=== PATIENT | male | born 1965 | race American Indian/Alaskan Native ===

== ENCOUNTER 2019-02-10 15:23 | Inpatient (IN) | payer MEDICARE, OTHER ==
[2019-02-10] MEDS ORDERED: Albuterol/Ipratropium 3.0-0.5 MG/3 ML Neb Soln NEB ONE (15:59)
[2019-02-10] MEDS ORDERED: Sodium Chloride 0.9% 1,000 ML IV ONE ×2 (15:59→16:38)
[2019-02-10 16:08] LABS: ANION GAP 19.1
--- NOTE | 2019-02-10 16:10 | EDM.PDOC ---
"ED HPI GENERAL MEDICAL PROBLEM - General Chief Complaint: General Stated Complaint: FLU, EAR INFECTION Time Seen by Provider: 02/10/19 15:35 Source of Information: Reports: Patient History Limitations: Reports: No Limitations - History of Present Illness INITIAL COMMENTS - FREE TEXT/NARRATIVE: The patient presents to the ER with a variety of concerns including earache, headache, fever, and vomiting. The patient states that he has been experiencing these symptoms since Tuesday; symptoms seemed to become worse yesterday. Earache is located to both ears; the patient states that he felt his ears pop yesterday and has green discharge drain bilaterally. Nasal congestion is present; does have thick green discharge from his nose. Headache is present to his forehead. Throat is sore and scratchy. No cough but shortness of breath is reported. The patient has also been experiencing episodes of nausea, vomiting, diarrhea, and on and off fevers. Has not checked his temperature at home, but has taken tylenol which has provided some relief. Patient does report a history of asthma and uses a nebulizer machine at home. No other concerns reported. 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 Headache Pain Score (Numeric/FACES): 10 - Related Data Allergies Allergy/AdvReac Type Severity Reaction Status Date / Time cat pelt standardized Allergy Hives Verified 07/01/14 02:15 allergenic ex [cat pelt standardized extract] Past Medical History Respiratory History: Reports: Asthma Genitourinary History: Reports: Acute Renal Failure, Dialysis Other Genitourinary History: currently not on dialysis Musculoskeletal History: Reports: Osteoporosis, Other (See Below) Other Musculoskeletal History: hip problems - Infectious Disease History Infectious Disease History: Reports: Hepatitis B Social & Family History - Tobacco Use Smoking Status *Q: Never Smoker Second Hand Smoke Exposure: No - Recreational Drug Use Recreational Drug Use: No ED ROS GENERAL - Review of Systems Review Of Systems: See Below Constitutional: Reports: Fever, Chills, Malaise, Weakness HEENT: Reports: Ear Discharge, Ear Pain, Sinus Problem, Throat Pain Respiratory: Reports: Shortness of Breath Cardiovascular: Reports: No Symptoms Endocrine: Reports: No Symptoms GI/Abdominal: Reports: Diarrhea, Nausea, Vomiting : Reports: No Symptoms Musculoskeletal: Reports: No Symptoms Skin: Reports: No Symptoms Neurological: Reports: Headache Hematologic/Lymphatic: Reports: No Symptoms ED EXAM, GENERAL - Physical Exam Exam: See Below Exam Limited By: No Limitations General Appearance: Alert, Mild Distress (Patient appeared to be in mild respiratory distress.) Eye Exam: Bilateral Eye: Normal Inspection, PERRL Ears: Normal External Exam, Other (Air fluid level present behind Right TM) Nose: Normal Inspection, Normal Mucosa, No Blood Throat/Mouth: Other (pharynx erythematous ) Head: Sinus Tenderness (frontal sinuses) Neck: Normal Inspection, Supple, Non-Tender, Full Range of Motion Respiratory/Chest: Lungs Clear, Respiratory Distress Cardiovascular: Normal Peripheral Pulses, Regular Rate, Rhythm, No Edema, No Gallop, No JVD, No Murmur, No Rub GI/Abdominal: Normal Bowel Sounds, Soft, Non-Tender, No Organomegaly, No Distention, No Mass Extremities: Normal Inspection, Normal Range of Motion, Non-Tender, Normal Capillary Refill, No Pedal Edema Neurological: Alert, Oriented, CN II-XII Intact, Normal Cognition, No Motor/ Sensory Deficits Skin Exam: Other (large fistula to LUE) Course - Vital Signs Last Recorded V/S: Last Vital Signs Temp 96.8 F 02/10/19 15:26 Pulse 129 H 02/10/19 16:23 Resp 32 H 02/10/19 15:26 BP 146/88 H 02/10/19 15:26 Pulse Ox 95 02/10/19 15:26 - Orders/Labs/Meds Orders: Active Orders 24 hr Category Date Time Status Peripheral IV Care [RC] . DIRECTED Care 02/10/19 15:36 Active RT Aerosol Therapy [RC] ASDIRECTED Care 02/10/19 16:00 Active Chest 2V [CR] Urgent Exams 02/10/19 16:01 Taken CULTURE BLOOD [BC] Stat Lab 02/10/19 15:41 Received Sodium Chloride 0.9% [Saline Flush] Med 02/10/19 15:35 Active 10 ml FLUSH ASDIRECTED PRN Peripheral IV Insertion Adult [OM.PC] Routine Oth 02/10/19 15:35 Ordered Medication Orders Sodium Chloride (Saline Flush) 10 ml FLUSH ASDIRECTED PRN PRN Reason: Keep Vein Open Labs: Laboratory Tests 02/10/19 02/10/19 02/10/19 Range/Units 15:41 15:41 15:41 WBC 19.2 H (5.0-10.0) 10^3/uL RBC 4.65 (4.6-6.2) 10^6/uL Hgb 15.1 (14.0-18.0) g/dL Hct 41.5 (40.0-54.0) % MCV 89.2 (80-100) fL MCH 32.5 (27.0-34.0) pg MCHC 36.4 H (33.0-35.0) g/dL Plt Count 143 L (150-450) 10^3/uL Neut % (Auto) 95.3 H (42.2-75.2) % Lymph % (Auto) 1.6 L (20.5-50.1) % [place] % (Auto) 3.0 (2-8) % Eos % (Auto) 0.0 L (1.0-3.0) % Baso % (Auto) 0.1 (0.0-1.0) % Sodium 124 L (135-145) mmol/L Potassium 3.1 L (3.6-5.0) mmol/L Chloride 91 L (101-111) mmol/L Carbon Dioxide 17.0 L (21.0-31.0) mmol/L Anion Gap 19.1 BUN 38 H (7-18) mg/dL Creatinine 2.4 H (0.6-1.3) mg/dL Est Cr Clr Drug Dosing 33.65 mL/min Estimated GFR (MDRD) 28 BUN/Creatinine Ratio 15.83 Glucose 131 H (74-105) mg/dL Lactic Acid 4.7 H (0.5-2.2) mmol/L Calcium 7.9 L (8.4-10.2) mg/dl Total Bilirubin 1.2 H (0.2-1.0) mg/dL AST 57 H (10-42) IU/L ALT 16 (10-60) IU/L Alkaline Phosphatase 97 (42-121) IU/L Total Protein 7.4 (6.7-8.2) g/dl Albumin 2.5 L (3.2-5.5) g/dl Globulin 4.9 Albumin/Globulin Ratio 0.51 Meds: Medications Generic Name Dose Route Start Last Admin Trade Name Freq PRN Reason Stop Dose Admin Sodium Chloride 10 ml 02/10/19 15:35 Saline Flush FLUSH ASDIRECTED PRN Keep Vein Open Discontinued Medications Generic Name Dose Route Start Last Admin Trade Name Freq PRN Reason Stop Dose Admin Albuterol/Ipratropium 3 ml 02/10/19 15:59 02/10/19 16:22 Duoneb 3.0-0.5 Mg/3 Ml NEB 02/10/19 16:00 3 ml ONETIME ONE Administration Sodium Chloride 1,000 mls @ 999 mls/hr 02/10/19 15:59 02/10/19 16:17 Normal Saline IV 02/10/19 16:59 999 mls/hr .BOLUS ONE Administration Azithromycin 500 mg/ Sodium 250 mls @ 250 mls/hr 02/10/19 16:38 02/10/19 17: 02 Chloride IV 02/10/19 17:37 250 mls/hr ONETIME ONE Administration Ceftriaxone Sodium 2 gm/ 100 mls @ 200 mls/hr 02/10/19 16:36 Sodium Chloride IV 02/10/19 17:05 ONETIME ONE Sodium Chloride 1,000 mls @ 999 mls/hr 02/10/19 16:38 Normal Saline IV 02/10/19 17:38 .BOLUS ONE - Radiology Interpretation Free Text/Narrative:: [facility] Final Radiology Report Call: [phone] assistance Online chat: [email or web address] Name: ELVI VELASCO Age: 53Years M Date: 02/10/2019 SSN: -- : [id number] Study: XR CHEST 2 VIEWS FRONTAL & LAT Requesting Physician: KAEL BOWERS Images: 3 Addl Studies: Provided Clinical History: Contrast: Contrast Medium: Contrast Amount: Contrast Method: Page 1 of 2 EXAM: XR Chest, 2 Views EXAM DATE/TIME: 02/10/2019 4:04 PM CLINICAL HISTORY: 53 years old, male; Tachypnea TECHNIQUE: Imaging protocol: XR of the chest Views: 2 views. COMPARISON: No relevant prior studies available. FINDINGS: Lungs: Lower lobe atelectasis or infiltrate in the posterior gastric angles. Pleural space: There is blunting of the posterior costophrenic angles. Heart/Mediastinum: The heart demonstrates mild diffuse enlargement. The pulmonary arteries are not enlarged. Bones/joints: Advanced degenerative joint disease is seen in the left shoulder. IMPRESSION: Posterior pleural effusion and atelectasis/infiltrate seen on the lateral view but difficult to localize on the frontal. Thank you for allowing us to participate in the care of your patient. Dictated and Authenticated by: Kp Gaytan MD [place], [place] | Final Radiology Report CONFIDENTIALITY STATEMENT This report is intended only for use by the referring physician, and only in accordance with law. If you received this in error, call [phone]. Page 2 of 2 02/10/2019 4:21 PM Central Time ([place] & [place]) Departure - Departure Time of Disposition: 17:40 (admitted to Dr. Garcia) Disposition: Admitted As Inpatient 64 Condition: Serious Clinical Impression: Pneumonia Qualifiers: Pneumonia type: due to unspecified organism Laterality: left Lung location: lower lobe of lung Qualified Code(s): J18.1 - Lobar pneumonia, unspecified organism Sepsis Qualifiers: Sepsis type: sepsis due to unspecified organism Sepsis acute organ dysfunction status: with acute organ dysfunction Severe sepsis acute organ dysfunction type : acute renal failure Acute renal failure type: unspecified Severe sepsis shock status: without septic shock Qualified Code(s): A41.9 - Sepsis, unspecified organism; R65.20 - Severe sepsis without septic shock; N17.9 - Acute kidney failure, unspecified Cellulitis of lower extremity Qualifiers: Laterality: left Qualified Code(s): L03.116 - Cellulitis of left lower limb - Discharge Information *PRESCRIPTION DRUG MONITORING PROGRAM REVIEWED*: No *COPY OF PRESCRIPTION DRUG MONITORING REPORT IN PATIENT KATELIN: No Forms: ED Department Discharge - My Orders Last 24 Hours: My Active Orders 02/10/19 15:35 Sodium Chloride 0.9% [Saline Flush] 10 ml FLUSH ASDIRECTED PRN Peripheral IV Insertion Adult [OM.PC] Routine 02/10/19 15:36 Peripheral IV Care [RC] . DIRECTED 02/10/19 15:41 CULTURE BLOOD [BC] Stat 02/10/19 16:00 RT Aerosol Therapy [RC] ASDIRECTED 02/10/19 16:01 Chest 2V [CR] Urgent - Assessment/Plan Last 24 Hours: My Active Orders 02/10/19 15:35 Sodium Chloride 0.9% [Saline Flush] 10 ml FLUSH ASDIRECTED PRN Peripheral IV Insertion Adult [OM.PC] Routine 02/10/19 15:36 Peripheral IV Care [RC] . DIRECTED 02/10/19 15:41 CULTURE BLOOD [BC] Stat 02/10/19 16:00 RT Aerosol Therapy [RC] ASDIRECTED 02/10/19 16:01 Chest 2V [CR] Urgent"
[2019-02-10] MEDS ORDERED: cefTRIAXone 2 GM in Sodium Chloride 0.9% 100 ML IV ONE (16:36)
[2019-02-10] MEDS ORDERED: Azithromycin 500 MG in Sodium Chloride 0.9% 250 ML IV ONE (16:38)
[2019-02-10] MEDS ORDERED: Potassium Chloride 10 MEQ Tab.ER PO ONE ×3 (18:00→23:00)
[2019-02-10] MEDS ORDERED: fentaNYL 50 MCG/HR Transdermal Patch TRDERM SCH (18:00)
[2019-02-10] MEDS ORDERED: Acetaminophen 325 MG Tab PO ONE (18:09)
--- NOTE | 2019-02-10 18:13 | PCM.HP ---
H&P History of Present Illness - General Date of Service: 02/10/19 Admit Problem/Dx: Admission Diagnosis/Problem Admission Diagnosis/Problem Sepsis Source of Information: Patient - History of Present Illness Initial Comments - Free Text/Narative: 53-year-old with a history of chronic pain syndrome on fentanyl, oxycodone. The patient says he has been sleepy lately and only using fentanyl at night. Last oxycodone was a day ago He presented with nausea, vomiting, diarrhea, shakiness, sore throat, earache [place] subjective fever. Increasing shortness of breath. He was not able to eat for days. No abdominal pain. Symptoms started a week ago and got worse day by day Headache Pain Score (Numeric/FACES): 10 - Related Data Allergies/Adverse Reactions: Allergies Allergy/AdvReac Type Severity Reaction Status Date / Time cat pelt standardized Allergy Hives Verified 02/10/19 17:49 allergenic ex [cat pelt standardized extract] Home Medications: Home Meds Metoprolol Succinate 100 mg PO DAILY 02/10/19 [History] Multivitamin [Multivitamins] 1 each PO DAILY 02/10/19 [History] fentaNYL [Duragesic] 75 mcg TOP ASDIRECTED 02/10/19 [History] oxyCODONE 5 mg PO QID 02/10/19 [History] Past Medical History Respiratory History: Reports: Asthma Genitourinary History: Reports: Acute Renal Failure, Dialysis Other Genitourinary History: currently not on dialysis Musculoskeletal History: Reports: Osteoporosis, Other (See Below) Other Musculoskeletal History: hip problems - Infectious Disease History Infectious Disease History: Reports: Hepatitis B Social & Family History - Tobacco Use Smoking Status *Q: Never Smoker Second Hand Smoke Exposure: No - Recreational Drug Use Recreational Drug Use: No H&P Review of Systems - Review of Systems: Review Of Systems: See Below General: Reports: Fever (Subjective), Chills, Malaise, Weakness Pulmonary: Reports: Shortness of Breath, Wheezing Cardiovascular: Denies: Chest Pain Gastrointestinal: Reports: Diarrhea, Nausea, Vomiting. Denies: Abdominal Pain Genitourinary: Denies: Dysuria Musculoskeletal: Denies: Neck Pain Psychiatric: Denies: Confusion Neurological: Reports: Dizziness Exam - Exam Exam: See Below - Vital Signs Vital Signs: Last Vital Signs Temp 102 C H 02/10/19 18:05 Pulse 118 H 02/10/19 18:05 Resp 20 02/10/19 18:05 BP 171/79 H 02/10/19 18:05 Pulse Ox 97 02/10/19 18:05 Weight: 107.048 kg - Exam General: Alert, Oriented Neck: Supple Lungs: Decreased Breath Sounds, Rhonchi Cardiovascular: Regular Rate, Regular Rhythm, Tachycardia GI/Abdominal Exam: Normal Bowel Sounds, Soft, Non-Tender, Other (Obese) Extremities: No Pedal Edema (Trace right-sided edema, trace to 1+ left sided) Skin: Warm, Other (Left lower extremity erythema) Neuro Extensive - Mental Status: Alert, Oriented x3 Neuro Extensive - Motor, Sensory, Reflexes: Other (Mild upper extremity shaking) Psychiatric: Alert, Normal Affect, Anxious - Patient Data Lab Results Last 24 hrs: Laboratory Results - last 24 hr 02/10/19 02/10/19 02/10/19 Range/Units 15:41 15:41 15:41 WBC 19.2 H (5.0-10.0) 10^3/uL RBC 4.65 (4.6-6.2) 10^6/uL Hgb 15.1 (14.0-18.0) g/dL Hct 41.5 (40.0-54.0) % MCV 89.2 (80-100) fL MCH 32.5 (27.0-34.0) pg MCHC 36.4 H (33.0-35.0) g/dL Plt Count 143 L (150-450) 10^3/uL Neut % (Auto) 95.3 H (42.2-75.2) % Lymph % (Auto) 1.6 L (20.5-50.1) % [place] % (Auto) 3.0 (2-8) % Eos % (Auto) 0.0 L (1.0-3.0) % Baso % (Auto) 0.1 (0.0-1.0) % Sodium 124 L (135-145) mmol/L Potassium 3.1 L (3.6-5.0) mmol/L Chloride 91 L (101-111) mmol/L Carbon Dioxide 17.0 L (21.0-31.0) mmol/L Anion Gap 19.1 BUN 38 H (7-18) mg/dL Creatinine 2.4 H (0.6-1.3) mg/dL Est Cr Clr Drug Dosing 33.65 mL/min Estimated GFR (MDRD) 28 BUN/Creatinine Ratio 15.83 Glucose 131 H (74-105) mg/dL Lactic Acid 4.7 H (0.5-2.2) mmol/L Calcium 7.9 L (8.4-10.2) mg/dl Total Bilirubin 1.2 H (0.2-1.0) mg/dL AST 57 H (10-42) IU/L ALT 16 (10-60) IU/L Alkaline Phosphatase 97 (42-121) IU/L Total Protein 7.4 (6.7-8.2) g/dl Albumin 2.5 L (3.2-5.5) g/dl Globulin 4.9 Albumin/Globulin Ratio 0.51 Result Diagrams: 02/10/19 15:41 02/10/19 15:41 [place]eto Results Last 24 hrs: Microbiology 02/10/19 15:33 Influenza Type A Antigen Screen - Final Nasal, Left NEGATIVE INFLUENZA A VIRUS AG REFERENCE RANGE: NEGATIVE Influenza Type B Antigen Screen - Final NEGATIVE INFLUENZA B VIRUS AG REFERENCE RANGE: NEGATIVE Imaging Impressions Last 24 hrs: Chest x-ray retrocardiac infiltrate versus atelectasis - Problem List (1) Cellulitis of lower extremity SNOMED Code(s): 561028160 ICD Code: L03.119 - CELLULITIS OF UNSPECIFIED PART OF LIMB Status: Acute Current Visit: Yes Qualifiers: Laterality: left Qualified Code(s): L03.116 - Cellulitis of left lower limb (2) Pneumonia SNOMED Code(s): 757207082 ICD Code: J18.9 - PNEUMONIA, UNSPECIFIED ORGANISM Status: Acute Current Visit: Yes Qualifiers: Pneumonia type: due to unspecified organism Laterality: left Lung location: lower lobe of lung Qualified Code(s): J18.1 - Lobar pneumonia, unspecified organism (3) Sepsis SNOMED Code(s): 63117061 ICD Code: A41.9 - SEPSIS, UNSPECIFIED ORGANISM Status: Acute Current Visit: Yes Qualifiers: Sepsis type: sepsis due to unspecified organism Sepsis acute organ dysfunction status: with acute organ dysfunction Severe sepsis acute organ dysfunction type: acute renal failure Acute renal failure type: unspecified Severe sepsis shock status: without septic shock Qualified Code(s): A41.9 - Sepsis, unspecified organism; R65.20 - Severe sepsis without septic shock; N17.9 - Acute kidney failure, unspecified Problem List Initiated/Reviewed/Updated: Yes Orders Last 24hrs: Active Orders 24 hr Category Date Time Status Admission Diagnosis [ADT] Routine ADT 02/10/19 17:43 Ordered Admission Status [Patient Status] [ADT] Routine ADT 02/10/19 17:44 Active Antiembolic Devices [RC] PER UNIT ROUTINE Care 02/10/19 18:11 Ordered Oxygen Therapy [RC] PRN Care 02/10/19 18:11 Ordered RT Aerosol Therapy [RC] ASDIRECTED Care 02/10/19 16:00 Active Up With Assistance [RC] ASDIRECTED Care 02/10/19 18:10 Ordered VTE/DVT Education [RC] PER UNIT ROUTINE Care 02/10/19 18:11 Ordered Vital Signs [RC] Q4H Care 02/10/19 18:11 Ordered Regular Diet [DIET] Diet 02/10/19 Breakfast Ordered Chest 2V [CR] Urgent Exams 02/10/19 16:01 Taken BASIC METABOLIC PANEL,BMP [CHEM] AM Lab 02/11/19 05:15 Ordered Blood Alcohol [ETHANOL BLOOD MEDICAL] [CHEM] Routine Lab 02/10/19 18:09 Ordered CBC WITH AUTO DIFF [HEME] AM Lab 02/11/19 05:15 Ordered CULTURE BLOOD [BC] Stat Lab 02/10/19 15:41 Received CULTURE URINE [RM] Routine Lab 02/10/19 18:05 Ordered DRUG SCREEN, URINE [URCHEM] Routine Lab 02/10/19 18:05 Ordered LACTIC ACID [CHEM] Timed Lab 02/10/19 19:30 Ordered LACTIC ACID [CHEM] Timed Lab 02/10/19 23:30 Ordered UA W/MICROSCOPIC [URIN] Routine Lab 02/10/19 18:05 Ordered Check Patch Med 02/10/19 21:00 Active 1 ea TRDERM BEDTIME Heparin Sodium Med 02/10/19 22:00 Ordered 5,000 units SUBCUT Q8HR Metoprolol Succinate [Metoprolol Succinate] Med 02/11/19 09:00 Ordered 100 mg PO DAILY Multivitamin [Multivitamins] Med 02/11/19 09:00 Ordered 1 each PO DAILY NS + KCl 20mEq/L [Normal Saline with 20 mEq KCl] 1,000 Med 02/10/19 18:00 Active ml IV ASDIRECTED Ondansetron [Zofran ODT] Med 02/10/19 18:10 Ordered 4 mg PO Q6H PRN Ondansetron [Zofran] Med 02/10/19 18:10 Ordered 4 mg IVPUSH Q6H PRN Pharmacy to Dose - Vancomycin Med 02/10/19 18:15 Ordered 1 dose .XX ASDIRECTED Piperacillin/Tazobactam [Zosyn] 2.25 gm Med 02/10/19 18:15 Ordered Sodium Chloride 0.9% [Normal Saline] 50 ml IV Q6HR Potassium Chloride [Klor-Con 10] Med 02/10/19 23:00 Once 40 meq PO ONETIME ONE Sodium Chloride 0.9% [Saline Flush] Med 02/10/19 15:35 Active 10 ml FLUSH ASDIRECTED PRN fentaNYL [Duragesic] Med 02/11/19 09:00 Active 75 mcg TOP Q72H oxyCODONE Med 02/10/19 17:56 Active 5 mg PO Q6H PRN Antiembolic Hose [OM.PC] Per Unit Routine Oth 02/10/19 18:11 Ordered Peripheral IV Insertion Adult [OM.PC] Routine Oth 02/10/19 15:35 Ordered Resuscitation Status Routine Resus Stat 02/10/19 18:10 Ordered Medication Orders Fentanyl (Duragesic) 75 mcg TOP Q72H RUTH Heparin Sodium (Porcine) (Heparin Sodium) 5,000 units SUBCUT Q8HR RUTH Potassium Chloride/Sodium Chloride (Normal Saline With 20 Meq Kcl) 1,000 mls @ 125 mls/hr IV ASDIRECTED RUTH Piperacillin Sod/Tazobactam (Sod 2.25 gm/ Sodium Chloride) 50 mls @ 100 mls/hr IV Q6HR RUTH Metoprolol Succinate (Toprol Xl) 100 mg PO DAILY [facility] Miscellaneous Information (Check Patch) 1 ea TRDERM BEDTIME [facility] Multivitamins (Thera) 1 each PO DAILY [facility] Ondansetron HCl (Zofran Odt) 4 mg PO Q6H PRN PRN Reason: nausea, able to take PO Ondansetron HCl (Zofran) 4 mg IVPUSH Q6H PRN PRN Reason: Nausea/Vomiting Oxycodone HCl (Oxycodone) 5 mg PO Q6H PRN PRN Reason: pain, severe Potassium Chloride (Klor-Con 10) 40 meq PO ONETIME ONE Stop: 02/10/19 23:01 Sodium Chloride (Saline Flush) 10 ml FLUSH ASDIRECTED PRN PRN Reason: Keep Vein Open Vancomycin HCl (Pharmacy To Dose - Vancomycin) 1 dose .XX ASDIRECTED RUTH Assessment/Plan Comment:: Sepsis Leukocytosis, Elevated lactic acid Tachycardia, acute renal failure Will hydrate well Repeat lactic acid Cellulitis Possible pneumonia Upper respiratory tract infection Will obtain blood culture Obtain urine culture treat empirically with Zosyn and vancomycin Acute renal failure, metabolic acidosis, hypokalemia, hyponatremia Baseline creatinine around 1.2 with GFR 50s Likely secondary to dehydration due to nausea, vomiting, diarrhea, low oral intake Will hydrate well We'll follow electrolytes and replace them as needed Give potassium replacement Chronic pain syndrome The patient says he has been sleepy lately We'll decrease fentanyl patch Continue fentanyl patch and oxycodone as needed we'll check urine drug screen, alcohol level History of alcohol intake but he says he was not drinking this week We'll give thiamine, folate, multivitamin Nausea, vomiting Likely secondary to gastritis Will treat symptomatically Deep venous thrombosis (DVT) prophylaxis will be with subcutaneous heparin.
[2019-02-10] MEDS: NS + KCl 20mEq/L 1,000 ML IV SCH (18:51)
[2019-02-10] MEDS: Piperacillin/Tazobactam 2.25 GM in Sodium Chloride 0.9% 50 ML IV SCH ×2 (18:53→23:31)
[2019-02-10] MEDS: Metoprolol Succinate 50 MG Tab.ER PO SCH (20:09)
[2019-02-10] MEDS: fentaNYL 50 MCG/HR Transdermal Patch TRDERM SCH (20:39)
[2019-02-10] MEDS: Multivitamins,Therapeutic Tab PO SCH (23:32)
[2019-02-10] MEDS: Thiamine 100 MG Tab PO SCH (23:33)
[2019-02-10] MEDS: Folic Acid 1 MG Tab PO SCH (23:34)
[2019-02-10] MEDS: Heparin Sodium 5,000 Units/ML Vial SUBCUT SCH (23:34)
[2019-02-10] MEDS: Acetaminophen 325 MG Tab PO PRN (23:44)
[2019-02-11] MEDS: Piperacillin/Tazobactam 2.25 GM in Sodium Chloride 0.9% 50 ML IV SCH ×3 (05:24→18:20)
[2019-02-11] MEDS: Heparin Sodium 5,000 Units/ML Vial SUBCUT SCH ×3 (05:28→21:00)
[2019-02-11] MEDS: NS + KCl 20mEq/L 1,000 ML IV SCH ×2 (05:29→16:39)
[2019-02-11 07:04] LABS: ANION GAP 14.7
[2019-02-11] MEDS: Multivitamins,Therapeutic Tab PO SCH ×2 (08:57→20:58)
[2019-02-11] MEDS: Metoprolol Succinate 50 MG Tab.ER PO SCH (08:58)
[2019-02-11] MEDS: oxyCODONE 5 MG Tab PO PRN ×2 (08:58→16:35)
[2019-02-11] MEDS ORDERED: fentaNYL 75 MCG/HR Transdermal Patch TOP SCH (09:00)
[2019-02-11] MEDS ORDERED: Metoprolol Succinate 50 MG Tab.ER PO SCH (09:00)
--- NOTE | 2019-02-11 10:55 | PCM.PN ---
- General Info Date of Service: 02/11/19 Admission Dx/Problem (Free Text): Admission Diagnosis/Problem Admission Diagnosis/Problem Sepsis Subjective Update: Feeling somewhat better but still very weak. Continues to have green diarrhea that started prior to admission. No significant abdominal pain associated with this. He is left leg redness is better, swelling is better. No chest pain and but has moderate shortness of breath with wheezing. Worse with activity. - Review of Systems General: Reports: Weakness Pulmonary: Reports: Shortness of Breath, Wheezing Cardiovascular: Reports: Edema. Denies: Chest Pain Gastrointestinal: Reports: Diarrhea, Nausea. Denies: Abdominal Pain - Patient Data Vitals - Most Recent: Last Vital Signs Temp 35.8 C 02/11/19 03:19 Pulse 75 02/11/19 08:58 Resp 22 H 02/11/19 03:19 BP 158/75 H 02/11/19 08:58 Pulse Ox 95 02/11/19 03:19 Weight - Most Recent: 109.406 kg I&O - Last 24 Hours: Intake & Output 02/10/19 02/11/19 02/11/19 22:59 06:59 14:59 Intake Total 838 310 Output Total 425 Balance 413 310 Lab Results Last 24 Hours: Laboratory Results - last 24 hr 02/10/19 02/10/19 02/10/19 Range/Units 15:41 15:41 15:41 WBC 19.2 H (5.0-10.0) 10^3/uL RBC 4.65 (4.6-6.2) 10^6/uL Hgb 15.1 (14.0-18.0) g/dL Hct 41.5 (40.0-54.0) % MCV 89.2 (80-100) fL MCH 32.5 (27.0-34.0) pg MCHC 36.4 H (33.0-35.0) g/dL Plt Count 143 L (150-450) 10^3/uL Neut % (Auto) 95.3 H (42.2-75.2) % Lymph % (Auto) 1.6 L (20.5-50.1) % [place] % (Auto) 3.0 (2-8) % Eos % (Auto) 0.0 L (1.0-3.0) % Baso % (Auto) 0.1 (0.0-1.0) % Add Manual Diff Neutrophils % (Manual) (42-75) % Band Neutrophils % % Atypical Lymphs % % Monocytes % (Manual) (2-8) % Platelet Estimate Sodium 124 L (135-145) mmol/L Potassium 3.1 L (3.6-5.0) mmol/L Chloride 91 L (101-111) mmol/L Carbon Dioxide 17.0 L (21.0-31.0) mmol/L Anion Gap 19.1 BUN 38 H (7-18) mg/dL Creatinine 2.4 H (0.6-1.3) mg/dL Est Cr Clr Drug Dosing 33.65 mL/min Estimated GFR (MDRD) 28 BUN/Creatinine Ratio 15.83 Glucose 131 H (74-105) mg/dL Lactic Acid 4.7 H (0.5-2.2) mmol/L Calcium 7.9 L (8.4-10.2) mg/dl Total Bilirubin 1.2 H (0.2-1.0) mg/dL AST 57 H (10-42) IU/L ALT 16 (10-60) IU/L Alkaline Phosphatase 97 (42-121) IU/L Total Protein 7.4 (6.7-8.2) g/dl Albumin 2.5 L (3.2-5.5) g/dl Globulin 4.9 Albumin/Globulin Ratio 0.51 Urine Color (YELLOW) Urine Appearance (CLEAR) Urine pH (5.0-9.0) Ur Specific [place] (1.005-1.030) Urine Protein (NEGATIVE) Urine Glucose (UA) (NEGATIVE) Urine Ketones (NEGATIVE) Urine Occult Blood (NEGATIVE) Urine Nitrite (NEGATIVE) Urine Bilirubin (NEGATIVE) Urine Urobilinogen (0.2-1.0) mg/dL Ur Leukocyte Esterase (NEGATIVE) Urine RBC /HPF Urine WBC (0-5/HPF) /HPF Ur Epithelial Cells (NOT SEEN) /HPF Amorphous Sediment (NOT SEEN) /HPF Urine Bacteria (0-FEW/HPF) /HPF Urine Yeast (NOT SEEN) /HPF Urine Opiates Screen (NEGATIVE) Ur Oxycodone Screen (NEGATIVE) Urine Methadone Screen (NEGATIVE) Ur Barbiturates Screen (NEGATIVE) U Tricyclic Antidepress (NEGATIVE) Ur Phencyclidine Scrn (NEGATIVE) Ur Amphetamine Screen (NEGATIVE) U Methamphetamines Scrn (NEGATIVE) Urine MDMA Screen (NEGATIVE) U Benzodiazepines Scrn (NEGATIVE) Urine Cocaine Screen (NEGATIVE) U Marijuana (THC) Screen (NEGATIVE) Ethyl Alcohol mg/dL 02/10/19 02/10/19 02/10/19 Range/Units 15:41 19:35 22:45 WBC (5.0-10.0) 10^3/uL RBC (4.6-6.2) 10^6/uL Hgb (14.0-18.0) g/dL Hct (40.0-54.0) % MCV (80-100) fL MCH (27.0-34.0) pg MCHC (33.0-35.0) g/dL Plt Count (150-450) 10^3/uL Neut % (Auto) (42.2-75.2) % Lymph % (Auto) (20.5-50.1) % [place] % (Auto) (2-8) % Eos % (Auto) (1.0-3.0) % Baso % (Auto) (0.0-1.0) % Add Manual Diff Neutrophils % (Manual) (42-75) % Band Neutrophils % % Atypical Lymphs % % Monocytes % (Manual) (2-8) % Platelet Estimate Sodium (135-145) mmol/L Potassium (3.6-5.0) mmol/L Chloride (101-111) mmol/L Carbon Dioxide (21.0-31.0) mmol/L Anion Gap BUN (7-18) mg/dL Creatinine (0.6-1.3) mg/dL Est Cr Clr Drug Dosing mL/min Estimated GFR (MDRD) BUN/Creatinine Ratio Glucose (74-105) mg/dL Lactic Acid 1.7 (0.5-2.2) mmol/L Calcium (8.4-10.2) mg/dl Total Bilirubin (0.2-1.0) mg/dL AST (10-42) IU/L ALT (10-60) IU/L Alkaline Phosphatase (42-121) IU/L Total Protein (6.7-8.2) g/dl Albumin (3.2-5.5) g/dl Globulin Albumin/Globulin Ratio Urine Color Yellow (YELLOW) Urine Appearance Slightly cloudy (CLEAR) Urine pH 5.5 (5.0-9.0) Ur Specific [place] 1.015 (1.005-1.030) Urine Protein 100 H (NEGATIVE) Urine Glucose (UA) Negative (NEGATIVE) Urine Ketones Negative (NEGATIVE) Urine Occult Blood Large H (NEGATIVE) Urine Nitrite Negative (NEGATIVE) Urine Bilirubin Negative (NEGATIVE) Urine Urobilinogen 0.2 (0.2-1.0) mg/dL Ur Leukocyte Esterase Negative (NEGATIVE) Urine RBC 20-30 H /HPF Urine WBC 10-20 H (0-5/HPF) /HPF Ur Epithelial Cells Moderate H (NOT SEEN) /HPF Amorphous Sediment Moderate (NOT SEEN) /HPF Urine Bacteria Moderate H (0-FEW/HPF) /HPF Urine Yeast Moderate H (NOT SEEN) /HPF Urine Opiates Screen (NEGATIVE) Ur Oxycodone Screen (NEGATIVE) Urine Methadone Screen (NEGATIVE) Ur Barbiturates Screen (NEGATIVE) U Tricyclic Antidepress (NEGATIVE) Ur Phencyclidine Scrn (NEGATIVE) Ur Amphetamine Screen (NEGATIVE) U Methamphetamines Scrn (NEGATIVE) Urine MDMA Screen (NEGATIVE) U Benzodiazepines Scrn (NEGATIVE) Urine Cocaine Screen (NEGATIVE) U Marijuana (THC) Screen (NEGATIVE) Ethyl Alcohol < 5 mg/dL 02/10/19 02/10/19 02/11/19 Range/Units 22:45 23:40 05:50 WBC 15.6 H (5.0-10.0) 10^3/uL RBC 4.01 L (4.6-6.2) 10^6/uL Hgb 12.7 L D (14.0-18.0) g/dL Hct 36.3 L (40.0-54.0) % MCV 90.5 (80-100) fL MCH 31.7 (27.0-34.0) pg MCHC 35.0 (33.0-35.0) g/dL Plt Count 133 L (150-450) 10^3/uL Neut % (Auto) 90.3 H (42.2-75.2) % Lymph % (Auto) 3.6 L (20.5-50.1) % [place] % (Auto) 6.0 (2-8) % Eos % (Auto) 0.0 L (1.0-3.0) % Baso % (Auto) 0.1 (0.0-1.0) % Add Manual Diff Yes Neutrophils % (Manual) 92 H (42-75) % Band Neutrophils % 4 % Atypical Lymphs % 1 % Monocytes % (Manual) 3 (2-8) % Platelet Estimate Decreased Sodium (135-145) mmol/L Potassium (3.6-5.0) mmol/L Chloride (101-111) mmol/L Carbon Dioxide (21.0-31.0) mmol/L Anion Gap BUN (7-18) mg/dL Creatinine (0.6-1.3) mg/dL Est Cr Clr Drug Dosing mL/min Estimated GFR (MDRD) BUN/Creatinine Ratio Glucose (74-105) mg/dL Lactic Acid 1.9 (0.5-2.2) mmol/L Calcium (8.4-10.2) mg/dl Total Bilirubin (0.2-1.0) mg/dL AST (10-42) IU/L ALT (10-60) IU/L Alkaline Phosphatase (42-121) IU/L Total Protein (6.7-8.2) g/dl Albumin (3.2-5.5) g/dl Globulin Albumin/Globulin Ratio Urine Color (YELLOW) Urine Appearance (CLEAR) Urine pH (5.0-9.0) Ur Specific [place] (1.005-1.030) Urine Protein (NEGATIVE) Urine Glucose (UA) (NEGATIVE) Urine Ketones (NEGATIVE) Urine Occult Blood (NEGATIVE) Urine Nitrite (NEGATIVE) Urine Bilirubin (NEGATIVE) Urine Urobilinogen (0.2-1.0) mg/dL Ur Leukocyte Esterase (NEGATIVE) Urine RBC /HPF Urine WBC (0-5/HPF) /HPF Ur Epithelial Cells (NOT SEEN) /HPF Amorphous Sediment (NOT SEEN) /HPF Urine Bacteria (0-FEW/HPF) /HPF Urine Yeast (NOT SEEN) /HPF Urine Opiates Screen Negative (NEGATIVE) Ur Oxycodone Screen Positive H (NEGATIVE) Urine Methadone Screen Negative (NEGATIVE) Ur Barbiturates Screen Negative (NEGATIVE) U Tricyclic Antidepress Negative (NEGATIVE) Ur Phencyclidine Scrn Negative (NEGATIVE) Ur Amphetamine Screen Negative (NEGATIVE) U Methamphetamines Scrn Negative (NEGATIVE) Urine MDMA Screen Negative (NEGATIVE) U Benzodiazepines Scrn Negative (NEGATIVE) Urine Cocaine Screen Negative (NEGATIVE) U Marijuana (THC) Screen Negative (NEGATIVE) Ethyl Alcohol mg/dL 02/11/19 Range/Units 05:50 WBC (5.0-10.0) 10^3/uL RBC (4.6-6.2) 10^6/uL Hgb (14.0-18.0) g/dL Hct (40.0-54.0) % MCV (80-100) fL MCH (27.0-34.0) pg MCHC (33.0-35.0) g/dL Plt Count (150-450) 10^3/uL Neut % (Auto) (42.2-75.2) % Lymph % (Auto) (20.5-50.1) % [place] % (Auto) (2-8) % Eos % (Auto) (1.0-3.0) % Baso % (Auto) (0.0-1.0) % Add Manual Diff Neutrophils % (Manual) (42-75) % Band Neutrophils % % Atypical Lymphs % % Monocytes % (Manual) (2-8) % Platelet Estimate Sodium 128 L (135-145) mmol/L Potassium 3.7 (3.6-5.0) mmol/L Chloride 100 L (101-111) mmol/L Carbon Dioxide 17.0 L (21.0-31.0) mmol/L Anion Gap 14.7 BUN 34 H (7-18) mg/dL Creatinine 1.8 H (0.6-1.3) mg/dL Est Cr Clr Drug Dosing 44.86 mL/min Estimated GFR (MDRD) 39 BUN/Creatinine Ratio Glucose 103 (74-105) mg/dL Lactic Acid (0.5-2.2) mmol/L Calcium 7.3 L (8.4-10.2) mg/dl Total Bilirubin (0.2-1.0) mg/dL AST (10-42) IU/L ALT (10-60) IU/L Alkaline Phosphatase (42-121) IU/L Total Protein (6.7-8.2) g/dl Albumin (3.2-5.5) g/dl Globulin Albumin/Globulin Ratio Urine Color (YELLOW) Urine Appearance (CLEAR) Urine pH (5.0-9.0) Ur Specific [place] (1.005-1.030) Urine Protein (NEGATIVE) Urine Glucose (UA) (NEGATIVE) Urine Ketones (NEGATIVE) Urine Occult Blood (NEGATIVE) Urine Nitrite (NEGATIVE) Urine Bilirubin (NEGATIVE) Urine Urobilinogen (0.2-1.0) mg/dL Ur Leukocyte Esterase (NEGATIVE) Urine RBC /HPF Urine WBC (0-5/HPF) /HPF Ur Epithelial Cells (NOT SEEN) /HPF Amorphous Sediment (NOT SEEN) /HPF Urine Bacteria (0-FEW/HPF) /HPF Urine Yeast (NOT SEEN) /HPF Urine Opiates Screen (NEGATIVE) Ur Oxycodone Screen (NEGATIVE) Urine Methadone Screen (NEGATIVE) Ur Barbiturates Screen (NEGATIVE) U Tricyclic Antidepress (NEGATIVE) Ur Phencyclidine Scrn (NEGATIVE) Ur Amphetamine Screen (NEGATIVE) U Methamphetamines Scrn (NEGATIVE) Urine MDMA Screen (NEGATIVE) U Benzodiazepines Scrn (NEGATIVE) Urine Cocaine Screen (NEGATIVE) U Marijuana (THC) Screen (NEGATIVE) Ethyl Alcohol mg/dL [place] Results Last 24 Hours: Microbiology 02/10/19 15:41 Anaerobic Blood Culture - Preliminary Blood 02/10/19 15:33 Influenza Type A Antigen Screen - Final Nasal, Left NEGATIVE INFLUENZA A VIRUS AG REFERENCE RANGE: NEGATIVE Influenza Type B Antigen Screen - Final NEGATIVE INFLUENZA B VIRUS AG REFERENCE RANGE: NEGATIVE Med Orders - Current: Current Medications Acetaminophen (Tylenol) 650 mg PO Q4H PRN PRN Reason: Fever Last Admin: 02/10/19 23:44 Dose: 650 mg Albuterol/Ipratropium (Duoneb 3.0-0.5 Mg/3 Ml) 3 ml NEB Q2H PRN PRN Reason: sob Albuterol/Ipratropium (Duoneb 3.0-0.5 Mg/3 Ml) 3 ml NEB Q6HRRT [facility] Fentanyl (Duragesic) 50 mcg TRDERM Q72H [facility] Last Admin: 02/10/19 20:39 Dose: 50 mcg Folic Acid (Folic Acid) 1 mg PO BEDTIME [facility] Last Admin: 02/10/19 23:34 Dose: 1 mg Heparin Sodium (Porcine) (Heparin Sodium) 5,000 units SUBCUT Q8HR [facility] Last Admin: 02/11/19 05:28 Dose: 5,000 units Potassium Chloride/Sodium Chloride (Normal Saline With 20 Meq Kcl) 1,000 mls @ 125 mls/hr IV ASDIRECTED [facility] Last Admin: 02/11/19 05:29 Dose: 125 mls/hr Piperacillin Sod/Tazobactam (Sod 2.25 gm/ Sodium Chloride) 50 mls @ 100 mls/hr IV Q6HR [facility] Last Admin: 02/11/19 05:24 Dose: 100 mls/hr Vancomycin HCl 1.25 gm/ Sodium (Chloride) 250 mls @ 166.667 mls/hr IV DAILY@ 1800 [facility] Last Admin: 02/10/19 20:43 Dose: 166.667 mls/hr Metoprolol Succinate (Toprol Xl) 100 mg PO DAILY [facility] Last Admin: 02/11/19 08:58 Dose: 100 mg Miscellaneous Information (Check Patch) 1 ea TRDERM BEDTIME [facility] Last Admin: 02/10/19 23:31 Dose: Not Given Multivitamins (Thera) 1 each PO DAILY [facility] Last Admin: 02/11/19 08:57 Dose: 1 each Multivitamins (Thera) 1 each PO BEDTIME [facility] Last Admin: 02/10/19 23:32 Dose: 1 each Ondansetron HCl (Zofran Odt) 4 mg PO Q6H PRN PRN Reason: nausea, able to take PO Ondansetron HCl (Zofran) 4 mg IVPUSH Q6H PRN PRN Reason: Nausea/Vomiting Oxycodone HCl (Oxycodone) 5 mg PO Q6H PRN PRN Reason: pain, severe Last Admin: 02/11/19 08:58 Dose: 5 mg Sodium Chloride (Saline Flush) 10 ml FLUSH ASDIRECTED PRN PRN Reason: Keep Vein Open Thiamine HCl (Vitamin B-1) 100 mg PO BEDTIME [facility] Last Admin: 02/10/19 23:33 Dose: 100 mg Vancomycin HCl (Pharmacy To Dose - Vancomycin) 1 dose .XX ASDIRECTED [facility] Discontinued Medications Acetaminophen (Tylenol) 650 mg PO NOW ONE Stop: 02/10/19 18:10 Last Admin: 02/10/19 18:15 Dose: 650 mg Albuterol/Ipratropium (Duoneb 3.0-0.5 Mg/3 Ml) 3 ml NEB ONETIME ONE Stop: 02/10/19 16:00 Last Admin: 02/10/19 16:22 Dose: 3 ml Fentanyl (Duragesic) 75 mcg TOP Q72H [facility] Sodium Chloride (Normal Saline) 1,000 mls @ 999 mls/hr IV .BOLUS ONE Stop: 02/10/19 16:59 Last Admin: 02/10/19 16:17 Dose: 999 mls/hr Azithromycin 500 mg/ Sodium (Chloride) 250 mls @ 250 mls/hr IV ONETIME ONE Stop: 02/10/19 17:37 Last Admin: 02/10/19 17:02 Dose: 250 mls/hr Ceftriaxone Sodium 2 gm/ (Sodium Chloride) 100 mls @ 200 mls/hr IV ONETIME ONE Stop: 02/10/19 17:05 Last Admin: 02/10/19 18:13 Dose: 200 mls/hr Sodium Chloride (Normal Saline) 1,000 mls @ 999 mls/hr IV .BOLUS ONE Stop: 02/10/19 17:38 Last Admin: 02/10/19 18:14 Dose: 999 mls/hr Metoprolol Succinate (Toprol Xl) 100 mg PO DAILY [facility] Miscellaneous Information (Check Patch) 1 ea TRDERM BEDTIME [facility] Miscellaneous Information (Check Patch) 1 ea TRDERM BEDTIME [facility] Potassium Chloride (Klor-Con 10) 40 meq PO ONETIME ONE Stop: 02/10/19 23:01 Last Admin: 02/10/19 23:32 Dose: 40 meq Potassium Chloride (Klor-Con 10) 40 meq PO ONETIME ONE Stop: 02/10/19 20:16 Last Admin: 02/10/19 20:37 Dose: 40 meq - Exam General: Alert, Oriented Neck: Supple Lungs: Wheezing Cardiovascular: Regular Rate, Regular Rhythm GI/Abdominal Exam: Normal Bowel Sounds, Soft, Non-Tender Extremities: Pedal Edema Skin: Warm, Other (left leg erythema) Neurological: No New Focal Deficit Psy/Mental Status: Alert, Normal Affect, Normal Mood - Problem List & Annotations (1) Cellulitis of lower extremity SNOMED Code(s): 708914177 Code(s): L03.119 - CELLULITIS OF UNSPECIFIED PART OF LIMB Status: Acute Current Visit: Yes Qualifiers: Laterality: left Qualified Code(s): L03.116 - Cellulitis of left lower limb (2) Pneumonia SNOMED Code(s): 273810775 Code(s): J18.9 - PNEUMONIA, UNSPECIFIED ORGANISM Status: Acute Current Visit: Yes Qualifiers: Pneumonia type: due to unspecified organism Laterality: left Lung location: lower lobe of lung Qualified Code(s): J18.1 - Lobar pneumonia, unspecified organism (3) Sepsis SNOMED Code(s): 26978205 Code(s): A41.9 - SEPSIS, UNSPECIFIED ORGANISM Status: Acute Current Visit : Yes Qualifiers: Sepsis type: sepsis due to unspecified organism Sepsis acute organ dysfunction status: with acute organ dysfunction Severe sepsis acute organ dysfunction type: acute renal failure Acute renal failure type: unspecified Severe sepsis shock status: without septic shock Qualified Code(s): A41.9 - Sepsis, unspecified organism; R65.20 - Severe sepsis without septic shock; N17.9 - Acute kidney failure, unspecified - Problem List Review Problem List Initiated/Reviewed/Updated: Yes - My Orders Last 24 Hours: My Active Orders 02/10/19 17:43 Admission Diagnosis [ADT] Routine 02/10/19 17:44 Admission Status [Patient Status] [ADT] Routine 02/10/19 17:56 oxyCODONE 5 mg PO Q6H PRN 02/10/19 18:00 NS + KCl 20mEq/L [Normal Saline with 20 mEq KCl] 1,000 ml IV ASDIRECTED 02/10/19 18:10 Up With Assistance [RC] ASDIRECTED Ondansetron [Zofran ODT] 4 mg PO Q6H PRN Ondansetron [Zofran] 4 mg IVPUSH Q6H PRN Resuscitation Status Routine 02/10/19 18:11 Antiembolic Devices [RC] PER UNIT ROUTINE Oxygen Therapy [RC] PRN VTE/DVT Education [RC] PER UNIT ROUTINE Vital Signs [RC] 00,04,08,12,16,20 Antiembolic Hose [OM.PC] Per Unit Routine 02/10/19 18:15 Pharmacy to Dose - Vancomycin 1 dose .XX ASDIRECTED Piperacillin/Tazobactam [Zosyn] 2.25 gm Sodium Chloride 0.9% [Normal Saline] 50 ml IV Q6HR 02/10/19 18:20 Metoprolol Succinate [Toprol XL] 100 mg PO DAILY 02/10/19 20:15 Vancomycin 1.25 gm Sodium Chloride 0.9% [Normal Saline] 250 ml IV DAILY@1800 02/10/19 21:00 Check Patch 1 ea TRDERM BEDTIME Folic Acid 1 mg PO BEDTIME Multivitamins,Therapeutic [Thera] 1 each PO BEDTIME Thiamine [Vitamin B-1] 100 mg PO BEDTIME fentaNYL [Duragesic] 50 mcg TRDERM Q72H 02/10/19 22:00 Heparin Sodium 5,000 units SUBCUT Q8HR 02/10/19 22:45 CULTURE URINE [RM] Routine 02/10/19 23:36 Acetaminophen [Tylenol] 650 mg PO Q4H PRN 02/11/19 09:00 Multivitamins,Therapeutic [Thera] 1 each PO DAILY 02/11/19 10:48 RT Aerosol Therapy [RC] ASDIRECTED Albuterol/Ipratropium [DuoNeb 3.0-0.5 MG/3 ML] 3 ml NEB Q2H PRN 02/11/19 13:00 Albuterol/Ipratropium [DuoNeb 3.0-0.5 MG/3 ML] 3 ml NEB Q6HRRT 02/12/19 05:15 BASIC METABOLIC PANEL,BMP [CHEM] AM CBC WITH AUTO DIFF [HEME] AM - Plan Plan:: Sepsis Leukocytosis, Elevated lactic acid Tachycardia, acute renal failure improving cont to hydrate well Cellulitis of left leg Possible pneumonia Upper respiratory tract infection Blood culture: pending urine culture: pending treat empirically with Zosyn and vancomycin Acute renal failure, metabolic acidosis, hypokalemia, hyponatremia Baseline creatinine around 1.2 with GFR 50s Likely secondary to dehydration due to nausea, vomiting, diarrhea, low oral intake improved Will hydrate well We'll follow electrolytes and replace them as needed Chronic pain syndrome Urine tox : + oxycodone - opiates per report fentanyl patch has been filled 2 times in the past few days We'll cont with decrease fentanyl patch History of alcohol intake but he says he was not drinking this week We'll give thiamine, folate, multivitamin Nausea, vomiting Likely secondary to gastritis Will treat symptomatically hydration pt/ot eval and treat copd add duoneb Deep venous thrombosis (DVT) prophylaxis will be with subcutaneous heparin.
[2019-02-11] MEDS: Albuterol/Ipratropium 3.0-0.5 MG/3 ML Neb Soln NEB PRN (11:06)
[2019-02-11] MEDS: Acetaminophen 325 MG Tab PO PRN ×2 (12:45→16:45)
[2019-02-11] MEDS: Ondansetron 4 MG Tab.DIS PO PRN (16:36)
[2019-02-11] MEDS: Albuterol/Ipratropium 3.0-0.5 MG/3 ML Neb Soln NEB SCH ×2 (16:43→20:13)
[2019-02-11] MEDS: Thiamine 100 MG Tab PO SCH (20:58)
[2019-02-11] MEDS: Folic Acid 1 MG Tab PO SCH (20:58)
[2019-02-12] MEDS: Piperacillin/Tazobactam 2.25 GM in Sodium Chloride 0.9% 50 ML IV SCH ×5 (00:31→23:34)
[2019-02-12] MEDS: Albuterol/Ipratropium 3.0-0.5 MG/3 ML Neb Soln NEB PRN ×2 (00:32→20:38)
[2019-02-12] MEDS: Albuterol/Ipratropium 3.0-0.5 MG/3 ML Neb Soln NEB SCH ×4 (00:39→19:24)
[2019-02-12] MEDS: oxyCODONE 5 MG Tab PO PRN ×4 (01:27→20:52)
[2019-02-12] MEDS: NS + KCl 20mEq/L 1,000 ML IV SCH (05:31)
[2019-02-12] MEDS: Heparin Sodium 5,000 Units/ML Vial SUBCUT SCH ×3 (06:25→21:20)
[2019-02-12 07:10] LABS: ANION GAP 13.4
[2019-02-12] MEDS: Multivitamins,Therapeutic Tab PO SCH ×2 (08:34→21:08)
[2019-02-12] MEDS: Metoprolol Succinate 50 MG Tab.ER PO SCH (08:34)
[2019-02-12] MEDS: Ondansetron 4 MG Tab.DIS PO PRN (08:35)
--- NOTE | 2019-02-12 13:11 | PCM.PN ---
- General Info Date of Service: 02/12/19 Admission Dx/Problem (Free Text): Admission Diagnosis/Problem Admission Diagnosis/Problem Sepsis Subjective Update: Feeling better has r. ear ache He is left leg redness is better, swelling is still present No chest pain and but has moderate shortness of breath with wheezing. Worse with activity. Functional Status: Reports: Tolerating Diet. Denies: Pain Controlled - Review of Systems General: Reports: Weakness. Denies: Fever HEENT: Reports: Ear Pain Pulmonary: Reports: Shortness of Breath, Wheezing Cardiovascular: Reports: Edema. Denies: Chest Pain Gastrointestinal: Denies: Abdominal Pain Neurological: Denies: Confusion - Patient Data Vitals - Most Recent: Last Vital Signs Temp 37.0 C 02/12/19 08:00 Pulse 77 02/12/19 08:34 Resp 20 02/12/19 08:00 BP 144/72 H 02/12/19 08:34 Pulse Ox 98 02/12/19 08:00 Weight - Most Recent: 111.947 kg I&O - Last 24 Hours: Intake & Output 02/11/19 02/12/19 02/12/19 22:59 06:59 14:59 Intake Total 2045 1310 703 Output Total 1200 Balance 845 1310 703 Lab Results Last 24 Hours: Laboratory Results - last 24 hr 02/12/19 02/12/19 Range/Units 06:33 06:33 WBC 13.1 H (5.0-10.0) 10^3/uL RBC 4.24 L (4.6-6.2) 10^6/uL Hgb 13.5 L (14.0-18.0) g/dL Hct 38.6 L (40.0-54.0) % MCV 91.0 (80-100) fL MCH 31.8 (27.0-34.0) pg MCHC 35.0 (33.0-35.0) g/dL Plt Count 183 (150-450) 10^3/uL Neut % (Auto) 86.7 H (42.2-75.2) % Lymph % (Auto) 6.5 L (20.5-50.1) % Blanco % (Auto) 6.3 (2-8) % Eos % (Auto) 0.5 L (1.0-3.0) % Baso % (Auto) 0.0 (0.0-1.0) % Sodium 131 L (135-145) mmol/L Potassium 3.4 L (3.6-5.0) mmol/L Chloride 103 (101-111) mmol/L Carbon Dioxide 18.0 L (21.0-31.0) mmol/L Anion Gap 13.4 BUN 33 H (7-18) mg/dL Creatinine 1.7 H (0.6-1.3) mg/dL Est Cr Clr Drug Dosing 47.50 mL/min Estimated GFR (MDRD) 42 Glucose 105 (74-105) mg/dL Calcium 7.7 L (8.4-10.2) mg/dl Teto Results Last 24 Hours: Microbiology 02/10/19 15:41 Aerobic Blood Culture - Preliminary Blood Anaerobic Blood Culture - Preliminary Med Orders - Current: Current Medications Acetaminophen (Tylenol) 650 mg PO Q4H PRN PRN Reason: Fever Last Admin: 02/11/19 16:45 Dose: 650 mg Albuterol/Ipratropium (Duoneb 3.0-0.5 Mg/3 Ml) 3 ml NEB Q2H PRN PRN Reason: sob Last Admin: 02/11/19 11:06 Dose: 3 ml Albuterol/Ipratropium (Duoneb 3.0-0.5 Mg/3 Ml) 3 ml NEB Q6HRRT [facility] Last Admin: 02/12/19 07:42 Dose: 3 ml Ciprofloxacin (Ciprofloxacin 0.3% Oph Soln) 0 ml .XX TID [facility] Fentanyl (Duragesic) 50 mcg TRDERM Q72H [facility] Last Admin: 02/10/19 20:39 Dose: 50 mcg Folic Acid (Folic Acid) 1 mg PO BEDTIME [facility] Last Admin: 02/11/19 20:58 Dose: 1 mg Heparin Sodium (Porcine) (Heparin Sodium) 5,000 units SUBCUT Q8HR [facility] Last Admin: 02/12/19 06:25 Dose: 5,000 units Piperacillin Sod/Tazobactam (Sod 2.25 gm/ Sodium Chloride) 50 mls @ 100 mls/hr IV Q6HR [facility] Last Admin: 02/12/19 12:07 Dose: 100 mls/hr Vancomycin HCl 1.25 gm/ Sodium (Chloride) 250 mls @ 166.667 mls/hr IV Q24H [facility] Metoprolol Succinate (Toprol Xl) 100 mg PO DAILY [facility] Last Admin: 02/12/19 08:34 Dose: 100 mg Miscellaneous Information (Check Patch) 1 ea TRDERM BEDTIME [facility] Last Admin: 02/11/19 21:00 Dose: 1 ea Multivitamins (Thera) 1 each PO DAILY [facility] Last Admin: 02/12/19 08:34 Dose: 1 each Multivitamins (Thera) 1 each PO BEDTIME [facility] Last Admin: 02/11/19 20:58 Dose: 1 each Ondansetron HCl (Zofran Odt) 4 mg PO Q6H PRN PRN Reason: nausea, able to take PO Last Admin: 02/12/19 08:35 Dose: 4 mg Ondansetron HCl (Zofran) 4 mg IVPUSH Q6H PRN PRN Reason: Nausea/Vomiting Oxycodone HCl (Oxycodone) 5 mg PO Q6H PRN PRN Reason: pain, severe Last Admin: 02/12/19 07:53 Dose: 5 mg Potassium Chloride (Klor-Con 10) 40 meq PO ONETIME ONE Stop: 02/12/19 13:00 Sodium Chloride (Saline Flush) 10 ml FLUSH ASDIRECTED PRN PRN Reason: Keep Vein Open Thiamine HCl (Vitamin B-1) 100 mg PO BEDTIME [facility] Last Admin: 02/11/19 20:58 Dose: 100 mg Vancomycin HCl (Pharmacy To Dose - Vancomycin) 1 dose .XX ASDIRECTED [facility] Discontinued Medications Acetaminophen (Tylenol) 650 mg PO NOW ONE Stop: 02/10/19 18:10 Last Admin: 02/10/19 18:15 Dose: 650 mg Albuterol/Ipratropium (Duoneb 3.0-0.5 Mg/3 Ml) 3 ml NEB ONETIME ONE Stop: 02/10/19 16:00 Last Admin: 02/10/19 16:22 Dose: 3 ml Fentanyl (Duragesic) 75 mcg TOP Q72H [facility] Sodium Chloride (Normal Saline) 1,000 mls @ 999 mls/hr IV .BOLUS ONE Stop: 02/10/19 16:59 Last Admin: 02/10/19 16:17 Dose: 999 mls/hr Azithromycin 500 mg/ Sodium (Chloride) 250 mls @ 250 mls/hr IV ONETIME ONE Stop: 02/10/19 17:37 Last Admin: 02/10/19 17:02 Dose: 250 mls/hr Ceftriaxone Sodium 2 gm/ (Sodium Chloride) 100 mls @ 200 mls/hr IV ONETIME ONE Stop: 02/10/19 17:05 Last Admin: 02/10/19 18:13 Dose: 200 mls/hr Sodium Chloride (Normal Saline) 1,000 mls @ 999 mls/hr IV .BOLUS ONE Stop: 02/10/19 17:38 Last Admin: 02/10/19 18:14 Dose: 999 mls/hr Potassium Chloride/Sodium Chloride (Normal Saline With 20 Meq Kcl) 1,000 mls @ 125 mls/hr IV ASDIRECTED [facility] Last Admin: 02/12/19 05:31 Dose: 125 mls/hr Vancomycin HCl 1.25 gm/ Sodium (Chloride) 250 mls @ 166.667 mls/hr IV DAILY@ 1800 [facility] Last Admin: 02/11/19 19:28 Dose: 166.667 mls/hr Metoprolol Succinate (Toprol Xl) 100 mg PO DAILY [facility] Miscellaneous Information (Check Patch) 1 ea TRDERM BEDTIME [facility] Miscellaneous Information (Check Patch) 1 ea TRDERM BEDTIME [facility] Potassium Chloride (Klor-Con 10) 40 meq PO ONETIME ONE Stop: 02/10/19 23:01 Last Admin: 02/10/19 23:32 Dose: 40 meq Potassium Chloride (Klor-Con 10) 40 meq PO ONETIME ONE Stop: 02/10/19 20:16 Last Admin: 02/10/19 20:37 Dose: 40 meq - Exam Quality Assessment: Supplemental Oxygen General: Alert, Oriented Neck: Supple Lungs: Clear to Auscultation, Normal Respiratory Effort Cardiovascular: Regular Rate, Regular Rhythm GI/Abdominal Exam: Normal Bowel Sounds, Soft, Non-Tender Extremities: Pedal Edema (b/l), Other (left UE fistula) Skin: Warm, Dry Neurological: No New Focal Deficit, Other (tremor) Psy/Mental Status: Alert, Normal Affect, Normal Mood - Problem List & Annotations (1) Cellulitis of lower extremity SNOMED Code(s): 143698824 Code(s): L03.119 - CELLULITIS OF UNSPECIFIED PART OF LIMB Status: Acute Current Visit: Yes Qualifiers: Laterality: left Qualified Code(s): L03.116 - Cellulitis of left lower limb (2) Pneumonia SNOMED Code(s): 120420978 Code(s): J18.9 - PNEUMONIA, UNSPECIFIED ORGANISM Status: Acute Current Visit: Yes Qualifiers: Pneumonia type: due to unspecified organism Laterality: left Lung location: lower lobe of lung Qualified Code(s): J18.1 - Lobar pneumonia, unspecified organism (3) Sepsis SNOMED Code(s): 56568241 Code(s): A41.9 - SEPSIS, UNSPECIFIED ORGANISM Status: Acute Current Visit : Yes Qualifiers: Sepsis type: sepsis due to unspecified organism Sepsis acute organ dysfunction status: with acute organ dysfunction Severe sepsis acute organ dysfunction type: acute renal failure Acute renal failure type: unspecified Severe sepsis shock status: without septic shock Qualified Code(s): A41.9 - Sepsis, unspecified organism; R65.20 - Severe sepsis without septic shock; N17.9 - Acute kidney failure, unspecified - Problem List Review Problem List Initiated/Reviewed/Updated: Yes - My Orders Last 24 Hours: My Active Orders 02/11/19 13:00 Albuterol/Ipratropium [DuoNeb 3.0-0.5 MG/3 ML] 3 ml NEB Q6HRRT 02/12/19 12:58 Antiembolic Devices [RC] PER UNIT ROUTINE [facility]ATH[facility] Hose [Antiembolic Hose] [OM.PC] Routine 02/12/19 12:59 Potassium Chloride [Klor-Con 10] 40 meq PO ONETIME ONE 02/12/19 14:00 Ciprofloxacin [Ciprofloxacin 0.3% Ophth Soln] 0 ml .XX TID 02/12/19 20:00 Vancomycin 1.25 gm Sodium Chloride 0.9% [Normal Saline] 250 ml IV Q24H 02/13/19 05:15 BASIC METABOLIC PANEL,BMP [CHEM] AM CBC WITH AUTO DIFF [HEME] AM - Plan Plan:: Sepsis Leukocytosis, Elevated lactic acid Tachycardia, acute renal failure resolved stop IVF Cellulitis of left leg Possible pneumonia Upper respiratory tract infection Blood culture: pending - neg for now urine culture: pending treat empirically with Zosyn and vancomycin cipro for otitis media Acute renal failure, metabolic acidosis, hypokalemia, hyponatremia Baseline creatinine around 1.2 with GFR 50s Likely secondary to dehydration due to nausea, vomiting, diarrhea, low oral intake improved stop IVF re: edema, use katherin hose hold diuretics for now We'll follow electrolytes and replace them as needed Chronic pain syndrome Urine tox : + oxycodone - opiates per report fentanyl patch has been filled 2 times in the past few days We'll cont with decreased fentanyl patch History of alcohol intake but he says he was not drinking this week We'll give thiamine, folate, multivitamin Nausea, vomiting Likely secondary to gastritis Will treat symptomatically improved pt/ot eval and treat copd cont duoneb Deep venous thrombosis (DVT) prophylaxis will be with subcutaneous heparin.
[2019-02-12] MEDS: Ciprofloxacin 0.3% Ophth Soln 5 ML Bottle SCH ×3 (13:25→21:08)
[2019-02-12] MEDS ORDERED: Potassium Chloride 10 MEQ Tab.ER PO ONE (14:00)
[2019-02-12] MEDS: Sodium Chloride 0.9% 10 ML Syringe FLUSH PRN ×2 (20:29→23:33)
[2019-02-12] MEDS: Thiamine 100 MG Tab PO SCH (20:49)
[2019-02-12] MEDS: Folic Acid 1 MG Tab PO SCH (20:49)
[2019-02-13] MEDS: Sodium Chloride 0.9% 10 ML Syringe FLUSH PRN ×4 (00:17→23:56)
[2019-02-13] MEDS: Albuterol/Ipratropium 3.0-0.5 MG/3 ML Neb Soln NEB SCH ×4 (00:20→18:30)
[2019-02-13] MEDS: oxyCODONE 5 MG Tab PO PRN ×3 (02:59→18:29)
[2019-02-13] MEDS: Piperacillin/Tazobactam 2.25 GM in Sodium Chloride 0.9% 50 ML IV SCH ×3 (06:34→18:28)
[2019-02-13] MEDS: Heparin Sodium 5,000 Units/ML Vial SUBCUT SCH ×3 (06:39→22:35)
[2019-02-13 07:02] LABS: ANION GAP 12.7
[2019-02-13] MEDS: Metoprolol Succinate 50 MG Tab.ER PO SCH (08:59)
[2019-02-13] MEDS: Ciprofloxacin 0.3% Ophth Soln 5 ML Bottle SCH ×3 (09:00→22:21)
[2019-02-13] MEDS: Multivitamins,Therapeutic Tab PO SCH ×2 (09:00→22:10)
--- NOTE | 2019-02-13 11:05 | PCM.PN ---
- General Info Date of Service: 02/13/19 Admission Dx/Problem (Free Text): Admission Diagnosis/Problem Admission Diagnosis/Problem Sepsis Subjective Update: Feeling better but still very weak His left leg redness is still present associated with swelling. No chest pain and but has moderate shortness of breath with wheezing. Worse with activity. Weak, needs help to get out of bed. Functional Status: Reports: Pain Controlled - Review of Systems General: Reports: Weakness. Denies: Fever Pulmonary: Reports: Shortness of Breath, Wheezing Cardiovascular: Reports: Edema. Denies: Chest Pain Gastrointestinal: Denies: Abdominal Pain Skin: Denies: Cyanosis - Patient Data Vitals - Most Recent: Last Vital Signs Temp 36.8 C 02/13/19 07:57 Pulse 76 02/13/19 08:59 Resp 20 02/13/19 07:57 BP 143/69 H 02/13/19 08:59 Pulse Ox 94 L 02/13/19 07:57 Weight - Most Recent: 113.625 kg I&O - Last 24 Hours: Intake & Output 02/12/19 02/13/19 02/13/19 22:59 06:59 14:59 Intake Total 5159 550 50 Output Total 350 Balance 5159 200 50 Lab Results Last 24 Hours: Laboratory Results - last 24 hr 02/13/19 02/13/19 Range/Units 06:05 06:05 WBC 13.2 H (5.0-10.0) 10^3/uL RBC 3.86 L (4.6-6.2) 10^6/uL Hgb 12.4 L (14.0-18.0) g/dL Hct 35.1 L (40.0-54.0) % MCV 90.9 (80-100) fL MCH 32.1 (27.0-34.0) pg MCHC 35.3 H (33.0-35.0) g/dL Plt Count 240 (150-450) 10^3/uL Neut % (Auto) 83.0 H (42.2-75.2) % Lymph % (Auto) 9.6 L (20.5-50.1) % Bates % (Auto) 5.8 (2-8) % Eos % (Auto) 1.5 (1.0-3.0) % Baso % (Auto) 0.1 (0.0-1.0) % Add Manual Diff Yes Neutrophils % (Manual) 86 H (42-75) % Lymphocytes % (Manual) 9 L (20-50) % Monocytes % (Manual) 2 (2-8) % Eosinophils % (Manual) 3 (1-3) % Sodium 125 L (135-145) mmol/L Potassium 3.7 (3.6-5.0) mmol/L Chloride 98 L (101-111) mmol/L Carbon Dioxide 18.0 L (21.0-31.0) mmol/L Anion Gap 12.7 BUN 26 H (7-18) mg/dL Creatinine 1.6 H (0.6-1.3) mg/dL Est Cr Clr Drug Dosing 50.47 mL/min Estimated GFR (MDRD) 45 Glucose 86 (74-105) mg/dL Calcium 7.5 L (8.4-10.2) mg/dl Teto Results Last 24 Hours: Microbiology 02/10/19 22:45 Urine Culture - Final Urine, Clean Catch 02/10/19 15:41 Aerobic Blood Culture - Final Blood Streptococcus Dysgalactiae Anaerobic Blood Culture - Final Med Orders - Current: Current Medications Acetaminophen (Tylenol) 650 mg PO Q4H PRN PRN Reason: Fever Last Admin: 02/11/19 16:45 Dose: 650 mg Albuterol/Ipratropium (Duoneb 3.0-0.5 Mg/3 Ml) 3 ml NEB Q2H PRN PRN Reason: sob Last Admin: 02/12/19 20:38 Dose: 3 ml Albuterol/Ipratropium (Duoneb 3.0-0.5 Mg/3 Ml) 3 ml NEB Q6HRRT [facility] Last Admin: 02/13/19 07:34 Dose: 3 ml Ciprofloxacin (Ciprofloxacin 0.3% Ophth Soln) 0 ml .XX TID [facility] Last Admin: 02/13/19 09:00 Dose: 4 drop Fentanyl (Duragesic) 50 mcg TRDERM Q72H [facility] Last Admin: 02/10/19 20:39 Dose: 50 mcg Folic Acid (Folic Acid) 1 mg PO BEDTIME [facility] Last Admin: 02/12/19 20:49 Dose: 1 mg Furosemide (Lasix) 20 mg PO BIDDIURETIC [facility] Heparin Sodium (Porcine) (Heparin Sodium) 5,000 units SUBCUT Q8HR [facility] Last Admin: 02/13/19 06:39 Dose: 5,000 units Piperacillin Sod/Tazobactam (Sod 2.25 gm/ Sodium Chloride) 50 mls @ 100 mls/hr IV Q6HR [facility] Last Infusion: 02/13/19 07:18 Dose: Infused Vancomycin HCl 1.25 gm/ Sodium (Chloride) 250 mls @ 166.667 mls/hr IV Q24H [facility] Last Admin: 02/12/19 20:29 Dose: 166.667 mls/hr Metoprolol Succinate (Toprol Xl) 100 mg PO DAILY [facility] Last Admin: 02/13/19 08:59 Dose: 100 mg Miscellaneous Information (Check Patch) 1 ea TRDERM BEDTIME [facility] Last Admin: 02/12/19 20:46 Dose: 1 ea Multivitamins (Thera) 1 each PO DAILY [facility] Last Admin: 02/13/19 09:00 Dose: 1 each Multivitamins (Thera) 1 each PO BEDTIME [facility] Last Admin: 02/12/19 21:08 Dose: Not Given Ondansetron HCl (Zofran Odt) 4 mg PO Q6H PRN PRN Reason: nausea, able to take PO Last Admin: 02/12/19 08:35 Dose: 4 mg Ondansetron HCl (Zofran) 4 mg IVPUSH Q6H PRN PRN Reason: Nausea/Vomiting Oxycodone HCl (Oxycodone) 5 mg PO Q6H PRN PRN Reason: pain, severe Last Admin: 02/13/19 08:58 Dose: 5 mg Sodium Chloride (Saline Flush) 10 ml FLUSH ASDIRECTED PRN PRN Reason: Keep Vein Open Last Admin: 02/13/19 06:34 Dose: 10 ml Thiamine HCl (Vitamin B-1) 100 mg PO BEDTIME [facility] Last Admin: 02/12/19 20:49 Dose: 100 mg Vancomycin HCl (Pharmacy To Dose - Vancomycin) 1 dose .XX ASDIRECTED [facility] Discontinued Medications Acetaminophen (Tylenol) 650 mg PO NOW ONE Stop: 02/10/19 18:10 Last Admin: 02/10/19 18:15 Dose: 650 mg Albuterol/Ipratropium (Duoneb 3.0-0.5 Mg/3 Ml) 3 ml NEB ONETIME ONE Stop: 02/10/19 16:00 Last Admin: 02/10/19 16:22 Dose: 3 ml Fentanyl (Duragesic) 75 mcg TOP Q72H [facility] Sodium Chloride (Normal Saline) 1,000 mls @ 999 mls/hr IV .BOLUS ONE Stop: 02/10/19 16:59 Last Admin: 02/10/19 16:17 Dose: 999 mls/hr Azithromycin 500 mg/ Sodium (Chloride) 250 mls @ 250 mls/hr IV ONETIME ONE Stop: 02/10/19 17:37 Last Admin: 02/10/19 17:02 Dose: 250 mls/hr Ceftriaxone Sodium 2 gm/ (Sodium Chloride) 100 mls @ 200 mls/hr IV ONETIME ONE Stop: 02/10/19 17:05 Last Admin: 02/10/19 18:13 Dose: 200 mls/hr Sodium Chloride (Normal Saline) 1,000 mls @ 999 mls/hr IV .BOLUS ONE Stop: 02/10/19 17:38 Last Admin: 02/10/19 18:14 Dose: 999 mls/hr Potassium Chloride/Sodium Chloride (Normal Saline With 20 Meq Kcl) 1,000 mls @ 125 mls/hr IV ASDIRECTED [facility] Last Admin: 02/12/19 05:31 Dose: 125 mls/hr Vancomycin HCl 1.25 gm/ Sodium (Chloride) 250 mls @ 166.667 mls/hr IV DAILY@ 1800 [facility] Last Admin: 02/11/19 19:28 Dose: 166.667 mls/hr Metoprolol Succinate (Toprol Xl) 100 mg PO DAILY [facility] Miscellaneous Information (Check Patch) 1 ea TRDERM BEDTIME [facility] Miscellaneous Information (Check Patch) 1 ea TRDERM BEDTIME [facility] Potassium Chloride (Klor-Con 10) 40 meq PO ONETIME ONE Stop: 02/10/19 23:01 Last Admin: 02/10/19 23:32 Dose: 40 meq Potassium Chloride (Klor-Con 10) 40 meq PO ONETIME ONE Stop: 02/10/19 20:16 Last Admin: 02/10/19 20:37 Dose: 40 meq Potassium Chloride (Klor-Con 10) 40 meq PO ONETIME ONE Stop: 02/12/19 14:01 Last Admin: 02/12/19 14:26 Dose: 40 meq - Exam Quality Assessment: Supplemental Oxygen General: Alert, Oriented Neck: Supple Lungs: Normal Respiratory Effort, Wheezing Cardiovascular: Regular Rate, Regular Rhythm GI/Abdominal Exam: Normal Bowel Sounds, Soft, Other (Obese) Extremities: Pedal Edema (2+ left, 1+ right) Skin: Warm Neurological: No New Focal Deficit Psy/Mental Status: Alert, Normal Affect, Normal Mood - Problem List & Annotations (1) Cellulitis of lower extremity SNOMED Code(s): 166733505 Code(s): L03.119 - CELLULITIS OF UNSPECIFIED PART OF LIMB Status: Acute Current Visit: Yes Qualifiers: Laterality: left Qualified Code(s): L03.116 - Cellulitis of left lower limb (2) Pneumonia SNOMED Code(s): 096074633 Code(s): J18.9 - PNEUMONIA, UNSPECIFIED ORGANISM Status: Acute Current Visit: Yes Qualifiers: Pneumonia type: due to unspecified organism Laterality: left Lung location: lower lobe of lung Qualified Code(s): J18.1 - Lobar pneumonia, unspecified organism (3) Sepsis SNOMED Code(s): 70087283 Code(s): A41.9 - SEPSIS, UNSPECIFIED ORGANISM Status: Acute Current Visit : Yes Qualifiers: Sepsis type: sepsis due to unspecified organism Sepsis acute organ dysfunction status: with acute organ dysfunction Severe sepsis acute organ dysfunction type: acute renal failure Acute renal failure type: unspecified Severe sepsis shock status: without septic shock Qualified Code(s): A41.9 - Sepsis, unspecified organism; R65.20 - Severe sepsis without septic shock; N17.9 - Acute kidney failure, unspecified (4) Hyponatremia SNOMED Code(s): 24413245 Code(s): E87.1 - HYPO-OSMOLALITY AND HYPONATREMIA Status: Acute Current Visit: Yes - Problem List Review Problem List Initiated/Reviewed/Updated: Yes - My Orders Last 24 Hours: My Active Orders 02/12/19 12:58 Antiembolic Devices [RC] PER UNIT ROUTINE [facility] Hose [Antiembolic Hose] [OM.PC] Routine 02/12/19 14:00 Ciprofloxacin [Ciprofloxacin 0.3% Ophth Soln] 0 ml .XX TID 02/12/19 18:29 Communication Order [RC] DAILY 02/12/19 20:00 Vancomycin 1.25 gm Sodium Chloride 0.9% [Normal Saline] 250 ml IV Q24H 02/13/19 11:00 Venous Doppler Lwr Ext Lt [US] Routine 02/13/19 14:00 Furosemide [Lasix] 20 mg PO BIDDIURETIC 02/14/19 05:15 BASIC METABOLIC PANEL,BMP [CHEM] AM CBC WITH AUTO DIFF [HEME] AM - Plan Plan:: Sepsis Leukocytosis, Elevated lactic acid Tachycardia, acute renal failure resolved Cellulitis of left leg Possible pneumonia Upper respiratory tract infection Blood culture 02/10 : strep dysgalactiae repeat BC today urine culture: contaminant treat empirically with Zosyn and vancomycin cipro for otitis media Acute renal failure, metabolic acidosis, hypokalemia, hyponatremia Baseline creatinine around 1.2 with GFR 50s Likely secondary to dehydration due to nausea, vomiting, diarrhea, low oral intake improved with IVF now start diuretics re: edema, use ольга hose We'll follow electrolytes and replace them as needed leg swelling start diuretics check left leg for dvt moises wrap Chronic pain syndrome Urine tox : + oxycodone - opiates per report fentanyl patch has been filled 2 times in the past few days We'll cont with decreased fentanyl patch History of alcohol intake but he says he was not drinking this week We'll give thiamine, folate, multivitamin Nausea, vomiting Likely secondary to gastritis Will treat symptomatically improved pt/ot eval and treat copd cont duoneb Deep venous thrombosis (DVT) prophylaxis will be with subcutaneous heparin.
[2019-02-13] MEDS ORDERED: Menthol/Methyl Salicylate 85 GM Tube TOP PRN (12:17)
[2019-02-13] MEDS: Furosemide 20 MG Tab PO SCH (14:15)
[2019-02-13] MEDS: Folic Acid 1 MG Tab PO SCH (22:10)
[2019-02-13] MEDS: Thiamine 100 MG Tab PO SCH (22:10)
[2019-02-13] MEDS: fentaNYL 50 MCG/HR Transdermal Patch TRDERM SCH ×2 (22:26→22:42)
[2019-02-14] MEDS: Sodium Chloride 0.9% 10 ML Syringe FLUSH PRN ×6 (00:06→17:56)
[2019-02-14] MEDS: Piperacillin/Tazobactam 2.25 GM in Sodium Chloride 0.9% 50 ML IV SCH ×5 (00:07→23:57)
[2019-02-14] MEDS: Albuterol/Ipratropium 3.0-0.5 MG/3 ML Neb Soln NEB SCH ×4 (00:11→17:56)
[2019-02-14] MEDS: oxyCODONE 5 MG Tab PO PRN ×4 (02:55→23:57)
[2019-02-14] MEDS: Heparin Sodium 5,000 Units/ML Vial SUBCUT SCH ×3 (06:02→21:32)
[2019-02-14 07:47] LABS: ANION GAP 12.8
[2019-02-14] MEDS: Furosemide 20 MG Tab PO SCH (09:06)
[2019-02-14] MEDS: Metoprolol Succinate 50 MG Tab.ER PO SCH (09:06)
[2019-02-14] MEDS: Ciprofloxacin 0.3% Ophth Soln 5 ML Bottle SCH ×3 (09:07→21:32)
--- NOTE | 2019-02-14 12:03 | PCM.PN ---
- General Info Date of Service: 02/14/19 Admission Dx/Problem (Free Text): Admission Diagnosis/Problem Admission Diagnosis/Problem Sepsis Subjective Update: Complains of left thigh pain, worse when touched. NO chest pain, no SOB Being encouraged to increase mobility - Review of Systems General: Reports: No Symptoms. Denies: Fever HEENT: Reports: No Symptoms Pulmonary: Reports: No Symptoms Cardiovascular: Reports: No Symptoms Gastrointestinal: Reports: No Symptoms Genitourinary: Reports: No Symptoms Musculoskeletal: Reports: Other (left thigh pain) Skin: Reports: No Symptoms Neurological: Reports: No Symptoms - Patient Data Vitals - Most Recent: Last Vital Signs Temp 36.6 C 02/14/19 08:28 Pulse 71 02/14/19 09:06 Resp 20 02/14/19 08:28 BP 144/76 H 02/14/19 09:06 Pulse Ox 97 02/14/19 08:28 Weight - Most Recent: 116.074 kg I&O - Last 24 Hours: Intake & Output 02/13/19 02/14/19 02/14/19 22:59 06:59 14:59 Intake Total 240 361 540 Output Total 600 Balance 240 361 -60 Lab Results Last 24 Hours: Laboratory Results - last 24 hr 02/13/19 02/14/19 02/14/19 Range/Units 19:45 06:40 06:40 WBC 10.1 H (5.0-10.0) 10^3/uL RBC 3.69 L (4.6-6.2) 10^6/uL Hgb 11.8 L (14.0-18.0) g/dL Hct 33.6 L (40.0-54.0) % MCV 91.1 (80-100) fL MCH 32.0 (27.0-34.0) pg MCHC 35.1 H (33.0-35.0) g/dL Plt Count 285 (150-450) 10^3/uL Neut % (Auto) 80.9 H (42.2-75.2) % Lymph % (Auto) 10.2 L (20.5-50.1) % [place] % (Auto) 6.1 (2-8) % Eos % (Auto) 2.7 (1.0-3.0) % Baso % (Auto) 0.1 (0.0-1.0) % Add Manual Diff Sodium 126 L (135-145) mmol/L Potassium 3.8 (3.6-5.0) mmol/L Chloride 100 L (101-111) mmol/L Carbon Dioxide 17.0 L (21.0-31.0) mmol/L Anion Gap 12.8 BUN 28 H (7-18) mg/dL Creatinine 1.6 H (0.6-1.3) mg/dL Est Cr Clr Drug Dosing 50.47 mL/min Estimated GFR (MDRD) 45 Glucose 108 H (74-105) mg/dL Calcium 7.4 L (8.4-10.2) mg/dl Ur Random Creatinine mg/dL Ur Random Sodium (40-220) mmol/L Vancomycin Trough 16.2 H (10-15) ug/ml 02/14/19 Range/Units 11:24 WBC (5.0-10.0) 10^3/uL RBC (4.6-6.2) 10^6/uL Hgb (14.0-18.0) g/dL Hct (40.0-54.0) % MCV (80-100) fL MCH (27.0-34.0) pg MCHC (33.0-35.0) g/dL Plt Count (150-450) 10^3/uL Neut % (Auto) (42.2-75.2) % Lymph % (Auto) (20.5-50.1) % [place] % (Auto) (2-8) % Eos % (Auto) (1.0-3.0) % Baso % (Auto) (0.0-1.0) % Add Manual Diff Sodium (135-145) mmol/L Potassium (3.6-5.0) mmol/L Chloride (101-111) mmol/L Carbon Dioxide (21.0-31.0) mmol/L Anion Gap BUN (7-18) mg/dL Creatinine (0.6-1.3) mg/dL Est Cr Clr Drug Dosing mL/min Estimated GFR (MDRD) Glucose (74-105) mg/dL Calcium (8.4-10.2) mg/dl Ur Random Creatinine 83 mg/dL Ur Random Sodium 28 L (40-220) mmol/L Vancomycin Trough (10-15) ug/ml Teto Results Last 24 Hours: Microbiology 02/10/19 22:45 Urine Culture - Final Urine, Clean Catch 02/10/19 15:41 Aerobic Blood Culture - Final Blood Streptococcus Dysgalactiae Anaerobic Blood Culture - Final Med Orders - Current: Current Medications Acetaminophen (Tylenol) 650 mg PO Q4H PRN PRN Reason: Fever Last Admin: 02/11/19 16:45 Dose: 650 mg Albuterol/Ipratropium (Duoneb 3.0-0.5 Mg/3 Ml) 3 ml NEB Q2H PRN PRN Reason: sob Last Admin: 02/12/19 20:38 Dose: 3 ml Albuterol/Ipratropium (Duoneb 3.0-0.5 Mg/3 Ml) 3 ml NEB Q6HRRT [facility] Last Admin: 02/14/19 07:18 Dose: 3 ml Ciprofloxacin (Ciprofloxacin 0.3% Oph Soln) 0 ml .XX TID [facility] Last Admin: 02/14/19 09:07 Dose: 4 drop Fentanyl (Duragesic) 50 mcg TRDERM Q72H [facility] Last Admin: 02/13/19 22:42 Dose: 50 mcg Folic Acid (Folic Acid) 1 mg PO BEDTIME [facility] Last Admin: 02/13/19 22:10 Dose: 1 mg Heparin Sodium (Porcine) (Heparin Sodium) 5,000 units SUBCUT Q8HR [facility] Last Admin: 02/14/19 06:02 Dose: 5,000 units Piperacillin Sod/Tazobactam (Sod 2.25 gm/ Sodium Chloride) 50 mls @ 100 mls/hr IV Q6HR [facility] Last Infusion: 02/14/19 06:30 Dose: Infused Methyl Salicylate (Icy Hot Cream) 1 gm TOP BID PRN PRN Reason: Pain (mild 1-3) Metoprolol Succinate (Toprol Xl) 100 mg PO DAILY [facility] Last Admin: 02/14/19 09:06 Dose: 100 mg Miscellaneous Information (Check Patch) 1 ea TRDERM BEDTIME [facility] Last Admin: 02/13/19 22:39 Dose: Not Given Multivitamins (Thera) 1 each PO BEDTIME [facility] Last Admin: 02/13/19 22:10 Dose: 1 each Ondansetron HCl (Zofran Odt) 4 mg PO Q6H PRN PRN Reason: nausea, able to take PO Last Admin: 02/12/19 08:35 Dose: 4 mg Ondansetron HCl (Zofran) 4 mg IVPUSH Q6H PRN PRN Reason: Nausea/Vomiting Oxycodone HCl (Oxycodone) 5 mg PO Q6H PRN PRN Reason: pain, severe Last Admin: 02/14/19 11:31 Dose: 5 mg Sodium Chloride (Saline Flush) 10 ml FLUSH ASDIRECTED PRN PRN Reason: Keep Vein Open Last Admin: 02/14/19 06:32 Dose: 10 ml Thiamine HCl (Vitamin B-1) 100 mg PO BEDTIME [facility] Last Admin: 02/13/19 22:10 Dose: 100 mg Discontinued Medications Acetaminophen (Tylenol) 650 mg PO NOW ONE Stop: 02/10/19 18:10 Last Admin: 02/10/19 18:15 Dose: 650 mg Albuterol/Ipratropium (Duoneb 3.0-0.5 Mg/3 Ml) 3 ml NEB ONETIME ONE Stop: 02/10/19 16:00 Last Admin: 02/10/19 16:22 Dose: 3 ml Fentanyl (Duragesic) 75 mcg TOP Q72H [facility] Furosemide (Lasix) 20 mg PO BIDDIURETIC [facility] Last Admin: 02/14/19 09:06 Dose: Not Given Sodium Chloride (Normal Saline) 1,000 mls @ 999 mls/hr IV .BOLUS ONE Stop: 02/10/19 16:59 Last Admin: 02/10/19 16:17 Dose: 999 mls/hr Azithromycin 500 mg/ Sodium (Chloride) 250 mls @ 250 mls/hr IV ONETIME ONE Stop: 02/10/19 17:37 Last Admin: 02/10/19 17:02 Dose: 250 mls/hr Ceftriaxone Sodium 2 gm/ (Sodium Chloride) 100 mls @ 200 mls/hr IV ONETIME ONE Stop: 02/10/19 17:05 Last Admin: 02/10/19 18:13 Dose: 200 mls/hr Sodium Chloride (Normal Saline) 1,000 mls @ 999 mls/hr IV .BOLUS ONE Stop: 02/10/19 17:38 Last Admin: 02/10/19 18:14 Dose: 999 mls/hr Potassium Chloride/Sodium Chloride (Normal Saline With 20 Meq Kcl) 1,000 mls @ 125 mls/hr IV ASDIRECTED [facility] Last Admin: 02/12/19 05:31 Dose: 125 mls/hr Vancomycin HCl 1.25 gm/ Sodium (Chloride) 250 mls @ 166.667 mls/hr IV DAILY@ 1800 [facility] Last Admin: 02/11/19 19:28 Dose: 166.667 mls/hr Vancomycin HCl 1.25 gm/ Sodium (Chloride) 250 mls @ 166.667 mls/hr IV Q24H [facility] Last Admin: 02/13/19 22:53 Dose: Not Given Vancomycin HCl 1 gm/ Sodium (Chloride) 250 mls @ 166.667 mls/hr IV Q24H [facility] Last Admin: 02/13/19 22:03 Dose: 166.667 mls/hr Metoprolol Succinate (Toprol Xl) 100 mg PO DAILY [facility] Miscellaneous Information (Check Patch) 1 ea TRDERM BEDTIME [facility] Miscellaneous Information (Check Patch) 1 ea TRDERM BEDTIME [facility] Multivitamins (Thera) 1 each PO DAILY [facility] Last Admin: 02/13/19 09:00 Dose: 1 each Potassium Chloride (Klor-Con 10) 40 meq PO ONETIME ONE Stop: 02/10/19 23:01 Last Admin: 02/10/19 23:32 Dose: 40 meq Potassium Chloride (Klor-Con 10) 40 meq PO ONETIME ONE Stop: 02/10/19 20:16 Last Admin: 02/10/19 20:37 Dose: 40 meq Potassium Chloride (Klor-Con 10) 40 meq PO ONETIME ONE Stop: 02/12/19 14:01 Last Admin: 02/12/19 14:26 Dose: 40 meq Vancomycin HCl (Pharmacy To Dose - Vancomycin) 1 dose .XX ASDIRECTED [facility] - Exam General: Alert, Oriented HEENT: Pupils Equal Neck: Supple Lungs: Clear to Auscultation Cardiovascular: Regular Rate, Regular Rhythm GI/Abdominal Exam: Normal Bowel Sounds, Soft, Non-Tender, No Organomegaly Extremities: Other (left thigh tenderness, swelling, boggy.) Skin: Other (left wrist has AVF fistula) - Problem List Review Problem List Initiated/Reviewed/Updated: Yes - My Orders Last 24 Hours: My Active Orders 02/14/19 08:35 Echo Comp wo Cont [US] Routine 02/14/19 10:17 Femur wo Cont Lt [CT] Routine 02/14/19 11:24 OSMOLALITY - URINE Routine 02/14/19 12:00 SODIUM,NA [CHEM] Q6H 02/14/19 18:00 SODIUM,NA [CHEM] Q6H 02/15/19 00:00 SODIUM,NA [CHEM] Q6H 02/15/19 05:11 BASIC METABOLIC PANEL,BMP [CHEM] AM CBC W/O DIFF,HEMOGRAM [HEME] AM 02/15/19 06:00 SODIUM,NA [CHEM] Q6H 02/15/19 12:00 SODIUM,NA [CHEM] Q6H 02/15/19 18:00 SODIUM,NA [CHEM] Q6H 02/16/19 00:00 SODIUM,NA [CHEM] Q6H 02/16/19 05:11 BASIC METABOLIC PANEL,BMP [CHEM] AM CBC W/O DIFF,HEMOGRAM [HEME] AM 02/17/19 05:11 BASIC METABOLIC PANEL,BMP [CHEM] AM CBC W/O DIFF,HEMOGRAM [HEME] AM - Plan Plan:: Sepsis 2/2 cellulitis Cellulitis of left leg continue IGNACIA [facility] vanc Blood cx positive for Strept sp Check 2D echo to r/o endocarditis f/u repeat blood cx AZIZA, improving monitor CR avoid nephrotoxic agents Hyponatremia Na 126 hold lasix check urine electrolytes monitor sodium q6 hrs Left thigh pain check CT Left LE for abscess US: negative for DVT Chronic pain syndrome Urine tox : + oxycodone - opiates per report fentanyl patch has been filled 2 times in the past few days We'll cont with decreased fentanyl patch History of alcohol intake but he says he was not drinking this week We'll give thiamine, folate, multivitamin pt/ot eval and treat copd cont duoneb Deep venous thrombosis (DVT) prophylaxis will be with subcutaneous heparin.
[2019-02-14] MEDS: Acetaminophen 325 MG Tab PO PRN (16:19)
[2019-02-14] MEDS: Multivitamins,Therapeutic Tab PO SCH (21:32)
[2019-02-14] MEDS: Folic Acid 1 MG Tab PO SCH (21:32)
[2019-02-14] MEDS: Thiamine 100 MG Tab PO SCH (21:33)
[2019-02-14] MEDS: Ondansetron 4 MG/2 ML SDV IVPUSH PRN (21:33)
[2019-02-14] MEDS: Albuterol/Ipratropium 3.0-0.5 MG/3 ML Neb Soln NEB PRN (23:56)
[2019-02-15] MEDS: Albuterol/Ipratropium 3.0-0.5 MG/3 ML Neb Soln NEB SCH ×4 (00:04→17:56)
[2019-02-15] MEDS: Piperacillin/Tazobactam 2.25 GM in Sodium Chloride 0.9% 50 ML IV SCH ×4 (05:47→23:59)
[2019-02-15] MEDS: Heparin Sodium 5,000 Units/ML Vial SUBCUT SCH ×3 (05:48→21:43)
[2019-02-15] MEDS: oxyCODONE 5 MG Tab PO PRN ×3 (05:49→18:13)
[2019-02-15 07:21] LABS: ANION GAP 12.7
[2019-02-15] MEDS: Metoprolol Succinate 50 MG Tab.ER PO SCH (09:19)
[2019-02-15] MEDS: Ciprofloxacin 0.3% Ophth Soln 5 ML Bottle SCH ×3 (09:21→21:51)
[2019-02-15] MEDS ORDERED: Benzocaine/Cetylpyridinium/Menthol Lozenge MUCMEM PRN (09:42)
[2019-02-15] MEDS ORDERED: Aluminum Hydroxide/Magnesium Hydroxide/Simethicone Susp 30 ML Cup PO PRN (09:43)
--- NOTE | 2019-02-15 10:41 | PCM.PN ---
- General Info Date of Service: 02/15/19 Admission Dx/Problem (Free Text): Admission Diagnosis/Problem Admission Diagnosis/Problem Sepsis Subjective Update: Complains of left thigh pain improved CT of left thigh, no abscess Complains of heartburn and sore throat this morning. Will treat both symptomatically with lozenges and maalox. No chest pain, no SOB Being encouraged to increase mobility - Review of Systems General: Reports: No Symptoms HEENT: Reports: No Symptoms Pulmonary: Reports: No Symptoms Cardiovascular: Reports: No Symptoms Gastrointestinal: Reports: No Symptoms Genitourinary: Reports: No Symptoms Musculoskeletal: Reports: Other (left thigh pain improved) Skin: Reports: No Symptoms Neurological: Reports: No Symptoms - Patient Data Vitals - Most Recent: Last Vital Signs Temp 36.8 C 02/15/19 08:00 Pulse 77 02/15/19 09:19 Resp 17 02/15/19 08:00 BP 146/77 H 02/15/19 09:19 Pulse Ox 95 02/15/19 08:00 Weight - Most Recent: 115.666 kg I&O - Last 24 Hours: Intake & Output 02/14/19 02/15/19 02/15/19 22:59 06:59 14:59 Intake Total 850 100 Output Total 1050 Balance 850 -950 Lab Results Last 24 Hours: Laboratory Results - last 24 hr 02/14/19 02/14/19 02/14/19 Range/Units 11:24 11:24 12:05 WBC (5.0-10.0) 10^3/uL RBC (4.6-6.2) 10^6/uL Hgb (14.0-18.0) g/dL Hct (40.0-54.0) % MCV (80-100) fL MCH (27.0-34.0) pg MCHC (33.0-35.0) g/dL Plt Count (150-450) 10^3/uL Sodium 126 L (135-145) mmol/L Potassium (3.6-5.0) mmol/L Chloride (101-111) mmol/L Carbon Dioxide (21.0-31.0) mmol/L Anion Gap BUN (7-18) mg/dL Creatinine (0.6-1.3) mg/dL Est Cr Clr Drug Dosing mL/min Estimated GFR (MDRD) Glucose (74-105) mg/dL Calcium (8.4-10.2) mg/dl Urine Osmolality 321 (300-900) mosm/kg Ur Random Creatinine 83 mg/dL Ur Random Sodium 28 L (40-220) mmol/L 02/14/19 02/15/19 02/15/19 Range/Units 18:00 00:25 06:30 WBC 9.2 (5.0-10.0) 10^3/uL RBC 3.68 L (4.6-6.2) 10^6/uL Hgb 11.9 L (14.0-18.0) g/dL Hct 33.9 L (40.0-54.0) % MCV 92.1 (80-100) fL MCH 32.3 (27.0-34.0) pg MCHC 35.1 H (33.0-35.0) g/dL Plt Count 292 (150-450) 10^3/uL Sodium 126 L 128 L (135-145) mmol/L Potassium (3.6-5.0) mmol/L Chloride (101-111) mmol/L Carbon Dioxide (21.0-31.0) mmol/L Anion Gap BUN (7-18) mg/dL Creatinine (0.6-1.3) mg/dL Est Cr Clr Drug Dosing mL/min Estimated GFR (MDRD) Glucose (74-105) mg/dL Calcium (8.4-10.2) mg/dl Urine Osmolality (300-900) mosm/kg Ur Random Creatinine mg/dL Ur Random Sodium (40-220) mmol/L 02/15/19 Range/Units 06:30 WBC (5.0-10.0) 10^3/uL RBC (4.6-6.2) 10^6/uL Hgb (14.0-18.0) g/dL Hct (40.0-54.0) % MCV (80-100) fL MCH (27.0-34.0) pg MCHC (33.0-35.0) g/dL Plt Count (150-450) 10^3/uL Sodium 127 L (135-145) mmol/L Potassium 4.7 (3.6-5.0) mmol/L Chloride 101 (101-111) mmol/L Carbon Dioxide 18.0 L (21.0-31.0) mmol/L Anion Gap 12.7 BUN 27 H (7-18) mg/dL Creatinine 1.6 H (0.6-1.3) mg/dL Est Cr Clr Drug Dosing 50.47 mL/min Estimated GFR (MDRD) 45 Glucose 87 (74-105) mg/dL Calcium 7.4 L (8.4-10.2) mg/dl Urine Osmolality (300-900) mosm/kg Ur Random Creatinine mg/dL Ur Random Sodium (40-220) mmol/L Teto Results Last 24 Hours: Microbiology 02/13/19 14:30 Aerobic Blood Culture - Preliminary Blood - Venous - Lab Draw NO GROWTH AFTER 1 DAY Anaerobic Blood Culture - Preliminary NO GROWTH AFTER 1 DAY 02/13/19 12:04 Aerobic Blood Culture - Preliminary Blood - Venous NO GROWTH AFTER 1 DAY Anaerobic Blood Culture - Preliminary NO GROWTH AFTER 1 DAY Med Orders - Current: Current Medications Acetaminophen (Tylenol) 650 mg PO Q4H PRN PRN Reason: Fever Last Admin: 02/14/19 16:19 Dose: 650 mg Al Hydroxide/Mg Hydroxide (Mag-Al Plus) 30 ml PO Q4H PRN PRN Reason: Heartburn Albuterol/Ipratropium (Duoneb 3.0-0.5 Mg/3 Ml) 3 ml NEB Q2H PRN PRN Reason: sob Last Admin: 02/12/19 20:38 Dose: 3 ml Albuterol/Ipratropium (Duoneb 3.0-0.5 Mg/3 Ml) 3 ml NEB Q6HRRT [facility] Last Admin: 02/15/19 07:18 Dose: 3 ml Benzocaine/Menthol (Cepacol Sore Throat) 1 lozenge MUCMEM Q2H PRN PRN Reason: Sore Throat Ciprofloxacin (Ciprofloxacin 0.3% [facility]) 0 ml .XX TID [facility] Last Admin: 02/15/19 09:21 Dose: 4 drop Fentanyl (Duragesic) 50 mcg TRDERM Q72H [facility] Last Admin: 02/13/19 22:42 Dose: 50 mcg Folic Acid (Folic Acid) 1 mg PO BEDTIME [facility] Last Admin: 02/14/19 21:32 Dose: Not Given Heparin Sodium (Porcine) (Heparin Sodium) 5,000 units SUBCUT Q8HR [facility] Last Admin: 02/15/19 05:48 Dose: 5,000 units Piperacillin Sod/Tazobactam (Sod 2.25 gm/ Sodium Chloride) 50 mls @ 100 mls/hr IV Q6HR [facility] Last Infusion: 02/15/19 06:17 Dose: Infused Methyl Salicylate (Icy Hot Cream) 1 gm TOP BID PRN PRN Reason: Pain (mild 1-3) Metoprolol Succinate (Toprol Xl) 100 mg PO DAILY [facility] Last Admin: 02/15/19 09:19 Dose: 100 mg Miscellaneous Information (Check Patch) 1 ea TRDERM BEDTIME [facility] Last Admin: 02/14/19 21:32 Dose: Not Given Multivitamins (Thera) 1 each PO BEDTIME [facility] Last Admin: 02/14/19 21:32 Dose: Not Given Ondansetron HCl (Zofran Odt) 4 mg PO Q6H PRN PRN Reason: nausea, able to take PO Last Admin: 02/12/19 08:35 Dose: 4 mg Ondansetron HCl (Zofran) 4 mg IVPUSH Q6H PRN PRN Reason: Nausea/Vomiting Last Admin: 02/14/19 21:33 Dose: 4 mg Oxycodone HCl (Oxycodone) 5 mg PO Q6H PRN PRN Reason: pain, severe Last Admin: 02/15/19 05:49 Dose: 5 mg Sodium Chloride (Saline Flush) 10 ml FLUSH ASDIRECTED PRN PRN Reason: Keep Vein Open Last Admin: 02/14/19 17:56 Dose: 10 ml Thiamine HCl (Vitamin B-1) 100 mg PO BEDTIME [facility] Last Admin: 02/14/19 21:33 Dose: Not Given Discontinued Medications Acetaminophen (Tylenol) 650 mg PO NOW ONE Stop: 02/10/19 18:10 Last Admin: 02/10/19 18:15 Dose: 650 mg Albuterol/Ipratropium (Duoneb 3.0-0.5 Mg/3 Ml) 3 ml NEB ONETIME ONE Stop: 02/10/19 16:00 Last Admin: 02/10/19 16:22 Dose: 3 ml Fentanyl (Duragesic) 75 mcg TOP Q72H [facility] Furosemide (Lasix) 20 mg PO BIDDIURETIC [facility] Last Admin: 02/14/19 09:06 Dose: Not Given Sodium Chloride (Normal Saline) 1,000 mls @ 999 mls/hr IV .BOLUS ONE Stop: 02/10/19 16:59 Last Admin: 02/10/19 16:17 Dose: 999 mls/hr Azithromycin 500 mg/ Sodium (Chloride) 250 mls @ 250 mls/hr IV ONETIME ONE Stop: 02/10/19 17:37 Last Admin: 02/10/19 17:02 Dose: 250 mls/hr Ceftriaxone Sodium 2 gm/ (Sodium Chloride) 100 mls @ 200 mls/hr IV ONETIME ONE Stop: 02/10/19 17:05 Last Admin: 02/10/19 18:13 Dose: 200 mls/hr Sodium Chloride (Normal Saline) 1,000 mls @ 999 mls/hr IV .BOLUS ONE Stop: 02/10/19 17:38 Last Admin: 02/10/19 18:14 Dose: 999 mls/hr Potassium Chloride/Sodium Chloride (Normal Saline With 20 Meq Kcl) 1,000 mls @ 125 mls/hr IV ASDIRECTED [facility] Last Admin: 02/12/19 05:31 Dose: 125 mls/hr Vancomycin HCl 1.25 gm/ Sodium (Chloride) 250 mls @ 166.667 mls/hr IV DAILY@ 1800 [facility] Last Admin: 02/11/19 19:28 Dose: 166.667 mls/hr Vancomycin HCl 1.25 gm/ Sodium (Chloride) 250 mls @ 166.667 mls/hr IV Q24H [facility] Last Admin: 02/13/19 22:53 Dose: Not Given Vancomycin HCl 1 gm/ Sodium (Chloride) 250 mls @ 166.667 mls/hr IV Q24H [facility] Last Admin: 02/13/19 22:03 Dose: 166.667 mls/hr Metoprolol Succinate (Toprol Xl) 100 mg PO DAILY [facility] Miscellaneous Information (Check Patch) 1 ea TRDERM BEDTIME [facility] Miscellaneous Information (Check Patch) 1 ea TRDERM BEDTIME [facility] Multivitamins (Thera) 1 each PO DAILY [facility] Last Admin: 02/13/19 09:00 Dose: 1 each Potassium Chloride (Klor-Con 10) 40 meq PO ONETIME ONE Stop: 02/10/19 23:01 Last Admin: 02/10/19 23:32 Dose: 40 meq Potassium Chloride (Klor-Con 10) 40 meq PO ONETIME ONE Stop: 02/10/19 20:16 Last Admin: 02/10/19 20:37 Dose: 40 meq Potassium Chloride (Klor-Con 10) 40 meq PO ONETIME ONE Stop: 02/12/19 14:01 Last Admin: 02/12/19 14:26 Dose: 40 meq Vancomycin HCl (Pharmacy To Dose - Vancomycin) 1 dose .XX ASDIRECTED [facility] - Exam General: Alert, Oriented HEENT: Pupils Equal, Pupils Reactive Neck: Supple Lungs: Clear to Auscultation, Normal Respiratory Effort Cardiovascular: Regular Rate, Regular Rhythm, No Murmurs GI/Abdominal Exam: Normal Bowel Sounds, Soft, Non-Tender, No Organomegaly Extremities: Other (bilateral pedal edema. compression stocking on. left wrist AVF with thrill) - Problem List Review Problem List Initiated/Reviewed/Updated: Yes - My Orders Last 24 Hours: My Active Orders 02/15/19 09:42 Benzocaine/Cetylpyrd/Menthol [Cepacol Sore Throat] 1 lozenge MUCMEM Q2H PRN 02/15/19 09:43 Alum Hydrox/Mag Hydrox/Simeth [Mag-Al Plus] 30 ml PO Q4H PRN 02/15/19 12:00 SODIUM,NA [CHEM] Q6H 02/15/19 18:00 SODIUM,NA [CHEM] Q6H 02/15/19 Lunch Fluid Restriction [DIET] 02/16/19 00:00 SODIUM,NA [CHEM] Q6H 02/16/19 05:11 BASIC METABOLIC PANEL,BMP [CHEM] AM CBC W/O DIFF,HEMOGRAM [HEME] AM 02/17/19 05:11 BASIC METABOLIC PANEL,BMP [CHEM] AM CBC W/O DIFF,HEMOGRAM [HEME] AM - Plan Plan:: Sepsis 2/2 cellulitis Cellulitis of left leg continue IV Zosyn, DC vanc Blood cx positive for Strept sp Check 2D echo to r/o endocarditis: report awaited f/u repeat blood cx: negative Day 2 Will plan 2 wks of IV antibiotics total. Will switch to 2g daily of ceftriaxone on DC. AZIZA, improving monitor CR avoid nephrotoxic agents Hyponatremia: Urine lytes suggest SIADH Na 126 hold lasix fluid restrict to 1500 ml/day. monitor sodium q6 hrs Left thigh pain check CT Left LE for abscess: negative US: negative for DVT Chronic pain syndrome Urine tox : + oxycodone - opiates per report fentanyl patch has been filled 2 times in the past few days We'll cont with decreased fentanyl patch History of alcohol intake but he says he was not drinking this week We'll give thiamine, folate, multivitamin pt/ot eval and treat copd cont duoneb Deep venous thrombosis (DVT) prophylaxis will be with subcutaneous heparin.
[2019-02-15] MEDS: Sodium Chloride 0.9% 10 ML Syringe FLUSH PRN ×3 (12:29→23:55)
[2019-02-15] MEDS: Acetaminophen 325 MG Tab PO PRN (18:13)
[2019-02-15] MEDS: Thiamine 100 MG Tab PO SCH (21:42)
[2019-02-15] MEDS: Folic Acid 1 MG Tab PO SCH (21:42)
[2019-02-15] MEDS: Multivitamins,Therapeutic Tab PO SCH (21:42)
[2019-02-16] MEDS: Sodium Chloride 0.9% 10 ML Syringe FLUSH PRN ×3 (00:39→18:22)
[2019-02-16] MEDS: Albuterol/Ipratropium 3.0-0.5 MG/3 ML Neb Soln NEB SCH ×4 (00:40→18:32)
[2019-02-16] MEDS: oxyCODONE 5 MG Tab PO PRN ×4 (01:04→20:58)
[2019-02-16] MEDS: Acetaminophen 325 MG Tab PO PRN ×3 (01:05→15:04)
[2019-02-16] MEDS: Piperacillin/Tazobactam 2.25 GM in Sodium Chloride 0.9% 50 ML IV SCH ×3 (05:36→18:16)
[2019-02-16] MEDS: Heparin Sodium 5,000 Units/ML Vial SUBCUT SCH ×3 (05:37→21:01)
[2019-02-16 07:13] LABS: ANION GAP 11.2
[2019-02-16] MEDS: Metoprolol Succinate 50 MG Tab.ER PO SCH (09:21)
[2019-02-16] MEDS: Ciprofloxacin 0.3% Ophth Soln 5 ML Bottle SCH ×3 (09:25→20:58)
--- NOTE | 2019-02-16 13:33 | PCM.PN ---
- General Info Date of Service: 02/16/19 Admission Dx/Problem (Free Text): Admission Diagnosis/Problem Admission Diagnosis/Problem Sepsis Subjective Update: No new complaints this morning Still has bilateral leg swelling No chest pain, no SOB Being encouraged to increase mobility - Review of Systems General: Reports: No Symptoms HEENT: Reports: No Symptoms Pulmonary: Reports: No Symptoms Cardiovascular: Reports: No Symptoms Gastrointestinal: Reports: No Symptoms Genitourinary: Reports: No Symptoms Musculoskeletal: Reports: Other (bilateral leg swelling) Skin: Reports: No Symptoms Neurological: Reports: No Symptoms - Patient Data Vitals - Most Recent: Last Vital Signs Temp 36.3 C 02/16/19 08:00 Pulse 73 02/16/19 09:21 Resp 20 02/16/19 08:00 BP 134/68 02/16/19 09:21 Pulse Ox 100 02/16/19 08:00 Weight - Most Recent: 116.8 kg I&O - Last 24 Hours: Intake & Output 02/15/19 02/16/19 02/16/19 22:59 06:59 14:59 Intake Total 500 143 270 Output Total 500 400 900 Balance 0 -257 -630 Lab Results Last 24 Hours: Laboratory Results - last 24 hr 02/15/19 02/16/19 02/16/19 Range/Units 18:10 00:18 06:36 WBC 7.8 (5.0-10.0) 10^3/uL RBC 3.59 L (4.6-6.2) 10^6/uL Hgb 11.5 L (14.0-18.0) g/dL Hct 33.2 L (40.0-54.0) % MCV 92.5 (80-100) fL MCH 32.0 (27.0-34.0) pg MCHC 34.6 (33.0-35.0) g/dL Plt Count 350 (150-450) 10^3/uL Sodium 126 L 127 L (135-145) mmol/L Potassium (3.6-5.0) mmol/L Chloride (101-111) mmol/L Carbon Dioxide (21.0-31.0) mmol/L Anion Gap BUN (7-18) mg/dL Creatinine (0.6-1.3) mg/dL Est Cr Clr Drug Dosing mL/min Estimated GFR (MDRD) Glucose (74-105) mg/dL Calcium (8.4-10.2) mg/dl 02/16/19 Range/Units 06:36 WBC (5.0-10.0) 10^3/uL RBC (4.6-6.2) 10^6/uL Hgb (14.0-18.0) g/dL Hct (40.0-54.0) % MCV (80-100) fL MCH (27.0-34.0) pg MCHC (33.0-35.0) g/dL Plt Count (150-450) 10^3/uL Sodium 130 L (135-145) mmol/L Potassium 4.2 (3.6-5.0) mmol/L Chloride 104 (101-111) mmol/L Carbon Dioxide 19.0 L (21.0-31.0) mmol/L Anion Gap 11.2 BUN 24 H (7-18) mg/dL Creatinine 1.5 H (0.6-1.3) mg/dL Est Cr Clr Drug Dosing 53.83 mL/min Estimated GFR (MDRD) 49 Glucose 89 (74-105) mg/dL Calcium 7.6 L (8.4-10.2) mg/dl Teto Results Last 24 Hours: Microbiology 02/13/19 12:04 Aerobic Blood Culture - Preliminary Blood - Venous NO GROWTH AFTER 3 DAYS Anaerobic Blood Culture - Preliminary NO GROWTH AFTER 3 DAYS 02/13/19 14:30 Aerobic Blood Culture - Preliminary Blood - Venous - Lab Draw NO GROWTH AFTER 2 DAYS Anaerobic Blood Culture - Preliminary NO GROWTH AFTER 2 DAYS Med Orders - Current: Current Medications Acetaminophen (Tylenol) 650 mg PO Q4H PRN PRN Reason: Fever Last Admin: 02/16/19 11:41 Dose: 650 mg Al Hydroxide/Mg Hydroxide (Mag-Al Plus) 30 ml PO Q4H PRN PRN Reason: Heartburn Albuterol/Ipratropium (Duoneb 3.0-0.5 Mg/3 Ml) 3 ml NEB Q2H PRN PRN Reason: sob Last Admin: 02/12/19 20:38 Dose: 3 ml Albuterol/Ipratropium (Duoneb 3.0-0.5 Mg/3 Ml) 3 ml NEB Q6HRRT [facility] Last Admin: 02/16/19 07:50 Dose: 3 ml Benzocaine/Menthol (Cepacol Sore Throat) 1 lozenge MUCMEM Q2H PRN PRN Reason: Sore Throat Ciprofloxacin (Ciprofloxacin 0.3% Oph Soln) 0 ml .XX TID [facility] Last Admin: 02/16/19 09:25 Dose: 4 drop Fentanyl (Duragesic) 50 mcg TRDERM Q72H [facility] Last Admin: 02/13/19 22:42 Dose: 50 mcg Folic Acid (Folic Acid) 1 mg PO BEDTIME [facility] Last Admin: 02/15/19 21:42 Dose: 1 mg Heparin Sodium (Porcine) (Heparin Sodium) 5,000 units SUBCUT Q8HR [facility] Last Admin: 02/16/19 05:37 Dose: 5,000 units Piperacillin Sod/Tazobactam (Sod 2.25 gm/ Sodium Chloride) 50 mls @ 100 mls/hr IV Q6HR [facility] Last Admin: 02/16/19 12:45 Dose: 100 mls/hr Methyl Salicylate (Icy Hot Cream) 1 gm TOP BID PRN PRN Reason: Pain (mild 1-3) Metoprolol Succinate (Toprol Xl) 100 mg PO DAILY [facility] Last Admin: 02/16/19 09:21 Dose: 100 mg Miscellaneous Information (Check Patch) 1 ea TRDERM BEDTIME [facility] Last Admin: 02/15/19 21:41 Dose: Not Given Multivitamins (Thera) 1 each PO BEDTIME [facility] Last Admin: 02/15/19 21:42 Dose: 1 each Ondansetron HCl (Zofran Odt) 4 mg PO Q6H PRN PRN Reason: nausea, able to take PO Last Admin: 02/12/19 08:35 Dose: 4 mg Ondansetron HCl (Zofran) 4 mg IVPUSH Q6H PRN PRN Reason: Nausea/Vomiting Last Admin: 02/14/19 21:33 Dose: 4 mg Oxycodone HCl (Oxycodone) 5 mg PO Q6H PRN PRN Reason: pain, severe Last Admin: 02/16/19 09:21 Dose: 5 mg Sodium Chloride (Saline Flush) 10 ml FLUSH ASDIRECTED PRN PRN Reason: Keep Vein Open Last Admin: 02/16/19 05:33 Dose: 10 ml Thiamine HCl (Vitamin B-1) 100 mg PO BEDTIME [facility] Last Admin: 02/15/19 21:42 Dose: 100 mg Discontinued Medications Acetaminophen (Tylenol) 650 mg PO NOW ONE Stop: 02/10/19 18:10 Last Admin: 02/10/19 18:15 Dose: 650 mg Albuterol/Ipratropium (Duoneb 3.0-0.5 Mg/3 Ml) 3 ml NEB ONETIME ONE Stop: 02/10/19 16:00 Last Admin: 02/10/19 16:22 Dose: 3 ml Fentanyl (Duragesic) 75 mcg TOP Q72H [facility] Furosemide (Lasix) 20 mg PO BIDDIURETIC [facility] Last Admin: 02/14/19 09:06 Dose: Not Given Sodium Chloride (Normal Saline) 1,000 mls @ 999 mls/hr IV .BOLUS ONE Stop: 02/10/19 16:59 Last Admin: 02/10/19 16:17 Dose: 999 mls/hr Azithromycin 500 mg/ Sodium (Chloride) 250 mls @ 250 mls/hr IV ONETIME ONE Stop: 02/10/19 17:37 Last Admin: 02/10/19 17:02 Dose: 250 mls/hr Ceftriaxone Sodium 2 gm/ (Sodium Chloride) 100 mls @ 200 mls/hr IV ONETIME ONE Stop: 02/10/19 17:05 Last Admin: 02/10/19 18:13 Dose: 200 mls/hr Sodium Chloride (Normal Saline) 1,000 mls @ 999 mls/hr IV .BOLUS ONE Stop: 02/10/19 17:38 Last Admin: 02/10/19 18:14 Dose: 999 mls/hr Potassium Chloride/Sodium Chloride (Normal Saline With 20 Meq Kcl) 1,000 mls @ 125 mls/hr IV ASDIRECTED [facility] Last Admin: 02/12/19 05:31 Dose: 125 mls/hr Vancomycin HCl 1.25 gm/ Sodium (Chloride) 250 mls @ 166.667 mls/hr IV DAILY@ 1800 [facility] Last Admin: 02/11/19 19:28 Dose: 166.667 mls/hr Vancomycin HCl 1.25 gm/ Sodium (Chloride) 250 mls @ 166.667 mls/hr IV Q24H [facility] Last Admin: 02/13/19 22:53 Dose: Not Given Vancomycin HCl 1 gm/ Sodium (Chloride) 250 mls @ 166.667 mls/hr IV Q24H [facility] Last Admin: 02/13/19 22:03 Dose: 166.667 mls/hr Metoprolol Succinate (Toprol Xl) 100 mg PO DAILY [facility] Miscellaneous Information (Check Patch) 1 ea TRDERM BEDTIME [facility] Miscellaneous Information (Check Patch) 1 ea TRDERM BEDTIME [facility] Multivitamins (Thera) 1 each PO DAILY [facility] Last Admin: 02/13/19 09:00 Dose: 1 each Potassium Chloride (Klor-Con 10) 40 meq PO ONETIME ONE Stop: 02/10/19 23:01 Last Admin: 02/10/19 23:32 Dose: 40 meq Potassium Chloride (Klor-Con 10) 40 meq PO ONETIME ONE Stop: 02/10/19 20:16 Last Admin: 02/10/19 20:37 Dose: 40 meq Potassium Chloride (Klor-Con 10) 40 meq PO ONETIME ONE Stop: 02/12/19 14:01 Last Admin: 02/12/19 14:26 Dose: 40 meq Vancomycin HCl (Pharmacy To Dose - Vancomycin) 1 dose .XX ASDIRECTED [facility] - Exam General: Alert, Oriented HEENT: Pupils Equal, Pupils Reactive Neck: Supple Lungs: Clear to Auscultation, Normal Respiratory Effort Cardiovascular: Regular Rate, Regular Rhythm, No Murmurs GI/Abdominal Exam: Normal Bowel Sounds, Soft, Non-Tender, No Organomegaly Extremities: Pedal Edema Neurological: No New Focal Deficit - Problem List Review Problem List Initiated/Reviewed/Updated: Yes - My Orders Last 24 Hours: My Active Orders 02/17/19 05:11 BASIC METABOLIC PANEL,BMP [CHEM] AM CBC W/O DIFF,HEMOGRAM [HEME] AM - Plan Plan:: Sepsis 2/2 cellulitis Cellulitis of left leg continue IV Zosyn Blood cx positive for Strept sp Check 2D echo to r/o endocarditis: report awaited f/u repeat blood cx: negative so far Will plan 2 wks of IV antibiotics total. Will switch to 2g daily of ceftriaxone on DC. AZIZA on stable Cr stable monitor CR avoid nephrotoxic agents Hyponatremia: improving Urine lytes suggest SIADH Na improved to 130 hold lasix. Will resume lasix tomorrow for leg swelling fluid restrict to 1500 ml/day. monitor sodium q6 hrs Left thigh pain check CT Left LE for abscess: negative US: negative for DVT Chronic pain syndrome Urine tox : + oxycodone - opiates per report fentanyl patch has been filled 2 times in the past few days We'll cont with decreased fentanyl patch History of alcohol intake but he says he was not drinking this week We'll give thiamine, folate, multivitamin pt/ot eval and treat copd cont duoneb Deep venous thrombosis (DVT) prophylaxis will be with subcutaneous heparin.
[2019-02-16] MEDS: Thiamine 100 MG Tab PO SCH (20:57)
[2019-02-16] MEDS: Folic Acid 1 MG Tab PO SCH (20:57)
[2019-02-16] MEDS: Multivitamins,Therapeutic Tab PO SCH (20:57)
[2019-02-16] MEDS: fentaNYL 50 MCG/HR Transdermal Patch TRDERM SCH (21:20)
[2019-02-17] MEDS: Piperacillin/Tazobactam 2.25 GM in Sodium Chloride 0.9% 50 ML IV SCH ×4 (01:08→18:12)
[2019-02-17] MEDS: Albuterol/Ipratropium 3.0-0.5 MG/3 ML Neb Soln NEB SCH ×3 (01:08→13:33)
[2019-02-17] MEDS: oxyCODONE 5 MG Tab PO PRN ×4 (03:37→22:10)
[2019-02-17] MEDS: Acetaminophen 325 MG Tab PO PRN ×2 (03:38→22:09)
[2019-02-17] MEDS: Heparin Sodium 5,000 Units/ML Vial SUBCUT SCH ×3 (06:36→22:08)
[2019-02-17 07:09] LABS: ANION GAP 10.2
[2019-02-17] MEDS: Metoprolol Succinate 50 MG Tab.ER PO SCH (09:10)
[2019-02-17] MEDS: Ciprofloxacin 0.3% Ophth Soln 5 ML Bottle SCH ×3 (09:11→22:21)
[2019-02-17] MEDS: Furosemide 40 MG/4 ML VIAL IVPUSH SCH (09:51)
--- NOTE | 2019-02-17 11:52 | PCM.PN ---
- General Info Date of Service: 02/17/19 Admission Dx/Problem (Free Text): Admission Diagnosis/Problem Admission Diagnosis/Problem Sepsis Subjective Update: No new complaints this morning Still has bilateral leg swelling No chest pain, no SOB Being encouraged to increase mobility - Review of Systems General: Reports: No Symptoms. Denies: Fever HEENT: Reports: No Symptoms Pulmonary: Reports: No Symptoms Cardiovascular: Reports: No Symptoms Gastrointestinal: Reports: No Symptoms Genitourinary: Reports: No Symptoms Musculoskeletal: Reports: Leg Pain, Other (leg swelling) Neurological: Reports: No Symptoms - Patient Data Vitals - Most Recent: Last Vital Signs Temp 36.6 C 02/17/19 07:59 Pulse 71 02/17/19 09:10 Resp 20 02/17/19 07:59 BP 147/83 H 02/17/19 09:10 Pulse Ox 98 02/17/19 07:59 Weight - Most Recent: 116.301 kg I&O - Last 24 Hours: Intake & Output 02/16/19 02/17/19 02/17/19 22:59 06:59 14:59 Intake Total 755 125 50 Output Total 1050 600 Balance -295 -475 50 Lab Results Last 24 Hours: Laboratory Results - last 24 hr 02/17/19 02/17/19 Range/Units 06:30 06:30 WBC 7.3 (5.0-10.0) 10^3/uL RBC 3.54 L (4.6-6.2) 10^6/uL Hgb 11.3 L (14.0-18.0) g/dL Hct 32.9 L (40.0-54.0) % MCV 92.9 (80-100) fL MCH 31.9 (27.0-34.0) pg MCHC 34.3 (33.0-35.0) g/dL Plt Count 381 (150-450) 10^3/uL Sodium 130 L (135-145) mmol/L Potassium 4.2 (3.6-5.0) mmol/L Chloride 105 (101-111) mmol/L Carbon Dioxide 19.0 L (21.0-31.0) mmol/L Anion Gap 10.2 BUN 20 H (7-18) mg/dL Creatinine 1.4 H (0.6-1.3) mg/dL Est Cr Clr Drug Dosing 57.68 mL/min Estimated GFR (MDRD) 53 Glucose 93 (74-105) mg/dL Calcium 7.7 L (8.4-10.2) mg/dl Teto Results Last 24 Hours: Microbiology 02/13/19 14:30 Aerobic Blood Culture - Preliminary Blood - Venous - Lab Draw NO GROWTH AFTER 3 DAYS Anaerobic Blood Culture - Preliminary NO GROWTH AFTER 3 DAYS 02/13/19 12:04 Aerobic Blood Culture - Preliminary Blood - Venous NO GROWTH AFTER 3 DAYS Anaerobic Blood Culture - Preliminary NO GROWTH AFTER 3 DAYS Med Orders - Current: Current Medications Acetaminophen (Tylenol) 650 mg PO Q4H PRN PRN Reason: Fever Last Admin: 02/17/19 03:38 Dose: 650 mg Al Hydroxide/Mg Hydroxide (Mag-Al Plus) 30 ml PO Q4H PRN PRN Reason: Heartburn Albuterol/Ipratropium (Duoneb 3.0-0.5 Mg/3 Ml) 3 ml NEB Q2H PRN PRN Reason: sob Last Admin: 02/12/19 20:38 Dose: 3 ml Albuterol/Ipratropium (Duoneb 3.0-0.5 Mg/3 Ml) 3 ml NEB Q6HRRT [facility] Last Admin: 02/17/19 07:42 Dose: 3 ml Benzocaine/Menthol (Cepacol Sore Throat) 1 lozenge MUCMEM Q2H PRN PRN Reason: Sore Throat Ciprofloxacin (Ciprofloxacin 0.3% [facility]) 0 ml .XX TID [facility] Last Admin: 02/17/19 09:11 Dose: 4 drop Fentanyl (Duragesic) 50 mcg TRDERM Q72H [facility] Last Admin: 02/16/19 21:20 Dose: 50 mcg Folic Acid (Folic Acid) 1 mg PO BEDTIME [facility] Last Admin: 02/16/19 20:57 Dose: 1 mg Furosemide (Lasix) 40 mg IVPUSH DAILY [facility] Last Admin: 02/17/19 09:51 Dose: 40 mg Heparin Sodium (Porcine) (Heparin Sodium) 5,000 units SUBCUT Q8HR [facility] Last Admin: 02/17/19 06:36 Dose: 5,000 units Piperacillin Sod/Tazobactam (Sod 2.25 gm/ Sodium Chloride) 50 mls @ 100 mls/hr IV Q6HR [facility] Last Infusion: 02/17/19 07:13 Dose: Infused Methyl Salicylate (Icy Hot Cream) 1 gm TOP BID PRN PRN Reason: Pain (mild 1-3) Metoprolol Succinate (Toprol Xl) 100 mg PO DAILY [facility] Last Admin: 02/17/19 09:10 Dose: 100 mg Miscellaneous Information (Check Patch) 1 ea TRDERM BEDTIME [facility] Last Admin: 02/16/19 21:04 Dose: Not Given Multivitamins (Thera) 1 each PO BEDTIME [facility] Last Admin: 02/16/19 20:57 Dose: 1 each Ondansetron HCl (Zofran Odt) 4 mg PO Q6H PRN PRN Reason: nausea, able to take PO Last Admin: 02/12/19 08:35 Dose: 4 mg Ondansetron HCl (Zofran) 4 mg IVPUSH Q6H PRN PRN Reason: Nausea/Vomiting Last Admin: 02/14/19 21:33 Dose: 4 mg Oxycodone HCl (Oxycodone) 5 mg PO Q6H PRN PRN Reason: pain, severe Last Admin: 02/17/19 09:44 Dose: 5 mg Sodium Chloride (Saline Flush) 10 ml FLUSH ASDIRECTED PRN PRN Reason: Keep Vein Open Last Admin: 02/16/19 18:22 Dose: 10 ml Thiamine HCl (Vitamin B-1) 100 mg PO BEDTIME [facility] Last Admin: 02/16/19 20:57 Dose: 100 mg Discontinued Medications Acetaminophen (Tylenol) 650 mg PO NOW ONE Stop: 02/10/19 18:10 Last Admin: 02/10/19 18:15 Dose: 650 mg Albuterol/Ipratropium (Duoneb 3.0-0.5 Mg/3 Ml) 3 ml NEB ONETIME ONE Stop: 02/10/19 16:00 Last Admin: 02/10/19 16:22 Dose: 3 ml Fentanyl (Duragesic) 75 mcg TOP Q72H [facility] Furosemide (Lasix) 20 mg PO BIDDIURETIC [facility] Last Admin: 02/14/19 09:06 Dose: Not Given Sodium Chloride (Normal Saline) 1,000 mls @ 999 mls/hr IV .BOLUS ONE Stop: 02/10/19 16:59 Last Admin: 02/10/19 16:17 Dose: 999 mls/hr Azithromycin 500 mg/ Sodium (Chloride) 250 mls @ 250 mls/hr IV ONETIME ONE Stop: 02/10/19 17:37 Last Admin: 02/10/19 17:02 Dose: 250 mls/hr Ceftriaxone Sodium 2 gm/ (Sodium Chloride) 100 mls @ 200 mls/hr IV ONETIME ONE Stop: 02/10/19 17:05 Last Admin: 02/10/19 18:13 Dose: 200 mls/hr Sodium Chloride (Normal Saline) 1,000 mls @ 999 mls/hr IV .BOLUS ONE Stop: 02/10/19 17:38 Last Admin: 02/10/19 18:14 Dose: 999 mls/hr Potassium Chloride/Sodium Chloride (Normal Saline With 20 Meq Kcl) 1,000 mls @ 125 mls/hr IV ASDIRECTED [facility] Last Admin: 02/12/19 05:31 Dose: 125 mls/hr Vancomycin HCl 1.25 gm/ Sodium (Chloride) 250 mls @ 166.667 mls/hr IV DAILY@ 1800 [facility] Last Admin: 02/11/19 19:28 Dose: 166.667 mls/hr Vancomycin HCl 1.25 gm/ Sodium (Chloride) 250 mls @ 166.667 mls/hr IV Q24H [facility] Last Admin: 02/13/19 22:53 Dose: Not Given Vancomycin HCl 1 gm/ Sodium (Chloride) 250 mls @ 166.667 mls/hr IV Q24H [facility] Last Admin: 02/13/19 22:03 Dose: 166.667 mls/hr Metoprolol Succinate (Toprol Xl) 100 mg PO DAILY [facility] Miscellaneous Information (Check Patch) 1 ea TRDERM BEDTIME [facility] Miscellaneous Information (Check Patch) 1 ea TRDER BEDTIME [facility] Multivitamins (Thera) 1 each PO DAILY [facility] Last Admin: 02/13/19 09:00 Dose: 1 each Potassium Chloride (Klor-Con 10) 40 meq PO ONETIME ONE Stop: 02/10/19 23:01 Last Admin: 02/10/19 23:32 Dose: 40 meq Potassium Chloride (Klor-Con 10) 40 meq PO ONETIME ONE Stop: 02/10/19 20:16 Last Admin: 02/10/19 20:37 Dose: 40 meq Potassium Chloride (Klor-Con 10) 40 meq PO ONETIME ONE Stop: 02/12/19 14:01 Last Admin: 02/12/19 14:26 Dose: 40 meq Vancomycin HCl (Pharmacy To Dose - Vancomycin) 1 dose .XX ASDIRECTED [facility] - Exam General: Alert, Oriented HEENT: Pupils Equal, Pupils Reactive Lungs: Clear to Auscultation, Normal Respiratory Effort Cardiovascular: Regular Rate, Regular Rhythm, No Murmurs GI/Abdominal Exam: Normal Bowel Sounds, Soft, Non-Tender, No Organomegaly Extremities: Pedal Edema Neurological: No New Focal Deficit - Problem List Review Problem List Initiated/Reviewed/Updated: Yes - My Orders Last 24 Hours: My Active Orders 02/17/19 09:45 Furosemide [Lasix] 40 mg IVPUSH DAILY 02/18/19 05:11 BASIC METABOLIC PANEL,BMP [CHEM] AM CBC W/O DIFF,HEMOGRAM [HEME] AM 02/19/19 05:11 BASIC METABOLIC PANEL,BMP [CHEM] AM CBC W/O DIFF,HEMOGRAM [HEME] AM 02/20/19 05:11 BASIC METABOLIC PANEL,BMP [CHEM] AM CBC W/O DIFF,HEMOGRAM [HEME] AM - Plan Plan:: Sepsis 2/2 cellulitis Cellulitis of left leg continue IV Zosyn Blood cx positive for Strept sp Check 2D echo to r/o endocarditis: report awaited f/u repeat blood cx: negative so far Will plan 2 wks of IV antibiotics total. Will switch to 2g daily of ceftriaxone on DC. Lymphedema, Leg swelling Start IV lasix AZIZA on CKD, stable Cr stable monitor CR avoid nephrotoxic agents Hyponatremia: improving Urine lytes suggest SIADH Na improved to 130 fluid restrict to 1500 ml/day. Left thigh pain check CT Left LE for abscess: negative US: negative for DVT Chronic pain syndrome Urine tox : + oxycodone - opiates per report fentanyl patch has been filled 2 times in the past few days We'll cont with decreased fentanyl patch History of alcohol intake but he says he was not drinking this week We'll give thiamine, folate, multivitamin pt/ot eval and treat copd cont duoneb Deep venous thrombosis (DVT) prophylaxis will be with subcutaneous heparin.
[2019-02-17] MEDS: Sodium Chloride 0.9% 10 ML Syringe FLUSH PRN (18:13)
[2019-02-17] MEDS: Ondansetron 4 MG/2 ML SDV IVPUSH PRN (19:21)
[2019-02-17] MEDS: Thiamine 100 MG Tab PO SCH (22:07)
[2019-02-17] MEDS: Folic Acid 1 MG Tab PO SCH (22:08)
[2019-02-17] MEDS: Multivitamins,Therapeutic Tab PO SCH (22:08)
[2019-02-18] MEDS: Piperacillin/Tazobactam 2.25 GM in Sodium Chloride 0.9% 50 ML IV SCH ×5 (00:05→23:38)
[2019-02-18] MEDS: Heparin Sodium 5,000 Units/ML Vial SUBCUT SCH ×3 (06:20→21:26)
[2019-02-18] MEDS: Acetaminophen 325 MG Tab PO PRN ×2 (06:21→12:57)
[2019-02-18] MEDS: oxyCODONE 5 MG Tab PO PRN ×3 (06:22→19:09)
[2019-02-18 08:04] LABS: ANION GAP 10.2
[2019-02-18] MEDS: Metoprolol Succinate 50 MG Tab.ER PO SCH (09:47)
[2019-02-18] MEDS: Furosemide 40 MG/4 ML VIAL IVPUSH SCH (09:48)
[2019-02-18] MEDS: Sodium Chloride 0.9% 10 ML Syringe FLUSH PRN (09:49)
[2019-02-18] MEDS: Ciprofloxacin 0.3% Ophth Soln 5 ML Bottle SCH ×3 (09:55→21:27)
--- NOTE | 2019-02-18 10:03 | PCM.PN ---
- General Info Date of Service: 02/18/19 Admission Dx/Problem (Free Text): Admission Diagnosis/Problem Admission Diagnosis/Problem Sepsis Subjective Update: No new complaints this morning Leg swelling is remarkably improved No chest pain, no SOB Being encouraged to increase mobility - Review of Systems General: Reports: No Symptoms. Denies: Fever HEENT: Reports: No Symptoms Pulmonary: Reports: No Symptoms Cardiovascular: Reports: No Symptoms Gastrointestinal: Reports: No Symptoms Genitourinary: Reports: No Symptoms Musculoskeletal: Reports: Other (leg swelling) Skin: Reports: No Symptoms Neurological: Reports: No Symptoms - Patient Data Vitals - Most Recent: Last Vital Signs Temp 36.8 C 02/18/19 08:03 Pulse 70 02/18/19 09:47 Resp 20 02/18/19 08:03 BP 140/73 02/18/19 09:47 Pulse Ox 98 02/18/19 08:03 Weight - Most Recent: 112.264 kg I&O - Last 24 Hours: Intake & Output 02/17/19 02/18/19 02/18/19 22:59 06:59 14:59 Intake Total 1621 175 100 Output Total 1800 1000 500 Balance -179 825 -400 Lab Results Last 24 Hours: Laboratory Results - last 24 hr 02/18/19 02/18/19 Range/Units 07:38 07:38 WBC 10.0 (5.0-10.0) 10^3/uL RBC 3.22 L (4.6-6.2) 10^6/uL Hgb 10.3 L (14.0-18.0) g/dL Hct 30.7 L (40.0-54.0) % MCV 95.3 (80-100) fL MCH 32.0 (27.0-34.0) pg MCHC 33.6 (33.0-35.0) g/dL Plt Count 375 (150-450) 10^3/uL Sodium 132 L (135-145) mmol/L Potassium 4.2 (3.6-5.0) mmol/L Chloride 104 (101-111) mmol/L Carbon Dioxide 22.0 (21.0-31.0) mmol/L Anion Gap 10.2 BUN 37 H (7-18) mg/dL Creatinine 1.4 H (0.6-1.3) mg/dL Est Cr Clr Drug Dosing 57.68 mL/min Estimated GFR (MDRD) 53 Glucose 94 (74-105) mg/dL Calcium 7.8 L (8.4-10.2) mg/dl Teto Results Last 24 Hours: Microbiology 02/13/19 14:30 Aerobic Blood Culture - Preliminary Blood - Venous - Lab Draw NO GROWTH AFTER 4 DAYS Anaerobic Blood Culture - Preliminary NO GROWTH AFTER 4 DAYS 02/13/19 12:04 Aerobic Blood Culture - Preliminary Blood - Venous NO GROWTH AFTER 4 DAYS Anaerobic Blood Culture - Preliminary NO GROWTH AFTER 4 DAYS Med Orders - Current: Current Medications Acetaminophen (Tylenol) 650 mg PO Q4H PRN PRN Reason: Fever Last Admin: 02/18/19 06:21 Dose: 650 mg Al Hydroxide/Mg Hydroxide (Mag-Al Plus) 30 ml PO Q4H PRN PRN Reason: Heartburn Albuterol/Ipratropium (Duoneb 3.0-0.5 Mg/3 Ml) 3 ml NEB Q2H PRN PRN Reason: sob Last Admin: 02/12/19 20:38 Dose: 3 ml Benzocaine/Menthol (Cepacol Sore Throat) 1 lozenge MUCMEM Q2H PRN PRN Reason: Sore Throat Ciprofloxacin (Ciprofloxacin 0.3% [facility] Sol) 0 ml .XX TID [facility] Last Admin: 02/18/19 09:55 Dose: 4 drop Fentanyl (Duragesic) 50 mcg TRDERM Q72H [facility] Last Admin: 02/16/19 21:20 Dose: 50 mcg Folic Acid (Folic Acid) 1 mg PO BEDTIME [facility] Last Admin: 02/17/19 22:08 Dose: 1 mg Furosemide (Lasix) 40 mg IVPUSH DAILY [facility] Last Admin: 02/18/19 09:48 Dose: 40 mg Heparin Sodium (Porcine) (Heparin Sodium) 5,000 units SUBCUT Q8HR [facility] Last Admin: 02/18/19 06:20 Dose: 5,000 units Piperacillin Sod/Tazobactam (Sod 2.25 gm/ Sodium Chloride) 50 mls @ 100 mls/hr IV Q6HR [facility] Last Infusion: 02/18/19 07:34 Dose: Infused Methyl Salicylate (Icy Hot Cream) 1 gm TOP BID PRN PRN Reason: Pain (mild 1-3) Metoprolol Succinate (Toprol Xl) 100 mg PO DAILY [facility] Last Admin: 02/18/19 09:47 Dose: 100 mg Miscellaneous Information (Check Patch) 1 ea TRDERM BEDTIME [facility] Last Admin: 02/17/19 22:13 Dose: Not Given Multivitamins (Thera) 1 each PO BEDTIME [facility] Last Admin: 02/17/19 22:08 Dose: 1 each Ondansetron HCl (Zofran Odt) 4 mg PO Q6H PRN PRN Reason: nausea, able to take PO Last Admin: 02/12/19 08:35 Dose: 4 mg Ondansetron HCl (Zofran) 4 mg IVPUSH Q6H PRN PRN Reason: Nausea/Vomiting Last Admin: 02/17/19 19:21 Dose: 4 mg Oxycodone HCl (Oxycodone) 5 mg PO Q6H PRN PRN Reason: pain, severe Last Admin: 02/18/19 06:22 Dose: 5 mg Sodium Chloride (Saline Flush) 10 ml FLUSH ASDIRECTED PRN PRN Reason: Keep Vein Open Last Admin: 02/18/19 09:49 Dose: 10 ml Thiamine HCl (Vitamin B-1) 100 mg PO BEDTIME [facility] Last Admin: 02/17/19 22:07 Dose: 100 mg Discontinued Medications Acetaminophen (Tylenol) 650 mg PO NOW ONE Stop: 02/10/19 18:10 Last Admin: 02/10/19 18:15 Dose: 650 mg Albuterol/Ipratropium (Duoneb 3.0-0.5 Mg/3 Ml) 3 ml NEB ONETIME ONE Stop: 02/10/19 16:00 Last Admin: 02/10/19 16:22 Dose: 3 ml Albuterol/Ipratropium (Duoneb 3.0-0.5 Mg/3 Ml) 3 ml NEB Q6HRRT [facility] Last Admin: 02/17/19 13:33 Dose: Not Given Fentanyl (Duragesic) 75 mcg TOP Q72H [facility] Furosemide (Lasix) 20 mg PO BIDDIURETIC [facility] Last Admin: 02/14/19 09:06 Dose: Not Given Sodium Chloride (Normal Saline) 1,000 mls @ 999 mls/hr IV .BOLUS ONE Stop: 02/10/19 16:59 Last Admin: 02/10/19 16:17 Dose: 999 mls/hr Azithromycin 500 mg/ Sodium (Chloride) 250 mls @ 250 mls/hr IV ONETIME ONE Stop: 02/10/19 17:37 Last Admin: 02/10/19 17:02 Dose: 250 mls/hr Ceftriaxone Sodium 2 gm/ (Sodium Chloride) 100 mls @ 200 mls/hr IV ONETIME ONE Stop: 02/10/19 17:05 Last Admin: 02/10/19 18:13 Dose: 200 mls/hr Sodium Chloride (Normal Saline) 1,000 mls @ 999 mls/hr IV .BOLUS ONE Stop: 02/10/19 17:38 Last Admin: 02/10/19 18:14 Dose: 999 mls/hr Potassium Chloride/Sodium Chloride (Normal Saline With 20 Meq Kcl) 1,000 mls @ 125 mls/hr IV ASDIRECTED [facility] Last Admin: 02/12/19 05:31 Dose: 125 mls/hr Vancomycin HCl 1.25 gm/ Sodium (Chloride) 250 mls @ 166.667 mls/hr IV DAILY@ 1800 [facility] Last Admin: 02/11/19 19:28 Dose: 166.667 mls/hr Vancomycin HCl 1.25 gm/ Sodium (Chloride) 250 mls @ 166.667 mls/hr IV Q24H [facility] Last Admin: 02/13/19 22:53 Dose: Not Given Vancomycin HCl 1 gm/ Sodium (Chloride) 250 mls @ 166.667 mls/hr IV Q24H [facility] Last Admin: 02/13/19 22:03 Dose: 166.667 mls/hr Metoprolol Succinate (Toprol Xl) 100 mg PO DAILY [facility] Miscellaneous Information (Check Patch) 1 ea TRDERM BEDTIME [facility] Miscellaneous Information (Check Patch) 1 ea TRDERM BEDTIME [facility] Multivitamins (Thera) 1 each PO DAILY [facility] Last Admin: 02/13/19 09:00 Dose: 1 each Potassium Chloride (Klor-Con 10) 40 meq PO ONETIME ONE Stop: 02/10/19 23:01 Last Admin: 02/10/19 23:32 Dose: 40 meq Potassium Chloride (Klor-Con 10) 40 meq PO ONETIME ONE Stop: 02/10/19 20:16 Last Admin: 02/10/19 20:37 Dose: 40 meq Potassium Chloride (Klor-Con 10) 40 meq PO ONETIME ONE Stop: 02/12/19 14:01 Last Admin: 02/12/19 14:26 Dose: 40 meq Vancomycin HCl (Pharmacy To Dose - Vancomycin) 1 dose .XX ASDIRECTED [facility] - Exam General: Alert, Oriented HEENT: Pupils Equal, Pupils Reactive Neck: Supple Lungs: Clear to Auscultation, Normal Respiratory Effort Cardiovascular: Regular Rate, Regular Rhythm GI/Abdominal Exam: Normal Bowel Sounds, Soft, Non-Tender, No Organomegaly Extremities: Pedal Edema Neurological: No New Focal Deficit - Problem List Review Problem List Initiated/Reviewed/Updated: Yes - My Orders Last 24 Hours: My Active Orders 02/17/19 09:45 Furosemide [Lasix] 40 mg IVPUSH DAILY 02/19/19 05:11 BASIC METABOLIC PANEL,BMP [CHEM] AM CBC W/O DIFF,HEMOGRAM [HEME] AM 02/20/19 05:11 BASIC METABOLIC PANEL,BMP [CHEM] AM CBC W/O DIFF,HEMOGRAM [HEME] AM - Plan Plan:: Cellulitis of left leg continue IV Zosyn Blood cx positive for Strept sp Check 2D echo to r/o endocarditis: report awaited f/u repeat blood cx: negative so far Will plan 2 wks of IV antibiotics total. Will switch to 2g daily of ceftriaxone on DC. Lymphedema, Leg swelling Continue IV lasix AZIZA on CKD, stable Cr stable monitor CR avoid nephrotoxic agents Hyponatremia: improving Urine lytes suggest SIADH Na improved to 130 fluid restrict to 1500 ml/day. Left thigh pain check CT Left LE for abscess: negative US: negative for DVT Chronic pain syndrome Urine tox : + oxycodone - opiates per report fentanyl patch has been filled 2 times in the past few days We'll cont with decreased fentanyl patch History of alcohol intake but he says he was not drinking this week We'll give thiamine, folate, multivitamin pt/ot eval and treat copd cont duoneb Deep venous thrombosis (DVT) prophylaxis will be with subcutaneous heparin.
[2019-02-18] MEDS: Thiamine 100 MG Tab PO SCH (21:24)
[2019-02-18] MEDS: Folic Acid 1 MG Tab PO SCH (21:25)
[2019-02-18] MEDS: Multivitamins,Therapeutic Tab PO SCH (21:25)
[2019-02-18] MEDS ORDERED: fentaNYL 50 MCG/HR Transdermal Patch TRDERM SCH (22:00)
[2019-02-19] MEDS: oxyCODONE 5 MG Tab PO PRN ×3 (00:18→13:00)
[2019-02-19] MEDS: Heparin Sodium 5,000 Units/ML Vial SUBCUT SCH ×2 (05:52→15:04)
[2019-02-19] MEDS: Piperacillin/Tazobactam 2.25 GM in Sodium Chloride 0.9% 50 ML IV SCH (05:52)
[2019-02-19 08:07] VITALS: BP 143/77; PULSE 86
[2019-02-19 08:10] LABS: ANION GAP 10.5
[2019-02-19] MEDS: Metoprolol Succinate 50 MG Tab.ER PO SCH (09:24)
[2019-02-19] MEDS: Furosemide 40 MG/4 ML VIAL IVPUSH SCH (09:25)
[2019-02-19] MEDS: Sodium Chloride 0.9% 10 ML Syringe FLUSH PRN ×2 (09:25→11:19)
[2019-02-19] MEDS ORDERED: cefTRIAXone 2 GM in Sodium Chloride 0.9% 100 ML IV SCH (11:00)
--- NOTE | 2019-02-19 11:02 | PCM.DCSUM1 ---
Discharge Summary - Hospital Course Free Text/Narrative:: 53-year-old with a history of chronic pain syndrome on fentanyl, oxycodone, severe osteoarthritis, CKD who presents with fever, left leg redness and swelling. He was managed for sepsis 2/2 cellulitis. Started on broad spectrum abx. Blood cx positive for Stept sp. 2D echo done to rule out vegetations. Fever subsided. Cellulitis improved remarkably. Patient also had significant hyponatremia, urine lytes suggested SIADH, was placed on fluid restriction and sodium improved. Worked with PT/OT and mobility improved, however still limited by severe osteoarthritis. Plan IV ceftriaxone 2g to complete on 02/22/19, 14 days of IV abx for bacteremia Follow up with PCP Follow up with orthopedic surgery for severe osteoarthritis (patient will make the appointment) Patient has fistula with thrill. Follow up with domestic freight forwarder. Diagnosis: Stroke: No Modified Joon Scale: No Symptoms at All Modified [place] Scale Score: 0 - Discharge Data Discharge Date: 02/19/19 Discharge Disposition: Home, Self-Care 01 Condition: Fair - Referral to Home Health Primary Care Physician: PCP None - Patient Summary/Data Consults: Consultations 02/11/19 10:57 OT Evaluation and Treatment [CONS] Routine PT Evaluation and Treatment [CONS] Routine 02/13/19 11:08 OT Evaluation and Treatment [CONS] Routine - Patient Instructions Diet: Usual Diet as Tolerated Activity: As Tolerated Showering/Bathing: May Shower - Discharge Plan *PRESCRIPTION DRUG MONITORING PROGRAM REVIEWED*: No *COPY OF PRESCRIPTION DRUG MONITORING REPORT IN PATIENT KATELIN: No Prescriptions/Med Rec: Furosemide [Lasix] 40 mg PO DAILY 30 Days #30 tablet oxyCODONE 5 mg PO QID 30 Days #20 tablet Home Medications: Home Meds Metoprolol Succinate 100 mg PO DAILY 02/10/19 [History] Multivitamin [Multivitamins] 1 each PO DAILY 02/10/19 [History] fentaNYL [Duragesic] 75 mcg TOP ASDIRECTED 02/10/19 [History] Furosemide [Lasix] 40 mg PO DAILY 30 Days #30 tablet 02/19/19 [Rx] cefTRIAXone [Rocephin] 2 gm IV Q24H 3 Days #3 adv 02/19/19 [Rx] oxyCODONE 5 mg PO QID 30 Days #20 tablet 02/19/19 [Rx] Forms: ED Department Discharge Referrals: PCP,None [Primary Care Provider] - - Discharge Summary/Plan Comment DC Time >30 min.: Yes - General Info Date of Service: 02/19/19 Admission Dx/Problem (Free Text: Admission Diagnosis/Problem Admission Diagnosis/Problem Sepsis Subjective Update: No new complaints this morning Leg swelling is remarkably improved No chest pain, no SOB Being encouraged to increase mobility - Review of Systems General: Reports: No Symptoms HEENT: Reports: No Symptoms Pulmonary: Reports: No Symptoms Cardiovascular: Reports: No Symptoms Gastrointestinal: Reports: No Symptoms Genitourinary: Reports: No Symptoms Musculoskeletal: Reports: Joint Pain Neurological: Reports: No Symptoms - Patient Data Vitals - Most Recent: Last Vital Signs Temp 35.9 C 02/19/19 08:06 Pulse 86 02/19/19 09:24 Resp 20 02/19/19 08:06 BP 143/77 H 02/19/19 09:24 Pulse Ox 98 02/19/19 08:06 Weight - Most Recent: 110.314 kg I&O - Last 24 hours: Intake & Output 02/18/19 02/19/19 02/19/19 22:59 06:59 14:59 Intake Total 250 710 200 Output Total 1250 900 300 Balance -1000 -190 -100 Lab Results - Last 24 hrs: Laboratory Results - last 24 hr 02/19/19 02/19/19 Range/Units 07:32 07:32 WBC 9.2 (5.0-10.0) 10^3/uL RBC 2.60 L (4.6-6.2) 10^6/uL Hgb 8.3 L D (14.0-18.0) g/dL Hct 25.0 L (40.0-54.0) % MCV 96.2 (80-100) fL MCH 31.9 (27.0-34.0) pg MCHC 33.2 (33.0-35.0) g/dL Plt Count 359 (150-450) 10^3/uL Sodium 133 L (135-145) mmol/L Potassium 4.5 (3.6-5.0) mmol/L Chloride 105 (101-111) mmol/L Carbon Dioxide 22.0 (21.0-31.0) mmol/L Anion Gap 10.5 BUN 58 H (7-18) mg/dL Creatinine 1.4 H (0.6-1.3) mg/dL Est Cr Clr Drug Dosing 57.68 mL/min Estimated GFR (MDRD) 53 Glucose 100 (74-105) mg/dL Calcium 8.0 L (8.4-10.2) mg/dl TORIBIO Results - Last 24 hrs: Microbiology 02/13/19 14:30 Aerobic Blood Culture - Final Blood - Venous - Lab Draw NO GROWTH AFTER 5 DAYS Anaerobic Blood Culture - Final NO GROWTH AFTER 5 DAYS 02/13/19 12:04 Aerobic Blood Culture - Final Blood - Venous NO GROWTH AFTER 5 DAYS Anaerobic Blood Culture - Final NO GROWTH AFTER 5 DAYS Med Orders - Current: Current Medications Acetaminophen (Tylenol) 650 mg PO Q4H PRN PRN Reason: Fever Last Admin: 02/18/19 12:57 Dose: 650 mg Al Hydroxide/Mg Hydroxide (Mag-Al Plus) 30 ml PO Q4H PRN PRN Reason: Heartburn Albuterol/Ipratropium (Duoneb 3.0-0.5 Mg/3 Ml) 3 ml NEB Q2H PRN PRN Reason: sob Last Admin: 02/12/19 20:38 Dose: 3 ml Benzocaine/Menthol (Cepacol Sore Throat) 1 lozenge MUCMEM Q2H PRN PRN Reason: Sore Throat Fentanyl (Duragesic) 50 mcg TRDERM Q72H [facility] Last Admin: 02/18/19 21:54 Dose: 50 mcg Folic Acid (Folic Acid) 1 mg PO BEDTIME [facility] Last Admin: 02/18/19 21:25 Dose: 1 mg Furosemide (Lasix) 40 mg IVPUSH DAILY [facility] Last Admin: 02/19/19 09:25 Dose: 40 mg Heparin Sodium (Porcine) (Heparin Sodium) 5,000 units SUBCUT Q8HR [facility] Last Admin: 02/19/19 05:52 Dose: 5,000 units Ceftriaxone Sodium 2 gm/ (Sodium Chloride) 100 mls @ 200 mls/hr IV Q24H [facility] Methyl Salicylate (Icy Hot Cream) 1 gm TOP BID PRN PRN Reason: Pain (mild 1-3) Metoprolol Succinate (Toprol Xl) 100 mg PO DAILY [facility] Last Admin: 02/19/19 09:24 Dose: 100 mg Miscellaneous Information (Check Patch) 1 ea TRDERM Q24H [facility] Multivitamins (Thera) 1 each PO BEDTIME [facility] Last Admin: 02/18/19 21:25 Dose: 1 each Ondansetron HCl (Zofran Odt) 4 mg PO Q6H PRN PRN Reason: nausea, able to take PO Last Admin: 02/12/19 08:35 Dose: 4 mg Ondansetron HCl (Zofran) 4 mg IVPUSH Q6H PRN PRN Reason: Nausea/Vomiting Last Admin: 02/17/19 19:21 Dose: 4 mg Oxycodone HCl (Oxycodone) 5 mg PO Q6H PRN PRN Reason: pain, severe Last Admin: 02/19/19 06:05 Dose: 5 mg Sodium Chloride (Saline Flush) 10 ml FLUSH ASDIRECTED PRN PRN Reason: Keep Vein Open Last Admin: 02/19/19 09:25 Dose: 10 ml Thiamine HCl (Vitamin B-1) 100 mg PO BEDTIME [facility] Last Admin: 02/18/19 21:24 Dose: 100 mg Discontinued Medications Acetaminophen (Tylenol) 650 mg PO NOW ONE Stop: 02/10/19 18:10 Last Admin: 02/10/19 18:15 Dose: 650 mg Albuterol/Ipratropium (Duoneb 3.0-0.5 Mg/3 Ml) 3 ml NEB ONETIME ONE Stop: 02/10/19 16:00 Last Admin: 02/10/19 16:22 Dose: 3 ml Albuterol/Ipratropium (Duoneb 3.0-0.5 Mg/3 Ml) 3 ml NEB Q6HRRT [facility] Last Admin: 02/17/19 13:33 Dose: Not Given Ciprofloxacin (Ciprofloxacin 0.3% [facility]) 0 ml .XX TID [facility] Stop: 02/19/19 08:56 Last Admin: 02/18/19 21:27 Dose: 4 drop Fentanyl (Duragesic) 75 mcg TOP Q72H [facility] Fentanyl (Duragesic) 50 mcg TRDERM Q72H [facility] Last Admin: 02/16/19 21:20 Dose: 50 mcg Furosemide (Lasix) 20 mg PO BIDDIURETIC [facility] Last Admin: 02/14/19 09:06 Dose: Not Given Sodium Chloride (Normal Saline) 1,000 mls @ 999 mls/hr IV .BOLUS ONE Stop: 02/10/19 16:59 Last Admin: 02/10/19 16:17 Dose: 999 mls/hr Azithromycin 500 mg/ Sodium (Chloride) 250 mls @ 250 mls/hr IV ONETIME ONE Stop: 02/10/19 17:37 Last Admin: 02/10/19 17:02 Dose: 250 mls/hr Ceftriaxone Sodium 2 gm/ (Sodium Chloride) 100 mls @ 200 mls/hr IV ONETIME ONE Stop: 02/10/19 17:05 Last Admin: 02/10/19 18:13 Dose: 200 mls/hr Sodium Chloride (Normal Saline) 1,000 mls @ 999 mls/hr IV .BOLUS ONE Stop: 02/10/19 17:38 Last Admin: 02/10/19 18:14 Dose: 999 mls/hr Potassium Chloride/Sodium Chloride (Normal Saline With 20 Meq Kcl) 1,000 mls @ 125 mls/hr IV ASDIRECTED [facility] Last Admin: 02/12/19 05:31 Dose: 125 mls/hr Piperacillin Sod/Tazobactam (Sod 2.25 gm/ Sodium Chloride) 50 mls @ 100 mls/hr IV Q6HR [facility] Last Admin: 02/19/19 05:52 Dose: 100 mls/hr Vancomycin HCl 1.25 gm/ Sodium (Chloride) 250 mls @ 166.667 mls/hr IV DAILY@ 1800 [facility] Last Admin: 02/11/19 19:28 Dose: 166.667 mls/hr Vancomycin HCl 1.25 gm/ Sodium (Chloride) 250 mls @ 166.667 mls/hr IV Q24H [facility] Last Admin: 02/13/19 22:53 Dose: Not Given Vancomycin HCl 1 gm/ Sodium (Chloride) 250 mls @ 166.667 mls/hr IV Q24H [facility] Last Admin: 02/13/19 22:03 Dose: 166.667 mls/hr Metoprolol Succinate (Toprol Xl) 100 mg PO DAILY [facility] Miscellaneous Information (Check Patch) 1 ea TRDERM BEDTIME [facility] Miscellaneous Information (Check Patch) 1 ea TRDERM BEDTIME [facility] Miscellaneous Information (Check Patch) 1 ea TRDERM BEDTIME [facility] Last Admin: 02/18/19 22:08 Dose: Not Given Multivitamins (Thera) 1 each PO DAILY [facility] Last Admin: 02/13/19 09:00 Dose: 1 each Potassium Chloride (Klor-Con 10) 40 meq PO ONETIME ONE Stop: 02/10/19 23:01 Last Admin: 02/10/19 23:32 Dose: 40 meq Potassium Chloride (Klor-Con 10) 40 meq PO ONETIME ONE Stop: 02/10/19 20:16 Last Admin: 02/10/19 20:37 Dose: 40 meq Potassium Chloride (Klor-Con 10) 40 meq PO ONETIME ONE Stop: 02/12/19 14:01 Last Admin: 02/12/19 14:26 Dose: 40 meq Vancomycin HCl (Pharmacy To Dose - Vancomycin) 1 dose .XX ASDIRECTED [facility] - Exam General: Reports: Alert, Oriented HEENT: Reports: Pupils Equal, Pupils Reactive Neck: Reports: Supple Lungs: Reports: Clear to Auscultation Cardiovascular: Reports: Regular Rate, Regular Rhythm GI/Abdominal Exam: Normal Bowel Sounds, Soft, Non-Tender, No Organomegaly Skin: Reports: Warm, Dry, Intact Neurological: Reports: No New Focal Deficit
== END 2019-02-19 13:15 | disposition home or self-care (01) | DRG 871 ==
LOC: DL.ED 15:23 → DL.MS 17:51
PROVIDERS: ADMIT Internal Medicine; ATTEND Hospitalist
DX: A41.9 Sepsis, unspecified organism (principal); J18.9 Pneumonia, unspecified organism; L03.116 Cellulitis of left lower limb; N17.9 Acute kidney failure, unspecified; E87.2 Acidosis; R06.02 Shortness of breath; R11.2 Nausea with vomiting, unspecified; R53.1 Weakness; J45.909 Unspecified asthma, uncomplicated; E87.1 Hypo-osmolality and hyponatremia; J44.0 Chronic obstructive pulmonary disease with (acute) lower respiratory infection; R65.20 Severe sepsis without septic shock; E87.6 Hypokalemia; E86.0 Dehydration; K29.70 Gastritis, unspecified, without bleeding; I89.0 Lymphedema, not elsewhere classified; B95.4 Other streptococcus as the cause of diseases classified elsewhere; M19.90 Unspecified osteoarthritis, unspecified site; M81.0 Age-related osteoporosis without current pathological fracture; G89.4 Chronic pain syndrome; N18.9 Chronic kidney disease, unspecified; Z91.09 Other allergy status, other than to drugs and biological substances; Z79.899 Other long term (current) drug therapy
CPT/HCPCS: 36415; 71046; 80053; 83605; 85025; 87040; 87077; 87804 ×2; 94640; 96365; 96366; 96368; 99284; 99285; G0480; J0456; J7030; J7050; 73700-LT; 80048; 80202; 80305-QW; 81001; 82570; 83935; 84295; 84300; 85027; 87086; 93306; 93971; 96375; 96376; 97116-GP; 97140-GO; 97162-GP; 97165-GO; 97530-GO; 97535-GO; A9270-GY; J0696; J1644; J1940; J2405; J2543; J3370; J3480; J7620-GY

== ENCOUNTER 2019-06-05 13:03 | Emergency (ER) | payer MEDICARE, OTHER ==
[2019-06-05 13:59] VITALS: BP 154/89; PULSE 113
[2019-06-05 16:00] LABS: ANION GAP 16.7
[2019-06-05] MEDS ORDERED: Vancomycin 1.75 GM in Sodium Chloride 0.9% 500 ML IV ONE (16:03)
--- NOTE | 2019-06-05 18:45 | EDM.PDOC ---
Scribed by Lauren Byrd 06/05/19 [id number] for Marco Fajardo PA <Marco Fajardo - Last Filed: 06/05/19 18:45> ED HPI GENERAL MEDICAL PROBLEM - General Chief Complaint: Lower Extremity Injury/Pain Stated Complaint: LEFT ANKLE INFECTED? Time Seen by Provider: 06/05/19 15:10 Source of Information: Reports: Patient, RN, RN Notes Reviewed History Limitations: Reports: No Limitations - History of Present Illness INITIAL COMMENTS - FREE TEXT/NARRATIVE: Patient is a 54-year-old male with left lower extremity erythema and bloody urination. The patient reports the swelling in the left leg started last week and bloody urination started on Tuesday. Patient reports chills and just not feeling well. Onset: Gradual Duration: Getting Worse Location: Reports: Lower Extremity, Left Quality: Reports: Ache Severity: Moderate Improves with: Reports: None Worsens with: Reports: None Associated Symptoms: Reports: No Other Symptoms Left Ankle Pain Score (Numeric/FACES): 8 - Related Data Allergies Allergy/AdvReac Type Severity Reaction Status Date / Time cat pelt standardized Allergy Hives Verified 06/05/19 13:50 allergenic ex [cat pelt standardized extract] Home Meds: Home Meds Metoprolol Succinate 100 mg PO DAILY 02/10/19 [History] Multivitamin [Multivitamins] 1 each PO DAILY 02/10/19 [History] fentaNYL [Duragesic] 75 mcg TOP ASDIRECTED 02/10/19 [History] Furosemide [Lasix] 40 mg PO DAILY 30 Days #30 tablet 02/19/19 [Rx] cefTRIAXone [Rocephin] 2 gm IV Q24H 3 Days #3 adv 02/19/19 [Rx] oxyCODONE 5 mg PO QID 30 Days #20 tablet 02/19/19 [Rx] Albuterol [Proventil] 1 vial INH DAILY PRN 02/20/19 [History] Albuterol [Ventolin 2 MG/5 ML] 2 puff INH DAILY PRN 02/20/19 [History] Fluticasone/Salmeterol [Advair 250-50] 1 puff INH DAILY PRN 02/20/19 [History] Past Medical History HEENT History: Reports: Other (See Below) Other HEENT History: frequent tonsillitis, none since 20's Cardiovascular History: Reports: Hypertension Respiratory History: Reports: Asthma Gastrointestinal History: Reports: None Genitourinary History: Reports: Acute Renal Failure, Dialysis Other Genitourinary History: currently not on dialysis Musculoskeletal History: Reports: Osteoporosis, Other (See Below) Other Musculoskeletal History: hip problems Neurological History: Reports: Seizure Psychiatric History: Reports: None Endocrine/Metabolic History: Reports: Diabetes, Type II, Osteoporosis Hematologic History: Reports: Blood Transfusion(s) Immunologic History: Reports: None Oncologic (Cancer) History: Reports: None Dermatologic History: Reports: Cellulitis, Other (See Below) Other Dermatologic History: EDEMA TO BILATERAL LEGS - Infectious Disease History Infectious Disease History: Reports: Chicken Pox, Measles - Past Surgical History HEENT Surgical History: Reports: Naso-Sinus Surgery GI Surgical History: Reports: Hernia, Abdominal Social & Family History - Family History Family Medical History: Noncontributory - Tobacco Use Smoking Status *Q: Never Smoker Second Hand Smoke Exposure: Yes - Caffeine Use Caffeine Use: Reports: Soda - Recreational Drug Use Recreational Drug Use: No Review of Systems - Review of Systems Review Of Systems: Comprehensive ROS is negative, except as noted in HPI. ED EXAM, GENERAL - Physical Exam Exam: See Below Exam Limited By: No Limitations General Appearance: Alert, WD/WN, No Apparent Distress Eye Exam: Bilateral Eye: EOMI, Normal Inspection, PERRL Ears: Normal External Exam, Normal Canal, Hearing Grossly Normal, Normal TMs Nose: Normal Inspection, Normal Mucosa, No Blood Throat/Mouth: Normal Inspection, Normal Lips, Normal Teeth, Normal Gums, Normal Oropharynx, Normal Voice, No Airway Compromise Head: Atraumatic, Normocephalic Neck: Normal Inspection, Supple, Non-Tender, Full Range of Motion Respiratory/Chest: No Respiratory Distress, Lungs Clear, Normal Breath Sounds, No Accessory Muscle Use, Chest Non-Tender Cardiovascular: Normal Peripheral Pulses, Regular Rate, Rhythm, No Edema, No Gallop, No JVD, No Murmur, No Rub GI/Abdominal: Other (no abdominal tenderness) (Male) Exam: Deferred Rectal (Males) Exam: Deferred Back Exam: Normal Inspection, Full Range of Motion, NT Extremities: Normal Inspection, Normal Range of Motion, Non-Tender, Normal Capillary Refill, No Pedal Edema Neurological: Alert, Oriented, CN II-XII Intact, Normal Cognition, Normal Gait, Normal Reflexes, No Motor/Sensory Deficits Psychiatric: Normal Affect, Normal Mood Skin Exam: Other (left lower extremity erythema. Wound to anterior ankle.) Lymphatic: No Adenopathy Course - Vital Signs Last Recorded V/S: Last Vital Signs Temp 102.1 F H 06/05/19 19:19 Pulse 113 H 06/05/19 13:50 Resp 16 06/05/19 13:50 BP 154/89 H 06/05/19 13:50 Pulse Ox 97 06/05/19 13:50 - Orders/Labs/Meds Orders: Active Orders 24 hr Category Date Time Status Abdomen Pelvis wo Cont [CT] Urgent Exams 06/05/19 18:07 Taken CULTURE BLOOD [BC] Stat Lab 06/05/19 15:30 Received CULTURE BLOOD [BC] Stat Lab 06/05/19 16:21 Received CULTURE URINE [RM] Stat Lab 06/05/19 17:27 Received Labs: Laboratory Tests 06/05/19 06/05/19 06/05/19 Range/Units 15:30 15:30 15:30 WBC 16.4 H (5.0-10.0) 10^3/uL RBC 4.26 L (4.6-6.2) 10^6/uL Hgb 13.4 L D (14.0-18.0) g/dL Hct 39.5 L (40.0-54.0) % MCV 92.7 D (80-100) fL MCH 31.5 (27.0-34.0) pg MCHC 33.9 (33.0-35.0) g/dL Plt Count 146 L D (150-450) 10^3/uL Neut % (Auto) 90.7 H (42.2-75.2) % Lymph % (Auto) 2.7 L (20.5-50.1) % [place] % (Auto) 6.4 (2-8) % Eos % (Auto) 0.1 L (1.0-3.0) % Baso % (Auto) 0.1 (0.0-1.0) % Sodium 130 L (135-145) mmol/L Potassium 3.7 (3.6-5.0) mmol/L Chloride 91 L D (101-111) mmol/L Carbon Dioxide 26.0 (21.0-31.0) mmol/L Anion Gap 16.7 BUN 20 H D (7-18) mg/dL Creatinine 1.5 H (0.6-1.3) mg/dL Est Cr Clr Drug Dosing 53.20 mL/min Estimated GFR (MDRD) 48 BUN/Creatinine Ratio 13.33 Glucose 133 H (74-105) mg/dL Lactic Acid 2.2 (0.5-2.2) mmol/L Calcium 7.9 L (8.4-10.2) mg/dl Total Bilirubin 1.3 H (0.2-1.0) mg/dL AST 29 (10-42) IU/L ALT 13 (10-60) IU/L Alkaline Phosphatase 110 (42-121) IU/L Total Protein 7.7 (6.7-8.2) g/dl Albumin 3.1 L (3.2-5.5) g/dl Globulin 4.6 Albumin/Globulin Ratio 0.67 Urine Color (YELLOW) Urine Appearance (CLEAR) Urine pH (5.0-9.0) Ur Specific [place] (1.005-1.030) Urine Protein (NEGATIVE) Urine Glucose (UA) (NEGATIVE) Urine Ketones (NEGATIVE) Urine Occult Blood (NEGATIVE) Urine Nitrite (NEGATIVE) Urine Bilirubin (NEGATIVE) Urine Urobilinogen (0.2-1.0) mg/dL Ur Leukocyte Esterase (NEGATIVE) Urine RBC /HPF Urine WBC (0-5/HPF) /HPF Ur Epithelial Cells (NOT SEEN) /HPF Amorphous Sediment (NOT SEEN) /HPF Urine Bacteria (0-FEW/HPF) /HPF Urine Mucus (NOT SEEN) /LPF 06/05/19 Range/Units 17:27 WBC (5.0-10.0) 10^3/uL RBC (4.6-6.2) 10^6/uL Hgb (14.0-18.0) g/dL Hct (40.0-54.0) % MCV (80-100) fL MCH (27.0-34.0) pg MCHC (33.0-35.0) g/dL Plt Count (150-450) 10^3/uL Neut % (Auto) (42.2-75.2) % Lymph % (Auto) (20.5-50.1) % [place] % (Auto) (2-8) % Eos % (Auto) (1.0-3.0) % Baso % (Auto) (0.0-1.0) % Sodium (135-145) mmol/L Potassium (3.6-5.0) mmol/L Chloride (101-111) mmol/L Carbon Dioxide (21.0-31.0) mmol/L Anion Gap BUN (7-18) mg/dL Creatinine (0.6-1.3) mg/dL Est Cr Clr Drug Dosing mL/min Estimated GFR (MDRD) BUN/Creatinine Ratio Glucose (74-105) mg/dL Lactic Acid (0.5-2.2) mmol/L Calcium (8.4-10.2) mg/dl Total Bilirubin (0.2-1.0) mg/dL AST (10-42) IU/L ALT (10-60) IU/L Alkaline Phosphatase (42-121) IU/L Total Protein (6.7-8.2) g/dl Albumin (3.2-5.5) g/dl Globulin Albumin/Globulin Ratio Urine Color Yellow (YELLOW) Urine Appearance Clear (CLEAR) Urine pH 5.5 (5.0-9.0) Ur Specific [place] 1.015 (1.005-1.030) Urine Protein >=300 H (NEGATIVE) Urine Glucose (UA) Negative (NEGATIVE) Urine Ketones Negative (NEGATIVE) Urine Occult Blood Large H (NEGATIVE) Urine Nitrite Negative (NEGATIVE) Urine Bilirubin Negative (NEGATIVE) Urine Urobilinogen 0.2 (0.2-1.0) mg/dL Ur Leukocyte Esterase Trace H (NEGATIVE) Urine RBC 10-20 H /HPF Urine WBC 0-5 (0-5/HPF) /HPF Ur Epithelial Cells Rare (NOT SEEN) /HPF Amorphous Sediment Few (NOT SEEN) /HPF Urine Bacteria Few (0-FEW/HPF) /HPF Urine Mucus Rare (NOT SEEN) /LPF Meds: Medications Discontinued Medications Generic Name Dose Route Start Last Admin Trade Name Elvinq PRN Reason Stop Dose Admin Acetaminophen 650 mg 06/05/19 19:18 06/05/19 19:21 Tylenol PO 06/05/19 19:19 650 mg NOW ONE Administration Vancomycin HCl 1.75 gm/ Sodium 500 mls @ 334 mls/hr 06/05/19 16:03 06/05/19 16:53 Chloride IV 06/05/19 17:32 334 mls/hr ONETIME ONE Administration Sodium Chloride 1,000 mls @ 125 mls/hr 06/05/19 20:00 06/05/19 19:48 Normal Saline IV 125 mls/hr ASDIRECTED RUTH Administration Morphine Sulfate 2 mg 06/05/19 19:29 06/05/19 19:37 Morphine IVPUSH 06/05/19 19:30 2 mg ONETIME ONE Administration Ondansetron HCl 4 mg 06/05/19 19:29 06/05/19 19:37 Zofran IV 06/05/19 19:30 4 mg ONETIME ONE Administration - Re-Assessments/Exams Free Text/Narrative Re-Assessment/Exam: 06/05/19 18:44 The patient was advised of the results up to the CT results. Patient care was transferred to Alejandrina Dawson due to shift change. Departure - Departure Disposition: DC/Tfer to [facility] 02 Clinical Impression: Chronic hip pain, bilateral, Distended umbilical veins Cellulitis of lower extremity Qualifiers: Laterality: left Qualified Code(s): L03.116 - Cellulitis of left lower limb Sepsis Qualifiers: Sepsis type: sepsis due to unspecified organism Sepsis acute organ dysfunction status: with acute organ dysfunction Severe sepsis acute organ dysfunction type : acute renal failure Acute renal failure type: unspecified Severe sepsis shock status: without septic shock Qualified Code(s): A41.9 - Sepsis, unspecified organism - Discharge Information Forms: ED Department Discharge Sepsis Event Note - Evaluation Sepsis Screening Result: No Definite Risk - Focused Exam Vital Signs: Vital Signs Temp Pulse Resp BP Pulse Ox 06/05/19 19:19 102.1 F H 06/05/19 18:42 102.6 F H 06/05/19 13:50 98 F 113 H 16 154/89 H 97 Date Exam was Performed: 06/05/19 Time Exam was Performed: 18:45 <Eden Dawson - Last Filed: 06/06/19 00:13> Departure - Departure Time of Disposition: 20:05 Condition: Good, Undetermined - Discharge Information *PRESCRIPTION DRUG MONITORING PROGRAM REVIEWED*: No *COPY OF PRESCRIPTION DRUG MONITORING REPORT IN PATIENT KATELIN: No Sepsis Event Note - Focused Exam Date Exam was Performed: 06/06/19 Time Exam was Performed: 00:06 I have read and agree with the documentation that has been completed regarding this visit. By signing this record, I attest that the documentation was completed in my physical presence and is an accurate record of the encounter.
[2019-06-05] MEDS ORDERED: Acetaminophen 325 MG Tab PO ONE (19:18)
[2019-06-05] MEDS ORDERED: Morphine 2 MG/ML Syringe IVPUSH ONE (19:29)
[2019-06-05] MEDS ORDERED: Ondansetron 4 MG/2 ML SDV IV ONE (19:29)
[2019-06-05] MEDS ORDERED: Sodium Chloride 0.9% 1,000 ML IV SCH (20:00)
== END 2019-06-05 20:05 ==
LOC: DL.ED 13:03
DX: A41.9 Sepsis, unspecified organism (principal); R65.20 Severe sepsis without septic shock; N17.9 Acute kidney failure, unspecified; L03.116 Cellulitis of left lower limb; I86.8 Varicose veins of other specified sites; M25.551 Pain in right hip; M25.552 Pain in left hip; G89.29 Other chronic pain; I10 Essential (primary) hypertension; E11.9 Type 2 diabetes mellitus without complications; Z77.22 Contact with and (suspected) exposure to environmental tobacco smoke (acute) (chronic)
CPT/HCPCS: 36415; 73610; 74176; 80053; 81001; 83605; 85025; 87040; 87086; 87088; 87186; 96365; 96366; 96375; 99284; 99285; A9270; J2270; J2405; J3370; J7030; J7040

== ENCOUNTER 2019-12-28 13:52 | Emergency (ER) | payer MEDICARE ==
[2019-12-28 14:11] VITALS: BP 159/77; PULSE 127
--- NOTE | 2019-12-28 14:14 | EDM.PDOC ---
ED HPI GENERAL MEDICAL PROBLEM - General Chief Complaint: Neurological Problem Stated Complaint: SEIZURE Time Seen by Provider: 12/28/19 14:14 Source of Information: Reports: Patient, RN, RN Notes Reviewed - History of Present Illness INITIAL COMMENTS - FREE TEXT/NARRATIVE: Patient presents to ER per POV with complaint of seizure at home. Ambulance was called, patient refused to be transported by ambulance. states the patient was sitting on the couch watching TV when he began to have a seizure, lasted 1 to 2 minutes according to the . states patient has had seizures in the past but last 1 was not since 2006, when he was on dialysis. She states he does not take any antiseizure medications. Patient denies any headache. Patient is unsure of the day of the week, the date of the month, and the year. Patient is very vague. Patient states he is due for a physical with his primary care provider this month. Patient states he does take pain medications on a regular basis, fentanyl patch 25 mcg, as well as oxycodone. He states he has been out of these medications for a couple days and has not been taking them for 2 to 3 days. Onset: Today, Sudden - Related Data Allergies Allergy/AdvReac Type Severity Reaction Status Date / Time No Known Allergies Allergy Verified 12/28/19 14:08 Home Meds: Home Meds Metoprolol Succinate 100 mg PO DAILY 02/10/19 [History] Multivitamin [Multivitamins] 1 each PO DAILY 02/10/19 [History] Furosemide [Lasix] 40 mg PO DAILY 30 Days #30 tablet 02/19/19 [Rx] oxyCODONE 5 mg PO QID 30 Days #20 tablet 02/19/19 [Rx] Albuterol [Proventil] 2.5 mg INH BID PRN 02/20/19 [History] Fluticasone/Salmeterol [Advair 250-50] 1 puff INH DAILY PRN 02/20/19 [History] fentaNYL [Duragesic] 25 mcg TOP Q3D 12/28/19 [History] Past Medical History HEENT History: Reports: Impaired Vision, Other (See Below) Other HEENT History: frequent tonsillitis, none since Cardiovascular History: Reports: Hypertension Respiratory History: Reports: Asthma, COPD Gastrointestinal History: Reports: None Genitourinary History: Reports: Acute Renal Failure, Dialysis Other Genitourinary History: currently not on dialysis Musculoskeletal History: Reports: Arthritis, Osteoporosis, Other (See Below) Other Musculoskeletal History: hip problems Neurological History: Reports: Seizure Psychiatric History: Reports: None Endocrine/Metabolic History: Reports: Diabetes, Type II, Osteoporosis Hematologic History: Reports: Blood Transfusion(s) Immunologic History: Reports: None Oncologic (Cancer) History: Reports: None Dermatologic History: Reports: Cellulitis, Other (See Below) Other Dermatologic History: EDEMA TO BILATERAL LEGS - Infectious Disease History Infectious Disease History: Reports: Chicken Pox, Measles - Past Surgical History HEENT Surgical History: Reports: Naso-Sinus Surgery Respiratory Surgical History: Reports: None GI Surgical History: Reports: Hernia, Abdominal Musculoskeletal Surgical History: Reports: None Social & Family History - Family History Family Medical History: Noncontributory - Caffeine Use Caffeine Use: Reports: Soda ED ROS GENERAL - Review of Systems Review Of Systems: Comprehensive ROS is negative, except as noted in HPI. - Physical Exam Exam: See Below Exam Limited By: Altered Mental Status (Unsure of date and year, knows the month) General Appearance: Alert, WD/WN, No Apparent Distress Eye Exam: Bilateral Eye: EOMI, Normal Inspection Ears: Normal External Exam, Hearing Grossly Normal Nose: Normal Inspection Throat/Mouth: Normal Inspection, Normal Voice, No Airway Compromise Head Exam: Atraumatic, Normocephalic Neck: Normal Inspection, Supple, Non-Tender, Full Range of Motion Respiratory/Chest: No Respiratory Distress, Lungs Clear, Normal Breath Sounds, No Accessory Muscle Use, Chest Non-Tender Cardiovascular: Normal Peripheral Pulses, Regular Rate, Rhythm, No Edema, No Gallop, No JVD, No Murmur, No Rub GI/Abdominal: Normal Bowel Sounds, Non-Tender, Distended (Male) Exam: Deferred Rectal (Males) Exam: Deferred Neuro Exam (Abbreviated): Alert, Other (disoriented to day and year, states this is normal, uses crutches to ambulate) Back Exam: Normal Inspection, Decreased Range of Motion Extremities: Leg Pain, Limited Range of Motion, Other ( swelling of the legs bilaterally) Psychiatric: Normal Affect, Normal Mood Skin Exam: Warm, Dry, Intact, Normal Color, No Rash Course - Vital Signs Last Recorded V/S: Last Vital Signs Temp 97.0 F 12/28/19 14:09 Pulse 127 H 12/28/19 14:09 Resp 18 12/28/19 14:09 BP 159/77 H 12/28/19 14:09 Pulse Ox 92 L 12/28/19 14:09 - Orders/Labs/Meds Orders: Active Orders 24 hr Category Date Time Status CULTURE URINE [RM] Stat Lab 12/28/19 13:55 Received Labs: Laboratory Tests 12/28/19 12/28/19 12/28/19 Range/Units 13:55 13:55 14:16 WBC 9.1 (5.0-10.0) 10^3/uL RBC 3.70 L (4.6-6.2) 10^6/uL Hgb 13.5 L (14.0-18.0) g/dL Hct 38.1 L (40.0-54.0) % MCV 103.0 H D (80-100) fL MCH 36.5 H (27.0-34.0) pg MCHC 35.4 H (33.0-35.0) g/dL Plt Count 116 L (150-450) 10^3/uL Neut % (Auto) 79.0 H (42.2-75.2) % Lymph % (Auto) 12.3 L (20.5-50.1) % [place] % (Auto) 6.1 (2-8) % Eos % (Auto) 2.2 (1.0-3.0) % Baso % (Auto) 0.4 (0.0-1.0) % Sodium (136-145) mmol/L Potassium (3.5-5.1) mmol/L Chloride (98-107) mmol/L Carbon Dioxide (21-32) mmol/L Anion Gap (7-13) mEq/L BUN (7-18) mg/dL Creatinine (0.70-1.30) mg/dL Est Cr Clr Drug Dosing mL/min Estimated GFR (MDRD) BUN/Creatinine Ratio (No establ ref range) Glucose (74-99) mg/dL Calcium (8.5-10.1) mg/dL Total Bilirubin (0.2-1.0) mg/dL AST (15-37) U/L ALT (16-63) U/L Alkaline Phosphatase (46-116) U/L Troponin I (0.000-0.056) ng/mL Total Protein (6.4-8.2) g/dL Albumin (3.4-5.0) g/dL Globulin Albumin/Globulin Ratio Urine Color Dark yellow (YELLOW) Urine Appearance Slightly cloudy (CLEAR) Urine pH 7.0 (5.0-9.0) Ur Specific [place] 1.020 (1.005-1.030) Urine Protein >=300 H (NEGATIVE) Urine Glucose (UA) Negative (NEGATIVE) Urine Ketones Trace H (NEGATIVE) Urine Occult Blood Trace-intact H (NEGATIVE) Urine Nitrite Positive H (NEGATIVE) Urine Bilirubin Moderate H (NEGATIVE) Urine Urobilinogen 2.0 H (0.2-1.0) mg/dL Ur Leukocyte Esterase Negative (NEGATIVE) Urine RBC 5-10 H /HPF Urine WBC 0-5 (0-5/HPF) /HPF Ur Epithelial Cells Rare (NOT SEEN) /HPF Urine Bacteria Moderate H (0-FEW/HPF) /HPF Urine Mucus Occasional (NOT SEEN) /LPF Urine Other See note Urine Yeast Few H (NOT SEEN) /HPF Urine Opiates Screen Negative (NEGATIVE) Ur Oxycodone Screen Positive H (NEGATIVE) Urine Methadone Screen Negative (NEGATIVE) Ur Barbiturates Screen Negative (NEGATIVE) U Tricyclic Antidepress Negative (NEGATIVE) Ur Phencyclidine Scrn Negative (NEGATIVE) Ur Amphetamine Screen Negative (NEGATIVE) U Methamphetamines Scrn Negative (NEGATIVE) Urine MDMA Screen Negative (NEGATIVE) U Benzodiazepines Scrn Negative (NEGATIVE) Urine Cocaine Screen Negative (NEGATIVE) U Marijuana (THC) Screen Negative (NEGATIVE) Ethyl Alcohol (0) mg/dL 12/27/20 Range/Units 14:16 WBC (5.0-10.0) 10^3/uL RBC (4.6-6.2) 10^6/uL Hgb (14.0-18.0) g/dL Hct (40.0-54.0) % MCV (80-100) fL MCH (27.0-34.0) pg MCHC (33.0-35.0) g/dL Plt Count (150-450) 10^3/uL Neut % (Auto) (42.2-75.2) % Lymph % (Auto) (20.5-50.1) % [place] % (Auto) (2-8) % Eos % (Auto) (1.0-3.0) % Baso % (Auto) (0.0-1.0) % Sodium 136 (136-145) mmol/L Potassium 3.3 L (3.5-5.1) mmol/L Chloride 98 (98-107) mmol/L Carbon Dioxide 25 (21-32) mmol/L Anion Gap 16.3 H (7-13) mEq/L BUN 12 (7-18) mg/dL Creatinine 1.62 H (0.70-1.30) mg/dL Est Cr Clr Drug Dosing 49.26 mL/min Estimated GFR (MDRD) 44 BUN/Creatinine Ratio 7.4 (No establ ref range) Glucose 181 H (74-99) mg/dL Calcium 8.2 L (8.5-10.1) mg/dL Total Bilirubin 5.3 H (0.2-1.0) mg/dL AST 122 H (15-37) U/L ALT 21 (16-63) U/L Alkaline Phosphatase 268 H (46-116) U/L Troponin I < 0.017 (0.000-0.056) ng/mL Total Protein 7.9 (6.4-8.2) g/dL Albumin 2.8 L (3.4-5.0) g/dL Globulin 5.1 Albumin/Globulin Ratio 0.55 Urine Color (YELLOW) Urine Appearance (CLEAR) Urine pH (5.0-9.0) Ur Specific [place] (1.005-1.030) Urine Protein (NEGATIVE) Urine Glucose (UA) (NEGATIVE) Urine Ketones (NEGATIVE) Urine Occult Blood (NEGATIVE) Urine Nitrite (NEGATIVE) Urine Bilirubin (NEGATIVE) Urine Urobilinogen (0.2-1.0) mg/dL Ur Leukocyte Esterase (NEGATIVE) Urine RBC /HPF Urine WBC (0-5/HPF) /HPF Ur Epithelial Cells (NOT SEEN) /HPF Urine Bacteria (0-FEW/HPF) /HPF Urine Mucus (NOT SEEN) /LPF Urine Other Urine Yeast (NOT SEEN) /HPF Urine Opiates Screen (NEGATIVE) Ur Oxycodone Screen (NEGATIVE) Urine Methadone Screen (NEGATIVE) Ur Barbiturates Screen (NEGATIVE) U Tricyclic Antidepress (NEGATIVE) Ur Phencyclidine Scrn (NEGATIVE) Ur Amphetamine Screen (NEGATIVE) U Methamphetamines Scrn (NEGATIVE) Urine MDMA Screen (NEGATIVE) U Benzodiazepines Scrn (NEGATIVE) Urine Cocaine Screen (NEGATIVE) U Marijuana (THC) Screen (NEGATIVE) Ethyl Alcohol < 3 (0) mg/dL - Radiology Interpretation Free Text/Narrative:: Head CT: 1. Extensive, severe, but symmetric cerebral cortical atrophy. Dense physiologic midline pineal calcification. 2. Uniformly thick bony calvarium. No pathologic skeletal lesion, skull fracture, underlying brain contusion, or abnormal extracerebral/intracranial epidural or subdural hematoma. 3. No new supra tentorial or posterior fossa mass lesion, compared for July 2006. 4. Scattered focal areas of decreased attenuation throughout the periventricular white matter both hemispheres including lacunar type infarcts anteriorly but no edema or mass-effect on the surrounding sulcal I. 5. No sign of acute intracerebral, intraventricular, or subarachnoid bleed. 6. Mild cerebellar atrophy. Brainstem unremarkable. 7. Symmetric clear pneumatization of the paranasal and mastoid sinuses. Conclusion: Scattered chronic microvascular ischemic changes. Severe atrophy. No new intracranial mass, edema or signs of acute intracranial bleed. No hydrocephalus. See rad report - Re-Assessments/Exams Free Text/Narrative Re-Assessment/Exam: 12/28/19 15:45 Discussed admission to the hospital for observation with the patient and his . Both are declining admission at this time and request to go home. Departure - Departure Time of Disposition: 15:24 Disposition: Home, Self-Care 01 Condition: Fair Clinical Impression: Narcotic withdrawal, Seizure Urinary tract infection Qualifiers: Urinary tract infection type: site unspecified Hematuria presence: without hematuria Qualified Code(s): N39.0 - Urinary tract infection, site not specified Conjunctivitis Qualifiers: Conjunctivitis type: unspecified Laterality: bilateral Qualified Code(s): H10.9 - Unspecified conjunctivitis - Discharge Information *PRESCRIPTION DRUG MONITORING PROGRAM REVIEWED*: No *COPY OF PRESCRIPTION DRUG MONITORING REPORT IN PATIENT KATELIN: No Instructions: Antibiotic Medicine, Adult, [id number], Non-Epileptic Seizures, Adult, Opioid Withdrawal Treatment, Urinary Tract Infection, Adult, [id number], Seizure, Adult, [id number] Forms: ED Department Discharge Additional Instructions: Rx: Cephalexin, TobraDex Drink plenty of water Follow-up with your primary care provider in the next 1 to 2 weeks Get prescriptions refilled, and take medications as prescribed Sepsis Event Note (ED) - Evaluation Sepsis Screening Result: No Definite Risk - Focused Exam Vital Signs: Vital Signs Temp Pulse Resp BP Pulse Ox 12/28/19 14:09 97.0 F 127 H 18 159/77 H 92 L - My Orders Last 24 Hours: My Active Orders 12/28/19 13:55 CULTURE URINE [RM] Stat - Assessment/Plan Last 24 Hours: My Active Orders 12/28/19 13:55 CULTURE URINE [] Stat
[2019-12-28 14:44] LABS: ANION GAP 16.3 mEq/L (7-13); CHLORIDE,CL 98 mmol/L (98-107); SODIUM,NA 136 mmol/L (136-145)
--- NOTE | 2019-12-28 15:09 | CT ---
EXAMINATION: Head wo Cont SEX: Male AGE: 54 years CLINICAL HISTORY: 54-year-old male [facility] with new onset seizure. Patient reported on last previous CT scan this institution July 2006 for confusion to have "some atrophy". Scan technique: Volume acquisition of data emergency unenhanced CT scan of the head and brain obtained with the patient lying supine on the Siemens multi slice scanner [facility]. All data archived in the PACS system for storage, reformatting axial/sagittal/coronal planes and study (bone/brain windows). Interpretation: 1. Extensive (severe) but symmetric cerebral cortical atrophy. Dense physiologic midline pineal calcification. 2. Uniformly thick bony calvarium. No pathologic skeletal lesion, skull fracture, underlying brain contusion or abnormal extracerebral/intracranial epidural or subdural hematoma. 3. No new supratentorial or posterior fossa mass lesion (compared 10 July 2006). 4. Scattered focal areas of decreased attenuation throughout the periventricular white matter both hemispheres including lacunar type infarcts anteriorly but no edema or mass effect on the surrounding sulci. 5. No sign of acute intracerebral, intraventricular or subarachnoid bleed. 6. Mild cerebellar atrophy. Brainstem unremarkable. 7. Symmetric clear pneumatization of the paranasal and mastoid sinuses. CONCLUSION: Scattered chronic microvascular ischemic changes. Severe atrophy. No new intracranial mass, edema or signs of acute intracranial bleed. No hydrocephalus.
== END 2019-12-28 15:38 | disposition home or self-care (01) ==
LOC: DL.ED 13:52
DX: R56.9 Unspecified convulsions (principal); N39.0 Urinary tract infection, site not specified; F11.23 Opioid dependence with withdrawal; H10.9 Unspecified conjunctivitis; I10 Essential (primary) hypertension; J44.9 Chronic obstructive pulmonary disease, unspecified; E11.9 Type 2 diabetes mellitus without complications; Z79.899 Other long term (current) drug therapy; Z98.890 Other specified postprocedural states
CPT/HCPCS: 36415; 70450; 80053; 80305-QW; 80307; 81001; 84484; 85025; 87086; 87088; 87186; 99285-25

== ENCOUNTER 2020-02-14 19:07 | Emergency (ER) | payer MEDICARE ==
[2020-02-14 19:22] VITALS: BP 145/61; PULSE 108
--- NOTE | 2020-02-14 19:49 | EDM.PDOC ---
ED HPI GENERAL MEDICAL PROBLEM - General Chief Complaint: General Stated Complaint: JOHNSUS, LIVER AND KIDNEY, WEAK TIRED Time Seen by Provider: 02/14/20 19:35 Source of Information: Reports: Patient History Limitations: Reports: No Limitations - History of Present Illness INITIAL COMMENTS - FREE TEXT/NARRATIVE: This 54 yo male patient reports to the ED with increased jaundice and dark urine. The patient reports his symptoms started about 2 weeks ago and has been getting worse. The patient did have an appointment in [place] today, but he was late for his appointment and was not seen. The patient reports he has a history of CKD (previously on dialysis), cirrhosis, and hypertension. The patient reports he has been taking all medications as prescribed. Duration: Week(s):, Constant, Getting Worse Location: Reports: Generalized Quality: Reports: Other Severity: Moderate Improves with: Reports: None Worsens with: Reports: None Context: Reports: Other Associated Symptoms: Reports: No Other Symptoms - Related Data Allergies Allergy/AdvReac Type Severity Reaction Status Date / Time No Known Allergies Allergy Verified 02/14/20 19:18 Home Meds: Home Meds Metoprolol Succinate 100 mg PO DAILY 02/10/19 [History] Multivitamin [Multivitamins] 1 each PO DAILY 02/10/19 [History] Furosemide [Lasix] 40 mg PO DAILY 30 Days #30 tablet 02/19/19 [Rx] oxyCODONE 5 mg PO QID 30 Days #20 tablet 02/19/19 [Rx] Albuterol [Proventil] 2.5 mg INH BID PRN 02/20/19 [History] Fluticasone/Salmeterol [Advair 250-50] 1 puff INH DAILY PRN 02/20/19 [History] fentaNYL [Duragesic] 25 mcg TOP Q3D 12/28/19 [History] Past Medical History HEENT History: Reports: Impaired Vision, Other (See Below) Other HEENT History: frequent tonsillitis, none since Cardiovascular History: Reports: Hypertension Respiratory History: Reports: Asthma, COPD Gastrointestinal History: Reports: Jaundice Other Gastrointestinal History: liver failure in the past Genitourinary History: Reports: Acute Renal Failure, Dialysis Other Genitourinary History: currently not on dialysis Musculoskeletal History: Reports: Arthritis, Osteoporosis, Other (See Below) Other Musculoskeletal History: hip problems Neurological History: Reports: Seizure Psychiatric History: Reports: None Endocrine/Metabolic History: Reports: Diabetes, Type II, Osteoporosis Hematologic History: Reports: Blood Transfusion(s) Immunologic History: Reports: None Oncologic (Cancer) History: Reports: None Dermatologic History: Reports: Cellulitis, Other (See Below) Other Dermatologic History: EDEMA TO BILATERAL LEGS - Infectious Disease History Infectious Disease History: Reports: Chicken Pox, Measles - Past Surgical History HEENT Surgical History: Reports: Naso-Sinus Surgery Respiratory Surgical History: Reports: None GI Surgical History: Reports: Hernia, Abdominal Musculoskeletal Surgical History: Reports: None Social & Family History - Family History Family Medical History: Noncontributory - Tobacco Use Smoking Status *Q: Never Smoker Second Hand Smoke Exposure: No - Caffeine Use Caffeine Use: Reports: Soda - Recreational Drug Use Recreational Drug Use: No ED ROS GENERAL - Review of Systems Review Of Systems: Comprehensive ROS is negative, except as noted in HPI. ED EXAM, GENERAL - Physical Exam Exam: See Below Exam Limited By: No Limitations General Appearance: Alert, WD/WN, No Apparent Distress, Obese Eye Exam: Bilateral Eye: EOMI, PERRL, Other (Jaundice) Ears: Normal External Exam, Normal Canal, Hearing Grossly Normal, Normal TMs Nose: Normal Inspection, Normal Mucosa, No Blood Throat/Mouth: Normal Inspection, Normal Lips, Normal Teeth, Normal Gums, Normal Oropharynx, Normal Voice, No Airway Compromise Head: Atraumatic, Normocephalic Neck: Normal Inspection, Supple, Non-Tender, Full Range of Motion Respiratory/Chest: No Respiratory Distress, Lungs Clear, Normal Breath Sounds, No Accessory Muscle Use, Chest Non-Tender Cardiovascular: Normal Peripheral Pulses, Regular Rate, Rhythm, No Edema, No Gallop, No JVD, No Murmur, No Rub GI/Abdominal: Normal Bowel Sounds, Soft, Non-Tender, No Organomegaly, No Distention, No Abnormal Bruit, No Mass (Male) Exam: Deferred Rectal (Males) Exam: Deferred Back Exam: Normal Inspection, Full Range of Motion, NT Extremities: Normal Inspection, Normal Range of Motion, Non-Tender, Normal Capillary Refill, No Pedal Edema Neurological: Alert, Oriented, CN II-XII Intact, Normal Cognition, Normal Gait, Normal Reflexes, No Motor/Sensory Deficits Psychiatric: Normal Affect, Normal Mood Skin Exam: Jaundice Lymphatic: No Adenopathy Course - Vital Signs Last Recorded V/S: Last Vital Signs Temp 36.6 C 02/14/20 19:19 Pulse 108 H 02/14/20 19:19 Resp 18 02/14/20 19:19 BP 145/61 H 02/14/20 19:19 Pulse Ox 93 L 02/14/20 19:19 - Orders/Labs/Meds Orders: Active Orders 24 hr Category Date Time Status CULTURE BLOOD [BC] Stat Lab 02/14/20 20:05 Received REFLEX LACTIC ACID YES OR NO [CHEM] Routine Lab 02/14/20 20:57 Received Potassium Chloride [KCl 10 MEQ in Water 100 ML] 10 meq Med 02/14/20 21:29 Ordered Premix Bag 1 bag IV ONETIME Sodium Chloride 0.9% [Normal Saline] 1,000 ml Med 02/14/20 21:30 Ordered IV ASDIRECTED Medication Orders Potassium Chloride 10 meq/ (Premix) 100 mls @ 100 mls/hr IV ONETIME ONE Stop: 02/14/20 22:28 Sodium Chloride (Normal Saline) 1,000 mls @ 250 mls/hr IV ASDIRECTED RUTH Labs: Laboratory Tests 02/14/20 02/14/20 02/14/20 Range/Units 20:05 20:05 20:05 WBC 17.2 H (5.0-10.0) 10^3/uL RBC 2.31 L (4.6-6.2) 10^6/uL Hgb 9.2 L D (14.0-18.0) g/dL Hct 24.5 L (40.0-54.0) % MCV 106.1 H D (80-100) fL MCH 39.8 H (27.0-34.0) pg MCHC 37.6 H (33.0-35.0) g/dL Plt Count 273 D (150-450) 10^3/uL Neut % (Auto) 89.7 H (42.2-75.2) % Lymph % (Auto) 4.0 L (20.5-50.1) % [place] % (Auto) 5.8 (2-8) % Eos % (Auto) 0.4 L (1.0-3.0) % Baso % (Auto) 0.1 (0.0-1.0) % Add Manual Diff Yes Neutrophils % (Manual) 92 H (42-75) % Band Neutrophils % 4 % Lymphocytes % (Manual) 3 L (20-50) % Monocytes % (Manual) 1 L (2-8) % Sodium 128 L (136-145) mmol/L Potassium 2.6 L (3.5-5.1) mmol/L Chloride 91 L (98-107) mmol/L Carbon Dioxide 25 (21-32) mmol/L Anion Gap 14.6 H (7-13) mEq/L BUN 22 H (7-18) mg/dL Creatinine 2.83 H D (0.70-1.30) mg/dL Est Cr Clr Drug Dosing 28.20 mL/min Estimated GFR (MDRD) 23 BUN/Creatinine Ratio 7.8 (No establ ref range) Glucose 128 H (74-99) mg/dL Lactic Acid (0.4-2.0) mmol/L Calcium 8.6 (8.5-10.1) mg/dL Magnesium 2.1 (1.8-2.4) mg/dL Total Bilirubin 31.8 H (0.2-1.0) mg/dL AST 127 H (15-37) U/L ALT 50 (16-63) U/L Alkaline Phosphatase 363 H (46-116) U/L Ammonia 116 H (11-32) umol/L B-Natriuretic Peptide (0-100) pg/ml Total Protein 6.8 (6.4-8.2) g/dL Albumin 1.7 L (3.4-5.0) g/dL Globulin 5.1 Albumin/Globulin Ratio 0.33 Amylase 54 (25-115) U/L Lipase 190 (73-393) U/L Urine Color (YELLOW) Urine Appearance (CLEAR) Urine pH (5.0-9.0) Ur Specific [place] (1.005-1.030) Urine Protein (NEGATIVE) Urine Glucose (UA) (NEGATIVE) Urine Ketones (NEGATIVE) Urine Occult Blood (NEGATIVE) Urine Nitrite (NEGATIVE) Urine Bilirubin (NEGATIVE) Urine Urobilinogen (0.2-1.0) mg/dL Ur Leukocyte Esterase (NEGATIVE) Urine RBC /HPF Urine WBC (0-5/HPF) /HPF Ur Epithelial Cells (NOT SEEN) /HPF Amorphous Sediment (NOT SEEN) /HPF Urine Bacteria (0-FEW/HPF) /HPF Urine Mucus (NOT SEEN) /LPF Urine Opiates Screen (NEGATIVE) Ur Oxycodone Screen (NEGATIVE) Urine Methadone Screen (NEGATIVE) Acetaminophen 0 L (10-30 (Therapeutic)) ug/mL Ur Barbiturates Screen (NEGATIVE) U Tricyclic Antidepress (NEGATIVE) Ur Phencyclidine Scrn (NEGATIVE) Ur Amphetamine Screen (NEGATIVE) U Methamphetamines Scrn (NEGATIVE) Urine MDMA Screen (NEGATIVE) U Benzodiazepines Scrn (NEGATIVE) Urine Cocaine Screen (NEGATIVE) U Marijuana (THC) Screen (NEGATIVE) Ethyl Alcohol < 3 (0) mg/dL 02/14/20 02/14/20 02/14/20 Range/Units 20:05 20:05 20:47 WBC (5.0-10.0) 10^3/uL RBC (4.6-6.2) 10^6/uL Hgb (14.0-18.0) g/dL Hct (40.0-54.0) % MCV (80-100) fL MCH (27.0-34.0) pg MCHC (33.0-35.0) g/dL Plt Count (150-450) 10^3/uL Neut % (Auto) (42.2-75.2) % Lymph % (Auto) (20.5-50.1) % [place] % (Auto) (2-8) % Eos % (Auto) (1.0-3.0) % Baso % (Auto) (0.0-1.0) % Add Manual Diff Neutrophils % (Manual) (42-75) % Band Neutrophils % % Lymphocytes % (Manual) (20-50) % Monocytes % (Manual) (2-8) % Sodium (136-145) mmol/L Potassium (3.5-5.1) mmol/L Chloride (98-107) mmol/L Carbon Dioxide (21-32) mmol/L Anion Gap (7-13) mEq/L BUN (7-18) mg/dL Creatinine (0.70-1.30) mg/dL Est Cr Clr Drug Dosing mL/min Estimated GFR (MDRD) BUN/Creatinine Ratio (No establ ref range) Glucose (74-99) mg/dL Lactic Acid 5.6 H* (0.4-2.0) mmol/L Calcium (8.5-10.1) mg/dL Magnesium (1.8-2.4) mg/dL Total Bilirubin (0.2-1.0) mg/dL AST (15-37) U/L ALT (16-63) U/L Alkaline Phosphatase (46-116) U/L Ammonia (11-32) umol/L B-Natriuretic Peptide 172 H (0-100) pg/ml Total Protein (6.4-8.2) g/dL Albumin (3.4-5.0) g/dL Globulin Albumin/Globulin Ratio Amylase (25-115) U/L Lipase (73-393) U/L Urine Color [place] (YELLOW) Urine Appearance Slightly cloudy (CLEAR) Urine pH 5.5 (5.0-9.0) Ur Specific [place] 1.015 (1.005-1.030) Urine Protein 30 H (NEGATIVE) Urine Glucose (UA) 100 H (NEGATIVE) Urine Ketones Trace H (NEGATIVE) Urine Occult Blood Trace-intact H (NEGATIVE) Urine Nitrite Negative (NEGATIVE) Urine Bilirubin Large H (NEGATIVE) Urine Urobilinogen 1.0 (0.2-1.0) mg/dL Ur Leukocyte Esterase Negative (NEGATIVE) Urine RBC 0-5 /HPF Urine WBC 0-5 (0-5/HPF) /HPF Ur Epithelial Cells Few (NOT SEEN) /HPF Amorphous Sediment Many (NOT SEEN) /HPF Urine Bacteria Occasional (0-FEW/HPF) /HPF Urine Mucus Few H (NOT SEEN) /LPF Urine Opiates Screen (NEGATIVE) Ur Oxycodone Screen (NEGATIVE) Urine Methadone Screen (NEGATIVE) Acetaminophen (10-30 (Therapeutic)) ug/mL Ur Barbiturates Screen (NEGATIVE) U Tricyclic Antidepress (NEGATIVE) Ur Phencyclidine Scrn (NEGATIVE) Ur Amphetamine Screen (NEGATIVE) U Methamphetamines Scrn (NEGATIVE) Urine MDMA Screen (NEGATIVE) U Benzodiazepines Scrn (NEGATIVE) Urine Cocaine Screen (NEGATIVE) U Marijuana (THC) Screen (NEGATIVE) Ethyl Alcohol (0) mg/dL 02/14/20 Range/Units 20:47 WBC (5.0-10.0) 10^3/uL RBC (4.6-6.2) 10^6/uL Hgb (14.0-18.0) g/dL Hct (40.0-54.0) % MCV (80-100) fL MCH (27.0-34.0) pg MCHC (33.0-35.0) g/dL Plt Count (150-450) 10^3/uL Neut % (Auto) (42.2-75.2) % Lymph % (Auto) (20.5-50.1) % [place] % (Auto) (2-8) % Eos % (Auto) (1.0-3.0) % Baso % (Auto) (0.0-1.0) % Add Manual Diff Neutrophils % (Manual) (42-75) % Band Neutrophils % % Lymphocytes % (Manual) (20-50) % Monocytes % (Manual) (2-8) % Sodium (136-145) mmol/L Potassium (3.5-5.1) mmol/L Chloride (98-107) mmol/L Carbon Dioxide (21-32) mmol/L Anion Gap (7-13) mEq/L BUN (7-18) mg/dL Creatinine (0.70-1.30) mg/dL Est Cr Clr Drug Dosing mL/min Estimated GFR (MDRD) BUN/Creatinine Ratio (No establ ref range) Glucose (74-99) mg/dL Lactic Acid (0.4-2.0) mmol/L Calcium (8.5-10.1) mg/dL Magnesium (1.8-2.4) mg/dL Total Bilirubin (0.2-1.0) mg/dL AST (15-37) U/L ALT (16-63) U/L Alkaline Phosphatase (46-116) U/L Ammonia (11-32) umol/L B-Natriuretic Peptide (0-100) pg/ml Total Protein (6.4-8.2) g/dL Albumin (3.4-5.0) g/dL Globulin Albumin/Globulin Ratio Amylase (25-115) U/L Lipase (73-393) U/L Urine Color (YELLOW) Urine Appearance (CLEAR) Urine pH (5.0-9.0) Ur Specific [place] (1.005-1.030) Urine Protein (NEGATIVE) Urine Glucose (UA) (NEGATIVE) Urine Ketones (NEGATIVE) Urine Occult Blood (NEGATIVE) Urine Nitrite (NEGATIVE) Urine Bilirubin (NEGATIVE) Urine Urobilinogen (0.2-1.0) mg/dL Ur Leukocyte Esterase (NEGATIVE) Urine RBC /HPF Urine WBC (0-5/HPF) /HPF Ur Epithelial Cells (NOT SEEN) /HPF Amorphous Sediment (NOT SEEN) /HPF Urine Bacteria (0-FEW/HPF) /HPF Urine Mucus (NOT SEEN) /LPF Urine Opiates Screen Positive H (NEGATIVE) Ur Oxycodone Screen Positive H (NEGATIVE) Urine Methadone Screen Negative (NEGATIVE) Acetaminophen (10-30 (Therapeutic)) ug/mL Ur Barbiturates Screen Negative (NEGATIVE) U Tricyclic Antidepress Negative (NEGATIVE) Ur Phencyclidine Scrn Negative (NEGATIVE) Ur Amphetamine Screen Negative (NEGATIVE) U Methamphetamines Scrn Negative (NEGATIVE) Urine MDMA Screen Negative (NEGATIVE) U Benzodiazepines Scrn Negative (NEGATIVE) Urine Cocaine Screen Negative (NEGATIVE) U Marijuana (THC) Screen Negative (NEGATIVE) Ethyl Alcohol (0) mg/dL Meds: Medications Generic Name Dose Route Start Last Admin Trade Name Freq PRN Reason Stop Dose Admin Potassium Chloride 10 meq/ 100 mls @ 100 mls/hr 02/14/20 21:29 Premix IV 02/14/20 22:28 ONETIME ONE Sodium Chloride 1,000 mls @ 250 mls/hr 02/14/20 21:30 Normal Saline IV ASDIRECTED RUTH Discontinued Medications Generic Name Dose Route Start Last Admin Trade Name Freq PRN Reason Stop Dose Admin Lactulose 20 gm 02/14/20 21:29 Cephulac PO 02/14/20 21:30 ONETIME ONE Departure - Departure Time of Disposition: 21:38 Disposition: DC/Tfer to [facility] 02 Condition: Serious Clinical Impression: Hyponatremia, Hypokalemia, Hyperammonemia, Jaundice Acute renal failure Qualifiers: Acute renal failure type: unspecified Qualified Code(s): N17.9 - Acute kidney failure, unspecified Leukocytosis Qualifiers: Leukocytosis type: bandemia Qualified Code(s): D72.825 - Bandemia - Discharge Information *PRESCRIPTION DRUG MONITORING PROGRAM REVIEWED*: Not Applicable *COPY OF PRESCRIPTION DRUG MONITORING REPORT IN PATIENT KATELIN: Not Applicable Forms: Interfacility Transfer EMTALA Care Plan Goals: Discussed the patient's history, examination, lab results and treatments with Dr. Castro ([facility] ED Provider). Dr. Castro accepted the patient for continued evaluation and further management at [facility] in [place]. The patient will be transported by [facility]. Sepsis Event Note (ED) - Evaluation Sepsis Screening Result: No Definite Risk - Focused Exam Vital Signs: Vital Signs Temp Pulse Resp BP Pulse Ox 02/14/20 19:19 36.6 C 108 H 18 145/61 H 93 L - My Orders Last 24 Hours: My Active Orders 02/14/20 20:05 CULTURE BLOOD [BC] Stat 02/14/20 20:57 REFLEX LACTIC ACID YES OR NO [CHEM] Routine 02/14/20 21:29 Potassium Chloride [KCl 10 MEQ in Water 100 ML] 10 meq Premix Bag 1 bag IV ONETIME 02/14/20 21:30 Sodium Chloride 0.9% [Normal Saline] 1,000 ml IV ASDIRECTED - Assessment/Plan Last 24 Hours: My Active Orders 02/14/20 20:05 CULTURE BLOOD [BC] Stat 02/14/20 20:57 REFLEX LACTIC ACID YES OR NO [CHEM] Routine 02/14/20 21:29 Potassium Chloride [KCl 10 MEQ in Water 100 ML] 10 meq Premix Bag 1 bag IV ONETIME 02/14/20 21:30 Sodium Chloride 0.9% [Normal Saline] 1,000 ml IV ASDIRECTED
[2020-02-14 20:54] LABS: ANION GAP 14.6 mEq/L (7-13); CHLORIDE,CL 91 mmol/L (98-107); SODIUM,NA 128 mmol/L (136-145)
[2020-02-14 21:06] LABS: ACETAMINOPHEN 0 ug/mL (10-30 (Therapeutic))
[2020-02-14] MEDS ORDERED: Lactulose Soln 10 GM/15 ML 30 ML UD Cup PO ONE (21:29)
[2020-02-14] MEDS ORDERED: Potassium Chloride 10 MEQ in Premix Bag 1 BAG IV ONE (21:29)
[2020-02-14] MEDS ORDERED: Sodium Chloride 0.9% 1,000 ML IV SCH (21:30)
== END 2020-02-14 21:59 ==
LOC: DL.ED 19:07
DX: N17.9 Acute kidney failure, unspecified (principal); E87.1 Hypo-osmolality and hyponatremia; E87.6 Hypokalemia; E72.20 Disorder of urea cycle metabolism, unspecified; R17 Unspecified jaundice; D72.825 Bandemia; J44.9 Chronic obstructive pulmonary disease, unspecified; I10 Essential (primary) hypertension; E11.9 Type 2 diabetes mellitus without complications; Z79.899 Other long term (current) drug therapy; Z99.2 Dependence on renal dialysis
CPT/HCPCS: 36415; 80053; 80305; 80307; 81001; 82140; 82150; 83605; 83690; 83735; 83880; 85025; 87040; 96374; 99285; A9270; J3480; J7030

== ENCOUNTER 2020-02-26 19:14 | Emergency (ER) | payer MEDICARE ==
[2020-02-26 19:32] VITALS: BP 103/47; PULSE 50
[2020-02-26] MEDS ORDERED: Potassium Chloride 10 MEQ in Premix Bag 1 BAG IV ONE (19:40)
--- NOTE | 2020-02-26 19:52 | CR ---
PROCEDURE INFORMATION: Exam: XR Chest, 1 View Exam date and time: 02/26/2020 7:41 PM Age: 54 years old Clinical indication: Other: Weakness, fatigue; Additional info: Jaundice TECHNIQUE: Imaging protocol: XR of the chest Views: 1 view. COMPARISON: CR Chest 2V 02/10/2019 4:04 PM FINDINGS: Lungs: There is mild nonspecific prominence of the pulmonary vasculature. Minor non-specific patchy linear density at both bases. These changes could be inflammatory or could reflect atelectasis. Pleural space: There may be small bilateral pleural effusions. Heart/Mediastinum: There is mild cardiomegaly. Bones/joints: No acute bony findings are identified. IMPRESSION: 1. Findings suggest an element of pulmonary venous hypertension. There is no overt sign of pulmonary edema. Volume overload cannot be excluded. 2. Minor non-specific patchy linear density at both bases. These changes could be inflammatory or could reflect atelectasis.
[2020-02-26] MEDS: Norepinephrine 4 MG/4 ML SDV ONE (20:04)
[2020-02-26 20:21] LABS: ANION GAP 22.7 mEq/L (7-13); CHLORIDE,CL 98 mmol/L (98-107); SODIUM,NA 133 mmol/L (136-145)
[2020-02-27] MEDS: Norepinephrine 4 MG/4 ML SDV ONE (19:55)
[2020-02-27] MEDS ORDERED: Norepinephrine 4 MG in Dextrose 5% in Water 246 ML IV SCH ×2 (19:55)
--- NOTE | 2020-02-28 04:58 | EDM.PDOC ---
ED HPI GENERAL MEDICAL PROBLEM - General Chief Complaint: General Stated Complaint: AMBULANCE Time Seen by Provider: 02/26/20 19:30 Source of Information: Reports: Patient History Limitations: Reports: No Limitations - History of Present Illness INITIAL COMMENTS - FREE TEXT/NARRATIVE: ED via [facility] with initial report of cirrhosis and unable to arouse. EMS report patient had eyes closed but awake, reported to them he heard family talking to him but didn't want to talk to them. Patient abdomen distended. Obvious jaundice. Initial BP 70/ Improved on arrival. Patient remote hx 14 years ago for renal dialysis, shunt remains . EMS reported, skin tear to left upper arm during transfer out of house. no active bleeding. Family report clinic visit yesterday and to be set up with specialist. Recent hospitalization in [place] over weekend but no treatments or dialysis there. Patient reports feeling week. No SOB, chest pain or nausea. Not eating well recently. - Related Data Allergies Allergy/AdvReac Type Severity Reaction Status Date / Time No Known Allergies Allergy Verified 02/26/20 19:34 Home Meds: Home Meds Metoprolol Succinate 100 mg PO DAILY 02/10/19 [History] Multivitamin [Multivitamins] 1 each PO DAILY 02/10/19 [History] Furosemide [Lasix] 40 mg PO DAILY 30 Days #30 tablet 02/19/19 [Rx] oxyCODONE 5 mg PO QID 30 Days #20 tablet 02/19/19 [Rx] Albuterol [Proventil] 2.5 mg INH BID PRN 02/20/19 [History] Fluticasone/Salmeterol [Advair 250-50] 1 puff INH DAILY PRN 02/20/19 [History] fentaNYL [Duragesic] 25 mcg TOP Q3D 12/28/19 [History] Past Medical History HEENT History: Reports: Impaired Vision, Other (See Below) Other HEENT History: frequent tonsillitis, none since Cardiovascular History: Reports: Hypertension Respiratory History: Reports: Asthma, COPD Gastrointestinal History: Reports: Jaundice Other Gastrointestinal History: liver failure in the past Genitourinary History: Reports: Acute Renal Failure, Dialysis Other Genitourinary History: currently not on dialysis Musculoskeletal History: Reports: Arthritis, Osteoporosis, Other (See Below) Other Musculoskeletal History: hip problems Neurological History: Reports: Seizure Psychiatric History: Reports: None Endocrine/Metabolic History: Reports: Diabetes, Type II, Osteoporosis Hematologic History: Reports: Blood Transfusion(s) Immunologic History: Reports: None Oncologic (Cancer) History: Reports: None Dermatologic History: Reports: Cellulitis, Other (See Below) Other Dermatologic History: EDEMA TO BILATERAL LEGS - Infectious Disease History Infectious Disease History: Reports: Chicken Pox, Measles - Past Surgical History HEENT Surgical History: Reports: Naso-Sinus Surgery Respiratory Surgical History: Reports: None GI Surgical History: Reports: Hernia, Abdominal Musculoskeletal Surgical History: Reports: None Social & Family History - Family History Family Medical History: Noncontributory - Tobacco Use Smoking Status *Q: Never Smoker - Caffeine Use Caffeine Use: Reports: None - Recreational Drug Use Recreational Drug Use: No ED ROS GENERAL - Review of Systems Review Of Systems: Comprehensive ROS is negative, except as noted in HPI. ED EXAM, GENERAL - Physical Exam Exam: See Below Exam Limited By: No Limitations General Appearance: Alert, Obese, Other (Severe jaundice.) Eye Exam: Bilateral Eye: EOMI, Other (scleral icterus) Ears: Normal External Exam, Hearing Grossly Normal Nose: Normal Inspection Throat/Mouth: Other (membranes dry) Head: Atraumatic, Normocephalic Neck: Normal Inspection Respiratory/Chest: No Respiratory Distress, Decreased Breath Sounds (bases bilateral) Cardiovascular: Normal Peripheral Pulses, Bradycardia. No: No Edema (3+ bilateral lower) GI/Abdominal: Distended. No: Guarding, Tender Extremities: Pedal Edema Neurological: Alert, Oriented, Slow to Respond Psychiatric: Flat Affect Skin Exam: Warm, Dry, Intact, Jaundice Course - Vital Signs Last Recorded V/S: Last Vital Signs Temp 97.7 F 02/26/20 19:31 Pulse 50 L 02/26/20 19:31 Resp 16 02/26/20 19:31 BP 103/47 L 02/26/20 19:31 Pulse Ox 94 L 02/26/20 19:31 - Orders/Labs/Meds Labs: Laboratory Tests 02/26/20 02/26/20 02/26/20 Range/Units 19:15 19:15 19:15 WBC 15.4 H (5.0-10.0) 10^3/uL RBC 2.74 L (4.6-6.2) 10^6/uL Hgb 10.5 L (14.0-18.0) g/dL Hct 28.4 L (40.0-54.0) % MCV 103.6 H (80-100) fL MCH 38.3 H (27.0-34.0) pg MCHC 37.0 H (33.0-35.0) g/dL Plt Count 252 (150-450) 10^3/uL Neut % (Auto) 84.8 H (42.2-75.2) % Lymph % (Auto) 6.4 L (20.5-50.1) % [place] % (Auto) 6.8 (2-8) % Eos % (Auto) 1.7 (1.0-3.0) % Baso % (Auto) 0.3 (0.0-1.0) % PT 14.4 H (9.0-12.0) SEC INR 1.5 H (0.9-1.2) Sodium 133 L (136-145) mmol/L Potassium 4.7 D (3.5-5.1) mmol/L Chloride 98 (98-107) mmol/L Carbon Dioxide 17 L (21-32) mmol/L Anion Gap 22.7 H (7-13) mEq/L BUN 73 H D (7-18) mg/dL Creatinine 5.31 H* D (0.70-1.30) mg/dL Est Cr Clr Drug Dosing 14.02 mL/min Estimated GFR (MDRD) 11 BUN/Creatinine Ratio 13.7 (No establ ref range) Glucose 79 (74-99) mg/dL Lactic Acid (0.4-2.0) mmol/L Calcium 8.5 (8.5-10.1) mg/dL Total Bilirubin 29.4 H (0.2-1.0) mg/dL AST 106 H (15-37) U/L ALT 36 (16-63) U/L Alkaline Phosphatase 365 H (46-116) U/L Ammonia (11-32) umol/L Troponin I < 0.017 (0.000-0.056) ng/mL B-Natriuretic Peptide 1160 H (0-100) pg/ml Total Protein 6.8 (6.4-8.2) g/dL Albumin 1.4 L (3.4-5.0) g/dL Globulin 5.4 Albumin/Globulin Ratio 0.26 Amylase 91 (25-115) U/L Lipase 237 (73-393) U/L Ethyl Alcohol < 3 (0) mg/dL 02/26/20 02/26/20 Range/Units 19:15 19:15 WBC (5.0-10.0) 10^3/uL RBC (4.6-6.2) 10^6/uL Hgb (14.0-18.0) g/dL Hct (40.0-54.0) % MCV (80-100) fL MCH (27.0-34.0) pg MCHC (33.0-35.0) g/dL Plt Count (150-450) 10^3/uL Neut % (Auto) (42.2-75.2) % Lymph % (Auto) (20.5-50.1) % [place] % (Auto) (2-8) % Eos % (Auto) (1.0-3.0) % Baso % (Auto) (0.0-1.0) % PT (9.0-12.0) SEC INR (0.9-1.2) Sodium (136-145) mmol/L Potassium (3.5-5.1) mmol/L Chloride (98-107) mmol/L Carbon Dioxide (21-32) mmol/L Anion Gap (7-13) mEq/L BUN (7-18) mg/dL Creatinine (0.70-1.30) mg/dL Est Cr Clr Drug Dosing mL/min Estimated GFR (MDRD) BUN/Creatinine Ratio (No establ ref range) Glucose (74-99) mg/dL Lactic Acid 2.5 H* (0.4-2.0) mmol/L Calcium (8.5-10.1) mg/dL Total Bilirubin (0.2-1.0) mg/dL AST (15-37) U/L ALT (16-63) U/L Alkaline Phosphatase (46-116) U/L Ammonia 115 H (11-32) umol/L Troponin I (0.000-0.056) ng/mL B-Natriuretic Peptide (0-100) pg/ml Total Protein (6.4-8.2) g/dL Albumin (3.4-5.0) g/dL Globulin Albumin/Globulin Ratio Amylase (25-115) U/L Lipase (73-393) U/L Ethyl Alcohol (0) mg/dL Meds: Medications Discontinued Medications Generic Name Dose Route Start Last Admin Trade Name Luiza PRN Reason Stop Dose Admin Potassium Chloride 10 meq/ 100 mls @ 100 mls/hr 02/26/20 19:40 02/26/20 19:49 Premix IV 02/26/20 20:39 100 mls/hr ONETIME ONE Administration Norepinephrine Bitartrate Confirm 02/26/20 19:55 02/26/20 20:04 Levophed Administered 02/26/20 19:56 4 mg Dose Administration 4 mg .ROUTE .STK-MED ONE - Re-Assessments/Exams Free Text/Narrative Re-Assessment/Exam: [facility], Patient tx via [facility]. Minimal response to fluid blous , Levophed initiated prior to transfer. Patient and family request full code status. Departure - Departure Time of Disposition: 21:20 Disposition: DC/Tfer to [facility] 02 Condition: Serious Clinical Impression: Hyperammonemia, Hyperbilirubinemia Cirrhosis Qualifiers: Hepatic cirrhosis type: alcoholic cirrhosis Ascites presence: with ascites Qualified Code(s): K70.31 - Alcoholic cirrhosis of liver with ascites Renal failure (ARF), acute on chronic Qualifiers: Acute renal failure type: unspecified Chronic kidney disease stage: unspecified stage Qualified Code(s): N17.9 - Acute kidney failure, unspecified; N18.9 - Chronic kidney disease, unspecified Ascites Qualifiers: Ascites type: due to alcoholic cirrhosis Qualified Code(s): K70.31 - Alcoholic cirrhosis of liver with ascites - Discharge Information *PRESCRIPTION DRUG MONITORING PROGRAM REVIEWED*: No *COPY OF PRESCRIPTION DRUG MONITORING REPORT IN PATIENT KATELIN: No Referrals: Harsha Mcgowan MD [Primary Care Provider] - Forms: ED Department Discharge Sepsis Event Note (ED) - Evaluation Sepsis Screening Result: No Definite Risk
== END 2020-02-26 21:14 ==
LOC: DL.ED 19:14
DX: E72.20 Disorder of urea cycle metabolism, unspecified (principal); E80.6 Other disorders of bilirubin metabolism; K70.31 Alcoholic cirrhosis of liver with ascites; N17.9 Acute kidney failure, unspecified; M19.90 Unspecified osteoarthritis, unspecified site; J44.9 Chronic obstructive pulmonary disease, unspecified; I12.9 Hypertensive chronic kidney disease with stage 1 through stage 4 chronic kidney disease, or unspecified chronic kidney disease; E11.22 Type 2 diabetes mellitus with diabetic chronic kidney disease; N18.9 Chronic kidney disease, unspecified; Z79.899 Other long term (current) drug therapy
CPT/HCPCS: 36415; 71045; 80053; 80307; 82140; 82150; 83605; 83690; 83880; 84484; 85025; 85610; 87040; 96365; 96367; 99285; J3480; 99284